=== PATIENT | male | born 1965 | race Caucasian/White ===

== ENCOUNTER 2016-03-24 14:28 | Outpatient (CLI) | payer MEDICAID | END 2016-03-24 14:29 | disposition home or self-care (01) | DX: M51.36 Other intervertebral disc degeneration, lumbar region (principal) ==

== ENCOUNTER 2016-12-12 09:45 | Outpatient (CLI) | payer MEDICAID | END 2016-12-12 10:00 | disposition home or self-care (01) | LOC: RT.N 09:45 | PROVIDERS: ATTEND Nurse Practitioner Gerontology | DX: R07.9 Chest pain, unspecified (principal) | CPT/HCPCS: 93005 ==

== ENCOUNTER 2017-01-16 11:06 | Emergency (ER) | payer MEDICAID ==
--- NOTE | 2017-01-16 11:44 | ED Physician Documentation ---
History of Present Illness - Stated complaint Stated Complaint: R SIDE TINGLE/BACK AND HEAD PX - Chief complaint Chief Complaint: General - Additonal information Additional information: hx from pt 51 male hx CAD AL, also pancreatitis felt fine yesterday today has right rided head jaw neck pain into upper back that feels like an elephant is sitting on him no SOA very weak and dizzy no fever no cough no SOA no bloody black BM no abd pain no recent med changes Review of Systems Constitutional: reports: Fatigue. denies: Fever, Chills Cardiac: denies: Chest pain / pressure Respiratory: denies: Dyspnea GI: denies: Nausea, Vomiting, Diarrhea, Bloody / black stool : denies: Dysuria Musculoskeletal: reports: Neck pain, Back pain Neurologic: reports: Generalized weakness Endocrine: denies: Easy bruising / bleeding Immunocompromised: denies: Immunocompromised PD PAST MEDICAL HISTORY - Past Medical History Cardiovascular: [place], Other Respiratory: None Neuro: Headache/migraine, Head injury, Peripheral neuropathy Endocrine/Autoimmune: None GI: None : None HEENT: None Psych: Depression Musculoskeletal: Osteoarthritis Derm: None - Past Surgical History Past Surgical History: Yes General: Colonoscopy Ortho: Other - Present Medications Home Medications: Ambulatory Orders Medication Instructions Recorded Confirmed Ascorbic Acid/Bioflavonoids [Vit 1,000 mg PO DAILY 08/23/13 09/23/13 C-Bioflavonoids Tab SA] FLUoxetine [PROzac] 40 mg PO DAILY 08/23/13 09/23/13 Gabapentin [Neurontin] 600 mg PO TID 08/23/13 09/23/13 Potassium Gluconate 550 mg PO DAILY 08/23/13 09/23/13 Trazodone HCl 100 mg PO QPM 08/23/13 09/23/13 Vit B12/FA/Pyridoxine HCl/Aa15 2,500 mg PO DAILY 08/23/13 09/23/13 [Glycotrol Capsule] Amox/Clav 875/125 [Augmentin] 1 each PO Q12H #20 tablet 01/16/17 - Allergies Allergies/Adverse Reactions: Allergies Allergy/AdvReac Type Severity Reaction Status Date / Time No Known Drug Allergies Allergy Verified 08/23/13 11:31 - Social History Does the pt smoke?: Yes Smoking Status: Current every day smoker Does the pt drink ETOH?: Yes Does the pt have substance abuse?: No - Immunizations Immunizations are current?: Yes PD ED PE NORMAL - Vitals Vital signs reviewed: Yes - General General: Alert and oriented X 3 - HEENT HEENT: PERRL - Neck Neck: Supple, no meningeal sign - Cardiac Cardiac: RRR - Respiratory Respiratory: No respiratory distress, Clear bilaterally - Abdomen Abdomen: Soft, Non tender, Other (no pulsatile mass) - Derm Derm: Normal color (not pale or diaphoretic) - Extremities Extremities: No deformity - Neuro Neuro: Alert and oriented X 3 Results - Vitals Vitals: Vital Signs - 24 hr 01/16/17 01/16/17 01/16/17 11:19 12:00 12:49 Temperature 36.0 C L Heart Rate 96 74 78 Respiratory 18 19 17 Rate Blood Pressure 63/37 L 88/55 L 81/46 L O2 Saturation 97 100 99 01/16/17 01/16/17 01/16/17 13:05 13:46 15:08 Temperature Heart Rate 62 67 74 Respiratory 12 16 16 Rate Blood Pressure 96/62 107/75 122/68 O2 Saturation 99 97 100 Oxygen O2 Source Room air - EKG (time done) 1145 Rate: Rate (enter#) Rhythm: NSR [place]: RAD Intervals: Prolonged QT Ischemia: Normal ST segments - Labs Labs: Laboratory Tests 01/16/17 01/16/17 01/16/17 11:08 11:40 11:40 WBC 6.6 RBC 3.54 L Hgb 12.7 L Hct 36.7 L MCV 103.6 H MCH 35.8 H MCHC 34.5 RDW 14.1 Plt Count 269 MPV 7.4 Neut # 4.1 Lymph # 1.4 L [place] # 0.8 Eos # 0.1 Baso # 0.1 Absolute Nucleated RBC 0.01 Nucleated RBC % 0.1 Sodium 137 Potassium 3.2 L Chloride 101 Carbon Dioxide 21 Anion Gap 15.0 H BUN 19 Creatinine 1.5 H Estimated GFR (MDRD) 49 L Glucose 101 H Lactic Acid 3.2 H* Calcium 9.4 Total Bilirubin 0.4 AST 69 H ALT 54 Alkaline Phosphatase 56 Troponin I Total Protein 7.6 Albumin 4.2 Globulin 3.4 Albumin/Globulin Ratio 1.2 Lipase 62 H Urine Color Urine Clarity Urine pH Ur Specific [place] Urine Protein Urine Glucose (UA) Urine Ketones Urine Occult Blood Urine Nitrite Urine Bilirubin Urine Urobilinogen Ur Leukocyte Esterase Urine RBC Urine WBC Ur Squamous Epith Cells Urine Bacteria Urine Casts Ur Microscopic Review Urine Culture Comments Urine Opiates Screen Ur Oxycodone Screen Urine Methadone Screen Ur Propoxyphene Screen Ur Barbiturates Screen Ur Tricyclics Screen Ur Phencyclidine Scrn Ur Amphetamine Screen U Methamphetamines Scrn U Benzodiazepines Scrn Urine Cocaine Screen U Cannabinoids Screen 01/16/17 01/16/17 11:40 13:00 WBC RBC Hgb Hct MCV MCH MCHC RDW Plt Count MPV Neut # Lymph # [place] # Eos # Baso # Absolute Nucleated RBC Nucleated RBC % Sodium Potassium Chloride Carbon Dioxide Anion Gap BUN Creatinine Estimated GFR (MDRD) Glucose Lactic Acid Calcium Total Bilirubin AST ALT Alkaline Phosphatase Troponin I < 0.04 Total Protein Albumin Globulin Albumin/Globulin Ratio Lipase Urine Color YELLOW Urine Clarity HAZY Urine pH 6.0 Ur Specific [place] 1.025 Urine Protein NEGATIVE Urine Glucose (UA) NEGATIVE Urine Ketones TRACE Urine Occult Blood NEGATIVE Urine Nitrite NEGATIVE Urine Bilirubin NEGATIVE Urine Urobilinogen 0.2 (NORMAL) Ur Leukocyte Esterase TRACE H Urine RBC 0-5 Urine WBC 4-5 Ur Squamous Epith Cells RARE Squamous Urine Bacteria None Seen Urine Casts >50 Hyaline Casts Ur Microscopic Review INDICATED Urine Culture Comments INDICATED Urine Opiates Screen NEGATIVE Ur Oxycodone Screen NEGATIVE Urine Methadone Screen NEGATIVE Ur Propoxyphene Screen NEGATIVE Ur Barbiturates Screen NEGATIVE Ur Tricyclics Screen NEGATIVE Ur Phencyclidine Scrn NEGATIVE Ur Amphetamine Screen NEGATIVE U Methamphetamines Scrn NEGATIVE U Benzodiazepines Scrn NEGATIVE Urine Cocaine Screen NEGATIVE U Cannabinoids Screen NEGATIVE - Rads (name of study) CXR Radiology: See rad report (no acute) PD MEDICAL DECISION MAKING - ED course ED course: hypotension no fever but elev lactate - possible sepsis - etiology unclear - deneis IVDA, no murmur, neg CXR, neg UA, no skin lesions- gave invanz also c/o neck and back pressure EKG no acute and trop neg denies bloody black BM and nl H/H no recent med changes recommended admit for presumed sepsis and further eval and care such as IVF antibiotics echo etc but pt refuses to stay in the hospital stating he does not like hospitals I explained I cannot fix sepsis and/or hypotension in just an ER visit and that i strongly rec admission and he might if he leaves - he still chooses to leave - he is lucid, does not seem intoxicated, understands what i am saying and can repeat back, appears to have the capacity to sign out AMA so gave 30cc/kg + IVF and invanv pt felt better will dc AMA with augmentin and pt will need to fup [facility] for a recheck and return if worse we spoke at length Departure - Departure Disposition: 07 Against Medical Advice Clinical Impression: Renal insufficiency, Hypokalemia, Prolonged QT interval Hypotension Qualifiers: Hypotension type: unspecified hypotension type Qualified Code(s): I95.9 - Hypotension, unspecified Sepsis Qualifiers: Sepsis type: sepsis due to unspecified organism Qualified Code(s): A41.9 - Sepsis, unspecified organism Condition: Serious Instructions: ED Bacteremia Rule Out, ED Hypotension All Causes Follow-Up: Melanie Cage ARNP [Primary Care Provider] - (Thursday for an ER follow up - say you need urgent ER follow up) Prescriptions: Amox/Clav 875/125 [Augmentin] 1 each PO Q12H #20 tablet Comments: Your blood pressure was dangerously low. I am not certain what caused this, but think infection is a likely cause. Other possibilities would include issues such as internal bleeding and heart problems. I have recommended you be admitted for further care and evaluation but you are declining to be admitted. Even after I explained you might or be injured and lose your present ability to live independently you are declining admission and signing out against advise. If at any point over the weekend you change your mind or feel worse, please come straight back - we are not mad at you and would welcome the opportunity to provide further care Otherwise drink lots of fluids, take your antibiotics and follow up at [facility] Thursday Discharge Date/Time: 01/16/17 15:40
[2017-01-16 11:57] LABS: BASOPHILS # (AUTO) 0.1 10^3/uL (0.0-0.1); BASOPHILS % (AUTO) 1.2 %; EOSINOPHILS # (AUTO) 0.1 10^3/uL (0.0-0.7); HCT - HEMATOCRIT 36.7 % (42.0-52.0); HGB - HEMOGLOBIN 12.7 g/dL (14.0-18.0); LYMPHOCYTES # (AUTO) 1.4 10^3/uL (1.5-3.5); LYMPHOCYTES % (AUTO) 21.4 %; MEAN CORPUSCULAR HEMOGLOBIN 35.8 pg (27.0-31.0); MEAN CORPUSCULAR HGB CONC 34.5 g/dL (32.0-36.0); MEAN CORPUSCULAR VOLUME 103.6 fL (80.0-94.0); MEAN PLATELET VOLUME 7.4 fL (7.4-11.4); MONOCYTES # (AUTO) 0.8 10^3/uL (0.0-1.0); MONOCYTES % (AUTO) 12.5 %; NEUTROPHILS # (AUTO) 4.1 10^3/uL (1.5-6.6); NEUTROPHILS % (AUTO) 62.9 %; NUCLEATED RED BLOOD CELLS AUTO 0.1 /100WBC; RED BLOOD COUNT 3.54 10^6/uL (4.70-6.10); RED CELL DISTRIBUTION WIDTH 14.1 % (12.0-15.0); UNCORRECTED WHITE BLOOD COUNT 6.6 x10^3/uL; WHITE BLOOD COUNT 6.6 x10^3/uL (4.8-10.8)
[2017-01-16] MEDS: SODIUM CHLORIDE 0.9% 1,000 ML IV ONE ×2 (12:00→14:21)
[2017-01-16 12:05] LABS: ALBUMIN/GLOBULIN RATIO 1.2 (1.0-2.2); BILIRUBIN,TOTAL 0.4 mg/dL (0.2-1.0); CALCIUM 9.4 mg/dL (8.5-10.3); CREATININE 1.5 mg/dL (0.6-1.2); POTASSIUM 3.2 mmol/L (3.5-5.0); TOTAL PROTEIN 7.6 g/dL (6.7-8.2)
--- NOTE | 2017-01-16 12:06 | XRAY Preliminary Report ---
Exam: XR CHEST 1 VIEW IMPRESSION: Negative for cardiomegaly or acute cardiopulmonary process. [facility] SITE ID: [id number]
--- NOTE | 2017-01-16 12:09 | XRAY Report ---
EXAM: CHEST RADIOGRAPHY EXAM DATE: 01/16/2017 11:49 AM. CLINICAL HISTORY: Hypotension and chest pain. COMPARISON: No prior chest x-ray for comparison, chest CT on 08/20/2013. TECHNIQUE: 1 view. FINDINGS: Lungs/Pleura: Bilateral moderate emphysematous lengths with pulmonary blebs in the bilateral apical l kamla zone, a hyperdense nodule, likely calcified nodule in the lateral left midlung zone of 6 mm witho ut focal opacities evident. No pleural effusion. No pneumothorax. Mediastinum: Within exam limitations, the cardiomediastinal contour is normal. IMPRESSION: Negative for cardiomegaly or acute cardiopulmonary process. [facility] Referring Provider Line: [phone] SITE ID: [id number]
[2017-01-16] MEDS ORDERED: ERTAPENEM 1 GM in SODIUM CHLORIDE 0.9% MINIBAG 100 ML IV STA (12:41)
[2017-01-16 13:22] LABS: BILIRUBIN,URINE NEGATIVE (NEGATIVE); UA w/ MICROSCOPIC CHARGE YES
[2017-01-16 13:28] LABS: UR CULTURE IF IND INDICATED
[2017-01-16] MEDS ORDERED: SODIUM CHLORIDE 0.9% 2,000 ML IV ONE (14:04)
[2017-01-16 15:09] VITALS: BP 122/68
[2017-01-16] MEDS ORDERED: POTASSIUM CHLORIDE 20 MEQ TABLET PO STA (15:23)
[2017-01-16] MEDS ORDERED: POTASSIUM CHLORIDE 20 MEQ TABLET PO ONE (15:39)
== END 2017-01-16 15:40 | disposition left against medical advice (07) ==
LOC: ED 11:06
DX: I95.9 Hypotension, unspecified (principal); A41.9 Sepsis, unspecified organism; I45.81 Long QT syndrome; N28.9 Disorder of kidney and ureter, unspecified; E87.6 Hypokalemia; I25.10 Atherosclerotic heart disease of native coronary artery without angina pectoris; I25.2 Old myocardial infarction; M19.90 Unspecified osteoarthritis, unspecified site; G62.9 Polyneuropathy, unspecified; F17.200 Nicotine dependence, unspecified, uncomplicated
CPT/HCPCS: 36415; 71010; 80053; 80306; 81001; 83605; 83690; 84484; 85025; 87040; 87086; 93005; 96361; 96365; 99284; A9270; J1335; 81003

== ENCOUNTER 2017-04-25 13:02 | Emergency (ER) | payer MEDICAID ==
--- NOTE | 2017-04-25 13:32 | ED Physician Documentation ---
PD HPI LOWER EXT INJURY - Stated complaint Stated Complaint: KNEE PX - Chief complaint Chief Complaint: Ext Problem - History obtained from History obtained from: Patient - History of Present Illness PD HPI LOW EXT INJURY LOCATION: Left, Knee Type of injury: Twist Where injury occurred: Other (stepping over a log last night) Timing - duration: Days (1) Timing - details: Abrupt onset Pain level max: 10 Pain level now: 7 Improved by: Rest, Ice, Immobilization Worsened by: Moving, Palpating Associated symptoms: No: Weakness, Numbness, Tingling Contributing factors: No: Anticoagulated, Prior ortho surgery Similar symptoms before: Has not had sx before Recently seen: Not recently seen - Additional information Additional information: also complains of L ear pain. Thinks it may be infected. Review of Systems Constitutional: denies: Fever, Chills Ears: reports: Ear pain (L ear) Nose: reports: Rhinorrhea / runny nose, Congestion Cardiac: denies: Chest pain / pressure Respiratory: denies: Cough Skin: denies: Rash PD PAST MEDICAL HISTORY - Past Medical History Past Medical History: Yes Cardiovascular: [place], Other Respiratory: None Neuro: Headache/migraine, Head injury, Peripheral neuropathy Endocrine/Autoimmune: None GI: None : None HEENT: None Psych: Depression Musculoskeletal: Osteoarthritis Derm: None - Past Surgical History Past Surgical History: Yes General: Colonoscopy Ortho: Other - Present Medications Home Medications: Ambulatory Orders Medication Instructions Recorded Confirmed Ascorbic Acid/Bioflavonoids [Vit 1,000 mg PO DAILY 08/23/13 09/23/13 C-Bioflavonoids Tab SA] FLUoxetine [PROzac] 40 mg PO DAILY 08/23/13 09/23/13 Gabapentin [Neurontin] 600 mg PO TID 08/23/13 09/23/13 Potassium Gluconate 550 mg PO DAILY 08/23/13 09/23/13 Trazodone HCl 100 mg PO QPM 08/23/13 09/23/13 Vit B12/FA/Pyridoxine HCl/Aa15 2,500 mg PO DAILY 08/23/13 09/23/13 [Glycotrol Capsule] Amox/Clav 875/125 [Augmentin] 1 each PO Q12H #20 tablet 01/16/17 Azithromycin [Zithromax] 0 mg PO DAILY #6 tablet 04/25/17 Cyclobenzaprine [Flexeril] 10 mg PO TID PRN #20 tablet 04/25/17 Ibuprofen [Motrin] 800 mg PO Q8H PRN #30 tablet 04/25/17 Meloxicam 04/25/17 Omeprazole [PriLOSEC] 04/25/17 - Allergies Allergies/Adverse Reactions: Allergies Allergy/AdvReac Type Severity Reaction Status Date / Time No Known Drug Allergies Allergy Verified 04/25/17 13:15 - Social History Does the pt smoke?: Yes Smoking Status: Current every day smoker Does the pt drink ETOH?: Yes Does the pt have substance abuse?: No - Immunizations Immunizations are current?: Yes - POLST Patient has POLST: No PD ED PE NORMAL - Vitals Vital signs reviewed: Yes - General General: Alert and oriented X 3, No acute distress - HEENT HEENT: Other (L ear - TM is erythematous, dull, bulging with fluid present. R TM normal.) - Derm Derm: Warm and dry - Extremities Extremities: Other (Left knee - Diffusely tender to palpation. Mild joint effusion. ACL, MCL, PCL, LCL intact.) - Neuro Neuro: Alert and oriented X 3 - Psych Psych: Normal mood, Normal affect Results - Vitals Vitals: Vital Signs - 24 hr 04/25/17 04/25/17 13:10 15:23 Temperature 37.1 C Heart Rate 87 89 Respiratory 16 20 Rate Blood Pressure 120/86 H 112/84 H O2 Saturation 94 95 Oxygen O2 Source Room air - Rads (name of study) L knee xray Radiology: Prelim report reviewed, EMP read contemporaneously, See rad report ( No acute fracture or dislocation) PD MEDICAL DECISION MAKING - ED course Complexity details: reviewed results, re-evaluated patient, considered differential, d/w patient ED course: Patient is a 52-year-old gentleman who presents to the emergency department with a left knee sprain. Placed in an David wrap for comfort and given crutches. Will make weightbearing as tolerated. He declines pain medication here. Also appears to have a left acute otitis media. Will place on antibiotics for this. Patient counseled regarding signs and symptoms for which I believe and urgent re-evaluation would be necessary. Patient with good understanding of and agreement to plan and is comfortable going home at this time This document was made in part using voice recognition software. While efforts are made to proofread this document, sound alike and grammatical errors may occur. Departure - Departure Disposition: 01 Home, Self Care Clinical Impression: Left knee sprain Qualifiers: Encounter type: initial encounter Involved ligament of knee: unspecified ligament Qualified Code(s): S83.92XA - Sprain of unspecified site of left knee, initial encounter Otitis media Qualifiers: Otitis media type: suppurative Chronicity: acute Laterality: left Recurrence: not specified as recurrent Spontaneous tympanic membrane rupture: without spontaneous rupture Qualified Code(s): H66.002 - Acute suppurative otitis media without spontaneous rupture of ear drum, left ear Condition: Good Instructions: ED Sprain Knee, ED Otitis Media Acute Adult Follow-Up: Melanie Cage ARNP [Primary Care Provider] - Within 1 week Prescriptions: Azithromycin [Zithromax] 0 mg PO DAILY #6 tablet Cyclobenzaprine [Flexeril] 10 mg PO TID PRN #20 tablet PRN Reason: Spasms Ibuprofen [Motrin] 800 mg PO Q8H PRN #30 tablet PRN Reason: PAIN &/OR FEVER Comments: Your x-rays are normal today. Return if you worsen. You may bear weight as tolerated. Use the medications as needed to help with pain. Forms: Activity restrictions Discharge Date/Time: 04/25/17 15:22
--- NOTE | 2017-04-25 14:28 | XRAY Report ---
EXAM: LEFT KNEE RADIOGRAPHY EXAM DATE: 04/25/2017 02:09 PM. CLINICAL HISTORY: L knee pain, s/p twisting injury. COMPARISON: 06/27/2013. TECHNIQUE: 3 views. FINDINGS: Bones: Normal. No fractures or bone lesions. Joints: No effusion. No dislocation. Minimal osteoarthritis. Soft Tissues: Normal. No soft tissue swelling. IMPRESSION: No acute fracture or dislocation. [facility] Referring Provider Line: [phone] SITE ID: [id number]
[2017-04-25] MEDS ORDERED: CYCLOBENZAPRINE 10 MG TABLET PO STA (14:52)
[2017-04-25] MEDS ORDERED: KETOROLAC 60 MG/2 ML VIAL IM STA (14:52)
[2017-04-25 15:24] VITALS: BP 112/84
== END 2017-04-25 15:22 | disposition home or self-care (01) ==
LOC: ED 13:02
DX: S83.92XA Sprain of unspecified site of left knee, initial encounter (principal); H66.002 Acute suppurative otitis media without spontaneous rupture of ear drum, left ear; X50.9XXA Other and unspecified overexertion or strenuous movements or postures, initial encounter; Y93.01 Activity, walking, marching and hiking; I25.2 Old myocardial infarction; F17.200 Nicotine dependence, unspecified, uncomplicated
CPT/HCPCS: 73564; 96372; 99283; 99284; A9270

== ENCOUNTER 2017-12-02 11:07 | Emergency (ER) | payer MEDICAID ==
[2017-12-02 11:17] VITALS: BP 130/89
--- NOTE | 2017-12-02 11:31 | ED Physician Documentation ---
PD HPI UPPER EXT INJURY - Stated complaint Stated Complaint: LT ARM INJ - Chief complaint Chief Complaint: Ext Problem - History obtained from History obtained from: Patient - History of Present Illness Location: Left, Forearm, Wrist, Hand Type of injury: Fall Where injury occurred: Street Timing - onset: Last night Timing - duration: Hours Timing - details: Abrupt onset, Still present Improved by: Rest, Immobilization Worsened by: Moving, Palpating Associated symptoms: Swelling. No: Weakness, Numbness Contributing factors: No: Anticoagulated Similar symptoms before: Has not had sx before Recently seen: Not recently seen - Additonal information Additional information: Previously well 52-year-old male was walking down a hill last night when he tripped forward and fell onto his outstretched left hand. He is left-handed and has a lot of swelling in the hand wrist and forearm. He has pain from the mid forearm to the hand and the swelling is on the radial aspect of the hand. Review of Systems Constitutional: denies: Fever Eyes: denies: Decreased vision Ears: denies: Ear pain Nose: denies: Congestion Throat: denies: Sore throat Cardiac: denies: Chest pain / pressure Respiratory: denies: Dyspnea, Cough GI: denies: Nausea, Vomiting : denies: Dysuria Skin: denies: Rash Musculoskeletal: reports: Extremity pain, Joint pain, Extremity swelling, Joint swelling. denies: Neck pain, Back pain Neurologic: reports: Head injury. denies: Generalized weakness, Focal weakness, Numbness, Confused, Altered mental status, Headache, LOC PD PAST MEDICAL HISTORY - Past Medical History Cardiovascular: [place], Other Respiratory: None Endocrine/Autoimmune: None GI: None : None HEENT: None Psych: Depression Musculoskeletal: Osteoarthritis Derm: None - Past Surgical History Past Surgical History: Yes General: Colonoscopy Ortho: Other - Present Medications Home Medications: Ambulatory Orders Medication Instructions Recorded Confirmed Ascorbic Acid/Bioflavonoids [Vit 1,000 mg PO DAILY 08/23/13 09/23/13 C-Bioflavonoids Tab SA] FLUoxetine [PROzac] 40 mg PO DAILY 08/23/13 09/23/13 Gabapentin [Neurontin] 600 mg PO TID 08/23/13 09/23/13 Potassium Gluconate 550 mg PO DAILY 08/23/13 09/23/13 Trazodone HCl 100 mg PO QPM 08/23/13 09/23/13 Vit B12/FA/Pyridoxine HCl/Aa15 2,500 mg PO DAILY 08/23/13 09/23/13 [Glycotrol Capsule] Amox/Clav 875/125 [Augmentin] 1 each PO Q12H #20 tablet 01/16/17 Azithromycin [Zithromax] 0 mg PO DAILY #6 tablet 04/25/17 Cyclobenzaprine [Flexeril] 10 mg PO TID PRN #20 tablet 04/25/17 Ibuprofen [Motrin] 800 mg PO Q8H PRN #30 tablet 04/25/17 Meloxicam 04/25/17 Omeprazole [PriLOSEC] 04/25/17 HYDROcod/ACETAM 5/325 [[place] 5/325] 1 - 2 ea PO Q6H PRN #15 tablet 12/02/17 - Allergies Allergies/Adverse Reactions: Allergies Allergy/AdvReac Type Severity Reaction Status Date / Time No Known Drug Allergies Allergy Verified 12/02/17 11:17 - Social History Does the pt smoke?: Yes Smoking Status: Current every day smoker Does the pt drink ETOH?: Yes Does the pt have substance abuse?: No - Immunizations Immunizations are current?: Yes - POLST Patient has POLST: No PD ED PE NORMAL - Vitals Vital signs reviewed: Yes (tachy and hypertensive ) - General General: Alert and oriented X 3, No acute distress, Well developed/nourished - HEENT HEENT: PERRL, EOMI, Other (There is a small bump to the right parietal area with mild tenderness) - Neck Neck: Supple, no meningeal sign, No bony TTP - Respiratory Respiratory: No respiratory distress - Back Back: No CVA TTP - Derm Derm: Normal color, Warm and dry, No rash - Extremities Extremities: Other (There is swelling to the left wrist that extends to about [address] up the forearm. There is swelling to the hand over the radial aspect from the 3rd to the 1st MC. There is significant tenderness especially to the dorsal radial wrist. distal n/v is intact. ) - Neuro Neuro: Alert and oriented X 3, integration architect 2-12 intact, No motor deficit, No sensory deficit, Normal speech Eye Opening: Spontaneous Motor: Obeys Commands Verbal: Oriented GCS Score: 15 - Psych Psych: Normal mood, Normal affect Results - Vitals Vitals: Vital Signs - 24 hr 12/02/17 11:14 Temperature 36.7 C Heart Rate 105 H Respiratory 16 Rate Blood Pressure 130/89 H O2 Saturation 95 Oxygen O2 Source Room air - Rads (name of study) left forearm Radiology: Prelim report reviewed (Impression: Acute fracture of the distal radius in near anatomic alignment.), EMP read indepedently, See rad report left hand Radiology: Prelim report reviewed (Impression: No acute osseous abnormality in the hand.), EMP read indepedently, See rad report PD MEDICAL DECISION MAKING - ED course Complexity details: reviewed results, re-evaluated patient, considered differential, d/w patient ED course: 52-year-old male with a FOOSH has a nondisplaced fracture of the distal left radius. He is placed into a volar splint and will follow up with orthopedics. Departure - Departure Disposition: 01 Home, Self Care Clinical Impression: Distal radius fracture, left Qualifiers: Encounter type: initial encounter Fracture type: closed Fracture morphology: other extra-articular Qualified Code(s): S52.552A - Other extraarticular fracture of lower end of left radius, initial encounter for closed fracture Condition: Stable Instructions: ED Fx Forearm Radius Ulna No Redu Requ Follow-Up: Melanie Cage ARNP [Primary Care Provider] - [facility] [Provider Group] Prescriptions: HYDROcod/ACETAM 5/325 [[place] 5/325] 1 - 2 ea PO Q6H PRN #15 tablet PRN Reason: Pain
--- NOTE | 2017-12-02 12:47 | XRAY Report ---
Reason: FOOSH pain swelling radial hand Procedure Date: 12/02/2017 Accession Number: [id number] / [id number] Procedure: XR - Hand 3 View LT CPT Code: FULL RESULT: EXAM: LEFT HAND RADIOGRAPHY EXAM DATE: 12/02/2017 12:21 PM. CLINICAL HISTORY: FOOSH; pain swelling radial hand. COMPARISON: FOREARM LT 12/02/2017 12:03 PM. TECHNIQUE: 3 views. FINDINGS: Bones: Distal radius fracture detailed on concurrent forearm radiography. No acute fracture in the hand. Chronic deformity from old, healed distal fifth metacarpal fracture. Joints: Mild degenerative change. No dislocation. Soft Tissues: Dorsal soft tissue swelling. IMPRESSION: No acute osseous abnormality in the hand. [facility]
--- NOTE | 2017-12-02 12:48 | XRAY Report ---
Reason: FOOSH pain from mid forearm to hand Procedure Date: 12/02/2017 Accession Number: [id number] / [id number] Procedure: XR - Forearm LT CPT Code: FULL RESULT: EXAM: LEFT FOREARM RADIOGRAPHY EXAM DATE: 12/02/2017 12:21 PM. CLINICAL HISTORY: FOOSH; pain from mid forearm to hand. COMPARISON: None. TECHNIQUE: 2 views. FINDINGS: Bones: Acute, nondisplaced fracture of the distal radial metaphysis without abnormal angulation. Fracture line does not definitely extend to the articular surface. No other acute fracture. Plate and screw fixation of the mid ulnar diaphysis is without evidence of loosening or failure. Joints: No dislocation at the wrist or elbow. Soft Tissues: Distal soft tissue swelling. IMPRESSION: Acute fracture of the distal radius in near anatomic alignment. [facility]
== END 2017-12-02 13:06 | disposition home or self-care (01) ==
LOC: ED 11:07
DX: S52.552A Other extraarticular fracture of lower end of left radius, initial encounter for closed fracture (principal); W01.0XXA Fall on same level from slipping, tripping and stumbling without subsequent striking against object, initial encounter; Y93.01 Activity, walking, marching and hiking; Y92.410 Unspecified street and highway as the place of occurrence of the external cause; I25.2 Old myocardial infarction; F17.200 Nicotine dependence, unspecified, uncomplicated
CPT/HCPCS: 29125; 99283

== ENCOUNTER 2018-04-20 10:48 | Outpatient (CLI) | payer MEDICAID | END 2018-04-20 10:49 | disposition critical access hospital (66) | LOC: EMS 10:48 | PROVIDERS: ATTEND Surgery | DX: S09.90XA Unspecified injury of head, initial encounter (principal); R41.82 Altered mental status, unspecified; M54.2 Cervicalgia; R15.9 Full incontinence of feces; W18.30XA Fall on same level, unspecified, initial encounter; Y93.F2 Activity, caregiving, lifting ==

== ENCOUNTER 2018-04-20 11:03 | Emergency (ER) | payer MEDICAID ==
[2018-04-20] MEDS ORDERED: LACTATED RINGERS 1,000 ML IV STA ×2 (11:14→13:20)
[2018-04-20 11:56] LABS: BASOPHILS # (AUTO) 0.1 10^3/uL (0.0-0.1); EOSINOPHILS % (AUTO) 0.3 %; HGB - HEMOGLOBIN 13.9 g/dL (14.0-18.0); LYMPHOCYTES % (AUTO) 10.6 %; MEAN CORPUSCULAR HEMOGLOBIN 35.3 pg (27.0-31.0); MEAN CORPUSCULAR HGB CONC 33.6 g/dL (32.0-36.0); MEAN PLATELET VOLUME 8.3 fL (7.4-11.4); MONOCYTES # (AUTO) 0.5 10^3/uL (0.0-1.0); MONOCYTES % (AUTO) 5.1 %; NEUTROPHILS # (AUTO) 7.6 10^3/uL (1.5-6.6); PLT - PLATELET COUNT 192 10^3/uL (130-450); RED BLOOD COUNT 3.93 10^6/uL (4.70-6.10); RED CELL DISTRIBUTION WIDTH 14.1 % (12.0-15.0); WHITE BLOOD COUNT 9.2 x10^3/uL (4.8-10.8)
[2018-04-20 12:09] LABS: CALCIUM 8.5 mg/dL (8.5-10.3)
--- NOTE | 2018-04-20 12:31 | CT Report ---
Reason: fall, head injury Procedure Date: 04/20/2018 Accession Number: [id number] / [id number] Procedure: CT - HEAD WO CPT Code: FULL RESULT: EXAM: CT HEAD EXAM DATE: 04/20/2018 11:36 AM. CLINICAL HISTORY: Fall, head injury. COMPARISON: None. TECHNIQUE: Multiaxial CT images were obtained from the foramen magnum to the vertex. Reformats: Sagittal and coronal. IV contrast: None. In accordance with CT protocol optimization, one or more of the following dose reduction techniques were utilized for this exam: automated exposure control, adjustment of mA and/or KV based on patient size, or use of iterative reconstructive technique. FINDINGS: Parenchyma: No intraparenchymal hemorrhage. No evidence of mass, midline shift, or CT findings of infarction. Hunt-white differentiation is distinct. Extraaxial Spaces: Normal for age. No subdural or epidural collections identified. Ventricles: Normal in size and position. Sinuses and Orbits: Imaged paranasal sinuses, orbits, and mastoids show no significant abnormality. Bones: No evidence of fracture or calvarial defect. Other: None. IMPRESSION: Normal noncontrast head CT. [facility]
--- NOTE | 2018-04-20 12:37 | CT Report ---
Reason: fall, neck pain Procedure Date: 04/20/2018 Accession Number: [id number] / [id number] Procedure: CT - CERVICAL SPINE WO CPT Code: FULL RESULT: EXAM: CT CERVICAL SPINE WITHOUT CONTRAST DATE: 04/20/2018 11:36 AM. HISTORY: Fall, neck pain. COMPARISONS: None. TECHNIQUE: Thin-section axial images were acquired of the cervical spine without contrast. Post-processing: Coronal and sagittal reformats. Other: None. In accordance with CT protocol optimization, one or more of the following dose reduction techniques were utilized for this exam: automated exposure control, adjustment of mA and/or KV based on patient size, or use of iterative reconstructive technique. FINDINGS: Alignment: Extensive degenerative changes of the cervical spine are noted in most advanced at the 5 through C7. There is no prevertebral soft tissue swelling. No displaced fracture is identified. There is atherosclerosis of the great vessels. Extensive emphysematous changes are seen within the lungs. Pleural thickening is noted on the right that most likely represents scarring. IMPRESSION: Degenerative changes of the cervical spine without evidence of a displaced fracture. Extensive emphysematous changes in the lung apices. RADIA
[2018-04-20] MEDS ORDERED: PANTOPRAZOLE 40 MG VIAL IVP STA (13:44)
[2018-04-20] MEDS ORDERED: KETOROLAC 30 MG/ML VIAL IVP STA (13:44)
[2018-04-20 15:39] LABS: ALBUMIN 4.6 g/dL (3.2-5.5); ALBUMIN/GLOBULIN RATIO 1.5 (1.0-2.2); BILIRUBIN,TOTAL 0.7 mg/dL (0.2-1.0); CREATININE 1.4 mg/dL (0.6-1.2); TOTAL PROTEIN 7.7 g/dL (6.7-8.2)
--- NOTE | 2018-04-20 15:45 | ED Physician Documentation ---
History of Present Illness - Stated complaint Stated Complaint: GLF/ETOH - Chief complaint Chief Complaint: General - History obtained from History obtained from: Patient, EMS - History of Present Illness Timing: Today Pain level max: 0 Pain level now: 0 Improved by: nothing Worsened by: nothing - Additonal information Additional information: Patient has been drinking heavily for the past 2 days. States that he tried to go help a friend to get up off of the ground when he tripped fell striking his head. Stood up tripped again and fell. Then had an episode of diarrhea on himself. Has no complaints currently. Picked up by EMS and placed in a cervical collar. Review of Systems Unable to obtain: Intoxicated Ten Systems: 10 systems reviewed and negative Constitutional: denies: Fever, Chills Ears: denies: Ear pain Nose: denies: Rhinorrhea / runny nose, Congestion Cardiac: denies: Chest pain / pressure Respiratory: denies: Cough GI: denies: Abdominal Pain, Nausea, Vomiting, Diarrhea Skin: denies: Rash Musculoskeletal: reports: Neck pain Neurologic: reports: Headache PD PAST MEDICAL HISTORY - Past Medical History Cardiovascular: [place], Other Respiratory: None Endocrine/Autoimmune: None GI: None : None HEENT: None Psych: Depression Musculoskeletal: Osteoarthritis Derm: None - Past Surgical History Past Surgical History: Yes General: Colonoscopy Ortho: Other - Present Medications Home Medications: Ambulatory Orders Medication Instructions Recorded Confirmed Ascorbic Acid/Bioflavonoids [Vit 1,000 mg PO DAILY 08/23/13 09/23/13 C-Bioflavonoids Tab SA] FLUoxetine [PROzac] 40 mg PO DAILY 08/23/13 09/23/13 Gabapentin [Neurontin] 600 mg PO TID 08/23/13 09/23/13 Potassium Gluconate 550 mg PO DAILY 08/23/13 09/23/13 Trazodone HCl 100 mg PO QPM 08/23/13 09/23/13 Vit B12/FA/Pyridoxine HCl/Aa15 2,500 mg PO DAILY 08/23/13 09/23/13 [Glycotrol Capsule] Cyclobenzaprine [Flexeril] 10 mg PO TID PRN #20 tablet 04/25/17 Meloxicam 04/25/17 Omeprazole [PriLOSEC] 04/25/17 HYDROcod/ACETAM 5/325 [[place] 5/325] 1 - 2 ea PO Q6H PRN #15 tablet 12/02/17 - Allergies Allergies/Adverse Reactions: Allergies Allergy/AdvReac Type Severity Reaction Status Date / Time carrot Allergy Anaphylaxis Verified 04/20/18 11:14 celery Allergy Anaphylaxis Verified 04/20/18 11:14 - Social History Does the pt smoke?: Yes Smoking Status: Current every day smoker Does the pt drink ETOH?: Yes Does the pt have substance abuse?: No - Immunizations Immunizations are current?: Yes - POLST Patient has POLST: No PD ED PE NORMAL - Vitals Vital signs reviewed: Yes - General General: Alert and oriented X 3, No acute distress, Well developed/nourished - HEENT HEENT: Atraumatic, PERRL, Ears normal, Pharynx benign, Other (Dry lips and tongue) - Neck Neck: Supple, no meningeal sign, Other (Mild diffuse tenderness over the C- spine) - Cardiac Cardiac: RRR, Strong equal pulses - Respiratory Respiratory: No respiratory distress, Clear bilaterally - Abdomen Abdomen: Soft, Non tender, Non distended - Back Back: No spinal TTP - Derm Derm: Warm and dry, No rash - Extremities Extremities: No deformity, Normal ROM s pain - Neuro Neuro: Alert and oriented X 3 Results - Vitals Vitals: Vital Signs - 24 hr 04/20/18 04/20/18 04/20/18 11:09 11:56 13:46 Temperature 35.7 C L 36.5 C Heart Rate 79 99 73 Respiratory 16 16 18 Rate Blood Pressure 95/60 98/57 L 106/67 O2 Saturation 99 99 98 04/20/18 16:02 Temperature 36.7 C Heart Rate 110 H Respiratory 20 Rate Blood Pressure 115/86 H O2 Saturation 100 Oxygen O2 Source Room air - Labs Labs: Laboratory Tests 04/20/18 04/20/18 11:45 11:45 WBC 9.2 RBC 3.93 L Hgb 13.9 L Hct 41.3 L MCV 105.0 H MCH 35.3 H MCHC 33.6 RDW 14.1 Plt Count 192 MPV 8.3 Neut # (Auto) 7.6 H Lymph # (Auto) 1.0 L [place] # (Auto) 0.5 Eos # (Auto) 0.0 Baso # (Auto) 0.1 Absolute Nucleated RBC 0.01 Nucleated RBC % 0.1 Sodium 140 Potassium 3.3 L Chloride 101 Carbon Dioxide 18 L Anion Gap 21.0 H BUN 20 Creatinine 1.4 H Estimated GFR (MDRD) 53 L Glucose 104 H Calcium 8.5 Total Bilirubin 0.7 AST 108 H ALT 68 H Alkaline Phosphatase 76 Total Protein 7.7 Albumin 4.6 Globulin 3.1 Albumin/Globulin Ratio 1.5 Lipase 109 H Ethyl Alcohol 291.8 - Rads (name of study) Head CT Radiology: Prelim report reviewed, EMP read contemporaneously, See rad report (No acute intracranial abnormality) Cervical spine CT Radiology: Prelim report reviewed, EMP read contemporaneously, See rad report (No acute bony abnormality) PD MEDICAL DECISION MAKING - ED course Complexity details: reviewed results, re-evaluated patient, considered differential, d/w patient ED course: 53-year-old male presents to the emergency department with dehydration, alcohol intoxication and a fall with a closed head injury today. No acute findings on CT scan. Feels better after 2 L of fluid. Ambulating well. Has a friend to take him home at this time. Patient counseled regarding signs and symptoms for which I believe and urgent re-evaluation would be necessary. Patient with good understanding of and agreement to plan and is comfortable going home at this time This document was made in part using voice recognition software. While efforts are made to proofread this document, sound alike and grammatical errors may occur. Departure - Departure Disposition: 01 Home, Self Care Clinical Impression: Dehydration Alcohol intoxication Qualifiers: Complication of substance-induced condition: uncomplicated Qualified Code(s): F10.920 - Alcohol use, unspecified with intoxication, uncomplicated Condition: Good Instructions: ED Dehydration, ED Alcohol Intoxication Follow-Up: Melanie Cage ARNP [Primary Care Provider] - Within 1 week Comments: Go home and rest. Drink plenty of water. You need to avoid alcohol. Discharge Date/Time: 04/20/18 16:09
[2018-04-20 16:02] VITALS: BP 115/86
== END 2018-04-20 16:09 | disposition home or self-care (01) ==
LOC: EDBD → EDUNIT# → ED 11:03
DX: E86.0 Dehydration (principal); S09.90XA Unspecified injury of head, initial encounter; W01.0XXA Fall on same level from slipping, tripping and stumbling without subsequent striking against object, initial encounter; F10.920 Alcohol use, unspecified with intoxication, uncomplicated; M54.2 Cervicalgia; R51 Headache; M47.9 Spondylosis, unspecified; F17.200 Nicotine dependence, unspecified, uncomplicated
CPT/HCPCS: 36415; 70450; 72125; 80053; 80320; 83690; 85025; 96361; 96374; 96375; 99284; J7120; 96365; 96366

== ENCOUNTER 2018-07-18 23:04 | Emergency (ER) | payer MEDICAID ==
[2018-07-18] MEDS ORDERED: FOLIC ACID INJ 1 MG, THIAMINE INJ 100 MG, MAGNESIUM SULFATE 2 GM, MULTIVITAMIN 10 ML in... IV STA ×5 (23:53)
--- NOTE | 2018-07-18 23:56 | ED Physician Documentation ---
PD HPI CHEST PAIN - Stated complaint Stated Complaint: AB PX/CP/LIGHTHEADED - Chief complaint Chief Complaint: Cardiac - History obtained from History obtained from: Patient - History of Present Illness Timing - onset: Enter time (1100), Today Timing - onset during: Light activity Timing - duration: Hours (4-5) Timing - details: Abrupt onset, Now resolved Quality: Pressure Location: Substernal, Left chest Radiation: Abdominal. No: Jaw, Neck, Back Improved by: Rest Worsened by: Exertion Associated symptoms: Nausea, Vomiting, Feeling faint / dizzy. No: Shortness of air, Diaphoresis, General Weakness, Palpitations, Cough Similar symptoms before: Diagnosis ([place] 7 yrs ago) Recently seen: Not recently seen - Additional information Additional information: 53-year-old male who reports that he was previously well went through his usual routine this morning and about 11 AM he was outside [employer] when he began to get some abdominal pain nausea and chest pain. He states the chest pain was worse with exertion and that he went inside he did have some vomiting he tried t o drink some Gatorade he continued to have some dry heaving but believes he kept some of the Gatorade down. This evening he has persistence of abdominal pain it is tender and he is here for evaluation. He is currently not having chest pain. He relates that 7 years ago he was hospitalized in [facility] and states that at that time he had an infarction. He did not have angiogram done and he rel ates that he was in the hospital for about 10 days and that there was a question of a mass on his pancreas which was not a cancer. When he came back to [place] he was hospitalized at [facility] for this issue with his pancreas. He denies alcohol withdrawal is a possibility today states that he drinks beer daily but not a lot. Review of Systems Constitutional: reports: Fatigue, Sweats. denies: Fever, Chills, Myalgias Eyes: denies: Decreased vision Ears: denies: Ear pain Nose: denies: Rhinorrhea / runny nose, Congestion Throat: denies: Sore throat Cardiac: reports: Chest pain / pressure. denies: Palpitations, Pedal edema, Calf pain Respiratory: reports: Dyspnea. denies: Cough, Wheezing GI: reports: Abdominal Pain, Nausea, Vomiting, Diarrhea : denies: Dysuria, Frequency PD PAST MEDICAL HISTORY - Past Medical History Past Medical History: No Cardiovascular: Hypertension, [place], Other Respiratory: None Neuro: None Endocrine/Autoimmune: None GI: None : None HEENT: None Psych: Depression Musculoskeletal: Osteoarthritis Derm: None - Past Surgical History Past Surgical History: Yes General: Colonoscopy Ortho: Other - Present Medications Home Medications: Ambulatory Orders Medication Instructions Recorded Confirmed Ascorbic Acid/Bioflavonoids [Vit 1,000 mg PO DAILY 08/23/13 09/23/13 C-Bioflavonoids Tab SA] FLUoxetine [PROzac] 40 mg PO DAILY 08/23/13 09/23/13 Gabapentin [Neurontin] 600 mg PO TID 08/23/13 09/23/13 Potassium Gluconate 550 mg PO DAILY 08/23/13 09/23/13 Trazodone HCl 100 mg PO QPM 08/23/13 09/23/13 Vit B12/FA/Pyridoxine HCl/Aa15 2,500 mg PO DAILY 08/23/13 09/23/13 [Glycotrol Capsule] Cyclobenzaprine [Flexeril] 10 mg PO TID PRN #20 tablet 04/25/17 Meloxicam 7.5 mg PO DAILY 04/25/17 Omeprazole [PriLOSEC] 20 mg PO DAILY 04/25/17 Sucralfate [Carafate] 1 gm PO ACHS #60 tablet 07/19/18 - Allergies Allergies/Adverse Reactions: Allergies Allergy/AdvReac Type Severity Reaction Status Date / Time carrot Allergy Anaphylaxis Verified 07/18/18 23:11 celery Allergy Anaphylaxis Verified 07/18/18 23:11 - Social History Does the pt smoke?: Yes Smoking Status: Current every day smoker Does the pt drink ETOH?: Yes Does the pt have substance abuse?: No - Immunizations Immunizations are current?: Yes - POLST Patient has POLST: No PD ED PE NORMAL - Vitals Vital signs reviewed: Yes (tachy and hypertensive ) - General General: Alert and oriented X 3, No acute distress, Well developed/nourished, Other (Looks like his hair was wet from diaphoresis. Does not appear in distress) - HEENT HEENT: Atraumatic, PERRL, EOMI - Neck Neck: Supple, no meningeal sign, No bony TTP - Cardiac Cardiac: No murmur, Other (tachy to 110) - Respiratory Respiratory: No respiratory distress, Clear bilaterally - Abdomen Abdomen: Soft, Other (epigastric tenderness is specific, reproducible and the source of the patients symptoms. ) - Back Back: No CVA TTP, No spinal TTP - Derm Derm: Normal color, Warm and dry, No rash - Extremities Extremities: No deformity, No edema - Neuro Neuro: Alert and oriented X 3, drawer in stitch bonding machine 2-12 intact, No motor deficit, No sensory deficit, Normal speech Eye Opening: Spontaneous Motor: Obeys Commands Verbal: Oriented GCS Score: 15 - Psych Psych: Normal mood, Normal affect Results - Vitals Vitals: Vital Signs - 24 hr 07/18/18 07/18/18 07/18/18 23:09 23:17 23:41 Temperature 36.4 C L Heart Rate 110 H 88 Respiratory 18 12 Rate Blood Pressure 141/120 H 137/93 H Blood Pressure 158/99 H [Left] O2 Saturation 100 98 07/19/18 07/19/18 07/19/18 00:11 00:30 01:00 Temperature Heart Rate 85 90 84 Respiratory 14 18 16 Rate Blood Pressure 137/88 H 137/77 H 147/88 H Blood Pressure [Left] O2 Saturation 97 98 96 07/19/18 01:30 Temperature Heart Rate 88 Respiratory 17 Rate Blood Pressure 151/93 H Blood Pressure [Left] O2 Saturation 95 Oxygen O2 Source Room air - EKG (time done) 2318 Rate: Rate (enter#) (106) Rhythm: Sinus tachycardia [place]: RAD Ischemia: Other (ST elevation is <1mV and present in multiple leads consistent with veena-carditis) Compare to prior EKG: Changed from prior EKG (STP 1217 rate has increased, QT interval is less today, the ST elevation consistent with veena-carditis is new ) Computer interpretation: Agree with computer - Labs Labs: Laboratory Tests 07/18/18 07/18/18 07/18/18 23:26 23:26 23:26 WBC 6.9 RBC 4.17 L Hgb 14.0 Hct 42.0 MCV 100.8 H MCH 33.7 H MCHC 33.4 RDW 15.2 H Plt Count 377 MPV 8.3 Neut # (Auto) 5.2 Lymph # (Auto) 1.3 L [place] # (Auto) 0.3 Eos # (Auto) 0.0 Baso # (Auto) 0.1 Absolute Nucleated RBC 0.00 Nucleated RBC % 0.0 Sodium 140 Potassium 3.9 Chloride 104 Carbon Dioxide 17 L Anion Gap 19.0 H BUN 21 H Creatinine 1.2 Estimated GFR (MDRD) 63 L Glucose 112 H Calcium 9.1 Magnesium 1.9 Total Bilirubin 0.5 AST 93 H ALT 56 Alkaline Phosphatase 84 Troponin I < 0.04 Total Protein 8.5 H Albumin 4.8 Globulin 3.7 Albumin/Globulin Ratio 1.3 Lipase 41 Urine Color Urine Clarity Urine pH Ur Specific [place] Urine Protein Urine Glucose (UA) Urine Ketones Urine Occult Blood Urine Nitrite Urine Bilirubin Urine Urobilinogen Ur Leukocyte Esterase Ur Microscopic Review Urine Culture Comments Ethyl Alcohol 192.8 07/19/18 00:15 WBC RBC Hgb Hct MCV MCH MCHC RDW Plt Count MPV Neut # (Auto) Lymph # (Auto) [place] # (Auto) Eos # (Auto) Baso # (Auto) Absolute Nucleated RBC Nucleated RBC % Sodium Potassium Chloride Carbon Dioxide Anion Gap BUN Creatinine Estimated GFR (MDRD) Glucose Calcium Magnesium Total Bilirubin AST ALT Alkaline Phosphatase Troponin I Total Protein Albumin Globulin Albumin/Globulin Ratio Lipase Urine Color YELLOW Urine Clarity CLEAR Urine pH 6.0 Ur Specific [place] 1.025 Urine Protein TRACE Urine Glucose (UA) NEGATIVE Urine Ketones 15 H Urine Occult Blood NEGATIVE Urine Nitrite NEGATIVE Urine Bilirubin NEGATIVE Urine Urobilinogen 0.2 (NORMAL) Ur Leukocyte Esterase NEGATIVE Ur Microscopic Review NOT INDICATED Urine Culture Comments NOT INDICATED Ethyl Alcohol - Rads (name of study) chest Radiology: Prelim report reviewed (Impression: COPD without acute process seen in the chest.), Final report received, EMP read indepedently, See rad report Procedures - IVC sono (time) 2340 Bedside IVC sono: IVC measures (cm) (1.2), Dehydration (est 1 liter deficit) PD MEDICAL DECISION MAKING - ED course Complexity details: reviewed old records, reviewed results, re-evaluated patient, considered differential, d/w patient ED course: 53-year-old previously well male complains of some chest and abdominal pain that began today at about 11 AM. His history initially is concerning for acute coronary syndrome but he has resolution of his chest pain prior to coming to the emergency department and he has tenderness on exam to the epigastric area. He is administered a GI cocktail with resolution of his pain. I confronted the patient on his alcohol use with the thought that may be his tachycardia and hypertension were related to alcohol withdrawal and he reassured me that he was not in alcohol withdrawal. He indicated he only drank infrequently and when I confronted him with his blood alcohol level of 192 he indicated that he and his girlfriend had drank quite heavily the night prior. He still indicates he only had one beer today. I suspect his presentation today is gastritis alcohol induced without bleeding and he is administered Carafate as well and we will add that to his regimen of omeprazole. Here in the emergency department the patient was administered a banana bag intravenously as well as the GI cocktail consisting of viscous lidocaine 10 mL's and Mylanta 30 mL's. Departure - Departure Disposition: 01 Home, Self Care Clinical Impression: Gastritis Qualifiers: Gastritis type: alcoholic Chronicity: acute Gastritis bleeding: without bleeding Qualified Code(s): K29.20 - Alcoholic gastritis without bleeding Condition: Stable Instructions: ED PUD Vs Gastritis Follow-Up: Melanie Cage ARNP [Primary Care Provider] - Prescriptions: Sucralfate [Carafate] 1 gm PO ACHS #60 tablet
[2018-07-19 00:05] LABS: BASOPHILS # (AUTO) 0.1 10^3/uL (0.0-0.1); BASOPHILS % (AUTO) 1.3 %; EOSINOPHILS % (AUTO) 0.2 %; LYMPHOCYTES # (AUTO) 1.3 10^3/uL (1.5-3.5); LYMPHOCYTES % (AUTO) 19.1 %; MEAN CORPUSCULAR HEMOGLOBIN 33.7 pg (27.0-31.0); MEAN CORPUSCULAR HGB CONC 33.4 g/dL (32.0-36.0); MEAN CORPUSCULAR VOLUME 100.8 fL (80.0-94.0); MEAN PLATELET VOLUME 8.3 fL (7.4-11.4); MONOCYTES # (AUTO) 0.3 10^3/uL (0.0-1.0); MONOCYTES % (AUTO) 4.5 %; NEUTROPHILS # (AUTO) 5.2 10^3/uL (1.5-6.6); NEUTROPHILS % (AUTO) 74.9 %; PLT - PLATELET COUNT 377 10^3/uL (130-450); RED BLOOD COUNT 4.17 10^6/uL (4.70-6.10); RED CELL DISTRIBUTION WIDTH 15.2 % (12.0-15.0); WHITE BLOOD COUNT 6.9 x10^3/uL (4.8-10.8)
[2018-07-19] MEDS ORDERED: THIAMINE 100 MG/1 ML 2 ML MDV ONE (00:08)
[2018-07-19 00:13] LABS: ALBUMIN 4.8 g/dL (3.2-5.5); ALBUMIN/GLOBULIN RATIO 1.3 (1.0-2.2); BILIRUBIN,TOTAL 0.5 mg/dL (0.2-1.0); CALCIUM 9.1 mg/dL (8.5-10.3); CREATININE 1.2 mg/dL (0.6-1.2); MAGNESIUM 1.9 mg/dL (1.7-2.8); TOTAL PROTEIN 8.5 g/dL (6.7-8.2)
--- NOTE | 2018-07-19 00:24 | XRAY Report ---
Reason: chest pain Procedure Date: 07/19/2018 Accession Number: [id number] / [id number] Procedure: XR - Chest 1 View X-Ray CPT Code: 29732 FULL RESULT: EXAM: CHEST RADIOGRAPHY EXAM DATE: 07/19/2018 12:15 AM. CLINICAL HISTORY: Chest pain. COMPARISON: CHEST 1 VIEW 01/16/2017 11:41 AM, CHEST W/ 08/20/2013 10:45 AM. TECHNIQUE: 1 view. FINDINGS: Lungs/Pleura: Large volumes. No focal pneumonia or overt edema. No pneumothorax or effusion. Calcified left mid lung granuloma is again noted. Mediastinum: Within exam limitations, cardiomediastinal contour is normal. Other: Probable remote left proximal humeral fracture. IMPRESSION: COPD without acute process seen in the chest. RADIA
[2018-07-19 00:25] LABS: BILIRUBIN,URINE NEGATIVE (NEGATIVE); GLUCOSE, URINE (UA) NEGATIVE (NEGATIVE); KETONES,URINE (UA) 15 mg/dL (NEGATIVE); LEUKOCYTE ESTERASE, URINE NEGATIVE (NEGATIVE); NITRITE,URINE NEGATIVE (NEGATIVE); OCCULT BLOOD,URINE NEGATIVE (NEGATIVE); PROTEIN,URINE TRACE mg/dL (NEGATIVE); UROBILINOGEN,URINE 0.2 (NORMAL) E.U./dL (NORMAL)
[2018-07-19 00:26] LABS: CLARITY,URINE CLEAR (CLEAR)
[2018-07-19] MEDS ORDERED: LIDOCAINE VISCOUS 2% 15 ML UDC MM STA (00:36)
[2018-07-19] MEDS ORDERED: MAG HYDROX/AL HYDROX/SIMETH 30 ML UDC PO STA (00:37)
[2018-07-19 01:33] VITALS: BP 151/93
[2018-07-19] MEDS ORDERED: SUCRALFATE 1 GM/10 ML UDC PO STA (01:35)
== END 2018-07-19 01:44 | disposition home or self-care (01) ==
LOC: ED 23:04
DX: K29.20 Alcoholic gastritis without bleeding (principal); E86.0 Dehydration; I10 Essential (primary) hypertension; J44.9 Chronic obstructive pulmonary disease, unspecified; F17.200 Nicotine dependence, unspecified, uncomplicated; I25.2 Old myocardial infarction
CPT/HCPCS: 36415; 71045; 80053; 80320; 81003; 83690; 83735; 84484; 85025; 93005; 96365; 99283; 99284; A9270; J3411; 81001; 87086

== ENCOUNTER 2018-08-10 18:56 | Inpatient (IN) | payer MEDICAID ==
[2018-08-10 19:23] LABS: GLUCOSE, URINE (UA) NEGATIVE (NEGATIVE); KETONES,URINE (UA) TRACE mg/dL (NEGATIVE); LEUKOCYTE ESTERASE, URINE SMALL (NEGATIVE); NITRITE,URINE NEGATIVE (NEGATIVE); OCCULT BLOOD,URINE LARGE (NEGATIVE); PROTEIN,URINE 100 mg/dL (NEGATIVE); UROBILINOGEN,URINE 1 (NORMAL) E.U./dL (NORMAL)
[2018-08-10] MEDS ORDERED: MORPHINE 2 MG/ML CARPUJECT IVP STA (19:26)
[2018-08-10 19:28] LABS: ICTOTEST,URINE POSITIVE
[2018-08-10 19:29] LABS: BILIRUBIN,URINE MODERATE (NEGATIVE); CLARITY,URINE CLOUDY (CLEAR)
--- NOTE | 2018-08-10 19:29 | ED Physician Documentation ---
PD HPI MAJOR TRAUMA - Stated complaint Stated Complaint: GLF - Chief complaint Chief Complaint: Trauma Ch/Bk - History obtained from History obtained from: Patient - History of Present Illness Mechanism of injury: Fell (53-year-old gentleman with history of alcoholism per the chart and chronic back pain got out of the car last night and slipped on his loose shoes and fell backwards hitting his head on the pavement with loss of consciousness. He has a persistent headache and now has neck pain and jaw pain and difficulty chewing because of it. He tried some alcohol today for the pain which was not helpful.) Review of Systems Ten Systems: 10 systems reviewed and negative Constitutional: denies: Fever, Chills Cardiac: denies: Chest pain / pressure, Palpitations Respiratory: denies: Dyspnea, Cough GI: denies: Abdominal Pain, Nausea, Vomiting, Constipation PD PAST MEDICAL HISTORY - Past Medical History Cardiovascular: PA, Other Respiratory: None Neuro: None Endocrine/Autoimmune: None GI: None : None HEENT: None Psych: Depression Musculoskeletal: Osteoarthritis Derm: None - Past Surgical History Past Surgical History: Yes General: Colonoscopy Ortho: Other - Present Medications Home Medications: Ambulatory Orders Medication Instructions Recorded Confirmed Ascorbic Acid/Bioflavonoids [Vit 1,000 mg PO DAILY 08/23/13 09/23/13 C-Bioflavonoids Tab SA] FLUoxetine [PROzac] 40 mg PO DAILY 08/23/13 09/23/13 Gabapentin [Neurontin] 600 mg PO TID 08/23/13 09/23/13 Potassium Gluconate 550 mg PO DAILY 08/23/13 09/23/13 Trazodone HCl 100 mg PO QPM 08/23/13 09/23/13 Vit B12/FA/Pyridoxine HCl/Aa15 2,500 mg PO DAILY 08/23/13 09/23/13 [Glycotrol Capsule] Cyclobenzaprine [Flexeril] 10 mg PO TID PRN #20 tablet 04/25/17 Meloxicam 7.5 mg PO DAILY 04/25/17 Omeprazole [PriLOSEC] 20 mg PO DAILY 04/25/17 Sucralfate [Carafate] 1 gm PO ACHS #60 tablet 07/19/18 - Allergies Allergies/Adverse Reactions: Allergies Allergy/AdvReac Type Severity Reaction Status Date / Time carrot Allergy Anaphylaxis Verified 07/18/18 23:11 celery Allergy Anaphylaxis Verified 07/18/18 23:11 - Social History Does the pt smoke?: Yes Smoking Status: Current every day smoker Does the pt drink ETOH?: Yes Does the pt have substance abuse?: No - Family History Family history: reports: Non contributory - Immunizations Immunizations are current?: Yes - POLST Patient has POLST: No PD ED PE NORMAL - Vitals Vital signs reviewed: Yes - General General: Alert and oriented X 3, No acute distress - HEENT HEENT: Other (He has slight anisocoria, the left pupil is larger than the right, the right pupil is about 2 mm, the left pupil is about 3 mm. He has nystagmus on gaze to either direction. He is tender to both sides of the jaw but without deformity. There is an obvious deformity of the nose, but he says that is old. He has cutaneous scarring to the right parietal area from an old injury, it was not neurosurgical.) - Neck Neck: Other (Quite tender to the mid neck) - Cardiac Cardiac: RRR, No murmur - Respiratory Respiratory: No respiratory distress, Clear bilaterally - Abdomen Abdomen: Normal bowel sounds, Soft, Non tender - Extremities Extremities: No deformity, No tenderness to palpate - Neuro Neuro: Alert and oriented X 3, core man 2-12 intact Eye Opening: Spontaneous Motor: Obeys Commands Verbal: Oriented GCS Score: 15 - Psych Psych: Normal mood, Normal affect Results - Vitals Vitals: Vital Signs - 24 hr 08/10/18 08/10/18 08/10/18 19:04 19:38 20:03 Temperature 36.6 C Heart Rate 111 H 103 H 87 Respiratory 16 16 16 Rate Blood Pressure 99/61 77/50 L 71/53 L O2 Saturation 99 94 94 08/10/18 08/10/18 20:30 21:00 Temperature Heart Rate 86 84 Respiratory 11 L 14 Rate Blood Pressure 84/53 L 86/66 L O2 Saturation 97 99 Oxygen O2 Source Room air - Labs Labs: Laboratory Tests 08/10/18 08/10/18 08/10/18 19:20 19:20 19:26 WBC 7.8 RBC 3.45 L Hgb 11.7 L Hct 35.4 L MCV 102.6 H MCH 33.9 H MCHC 33.1 RDW 15.0 Plt Count 141 MPV 11.1 Neut # (Auto) 5.0 Lymph # (Auto) 1.8 [place] # (Auto) 0.8 Eos # (Auto) 0.2 Baso # (Auto) 0.0 Absolute Nucleated RBC 0.00 Nucleated RBC % 0.0 PT INR VBG pH VBG pCO2 VBG pO2 VBG HCO3 VBG Total CO2 VBG O2 Saturation VBG Base Excess Sodium Potassium Chloride Carbon Dioxide Anion Gap BUN Creatinine Estimated GFR (MDRD) Glucose Lactic Acid Calcium Magnesium Total Bilirubin AST ALT Alkaline Phosphatase Total Protein Albumin Globulin Albumin/Globulin Ratio Lipase Urine Color DARK YELLOW Urine Clarity CLOUDY Urine pH 5.0 Ur Specific [place] >=1.030 H Urine Protein 100 H Urine Glucose (UA) NEGATIVE Urine Ketones TRACE Urine Occult Blood LARGE H Urine Nitrite NEGATIVE Urine Bilirubin MODERATE H Urine Urobilinogen 1 (NORMAL) Ur Leukocyte Esterase SMALL H Urine RBC TNTC H Urine WBC 6-10 H Ur Squamous Epith Cells FEW Squamous Urine Bacteria Few Ur Microscopic Review INDICATED Urine Culture Comments INDICATED Urine Opiates Screen NEGATIVE Ur Oxycodone Screen NEGATIVE Urine Methadone Screen NEGATIVE Ur Propoxyphene Screen NEGATIVE Ur Barbiturates Screen NEGATIVE Ur Tricyclics Screen NEGATIVE Ur Phencyclidine Scrn POSITIVE H Ur Amphetamine Screen NEGATIVE U Methamphetamines Scrn NEGATIVE U Benzodiazepines Scrn NEGATIVE Urine Cocaine Screen NEGATIVE U Cannabinoids Screen NEGATIVE Ethyl Alcohol Serum Ketones 08/10/18 08/10/18 08/10/18 19:26 19:26 20:08 WBC RBC Hgb Hct MCV MCH MCHC RDW Plt Count MPV Neut # (Auto) Lymph # (Auto) [place] # (Auto) Eos # (Auto) Baso # (Auto) Absolute Nucleated RBC Nucleated RBC % PT 10.1 INR 0.9 VBG pH VBG pCO2 VBG pO2 VBG HCO3 VBG Total CO2 VBG O2 Saturation VBG Base Excess Sodium 139 Potassium 3.1 L Chloride 103 Carbon Dioxide 19 L Anion Gap 17.0 H BUN 32 H Creatinine 3.2 H Estimated GFR (MDRD) 20 L Glucose 102 H Lactic Acid Calcium 9.3 Magnesium 1.7 Total Bilirubin 0.5 AST 68 H ALT 38 Alkaline Phosphatase 79 Total Protein 7.2 Albumin 4.2 Globulin 3.0 Albumin/Globulin Ratio 1.4 Lipase 56 H Urine Color Urine Clarity Urine pH Ur Specific [place] Urine Protein Urine Glucose (UA) Urine Ketones Urine Occult Blood Urine Nitrite Urine Bilirubin Urine Urobilinogen Ur Leukocyte Esterase Urine RBC Urine WBC Ur Squamous Epith Cells Urine Bacteria Ur Microscopic Review Urine Culture Comments Urine Opiates Screen Ur Oxycodone Screen Urine Methadone Screen Ur Propoxyphene Screen Ur Barbiturates Screen Ur Tricyclics Screen Ur Phencyclidine Scrn Ur Amphetamine Screen U Methamphetamines Scrn U Benzodiazepines Scrn Urine Cocaine Screen U Cannabinoids Screen Ethyl Alcohol 238.9 Serum Ketones NEGATIVE 08/10/18 08/10/18 20:08 20:08 WBC RBC Hgb Hct MCV MCH MCHC RDW Plt Count MPV Neut # (Auto) Lymph # (Auto) [place] # (Auto) Eos # (Auto) Baso # (Auto) Absolute Nucleated RBC Nucleated RBC % PT INR VBG pH 7.342 VBG pCO2 33.1 L VBG pO2 30.6 VBG HCO3 17.5 L VBG Total CO2 18.6 L VBG O2 Saturation 55.1 L VBG Base Excess -7.2 L Sodium Potassium Chloride Carbon Dioxide Anion Gap BUN Creatinine Estimated GFR (MDRD) Glucose Lactic Acid 3.1 H* Calcium Magnesium Total Bilirubin AST ALT Alkaline Phosphatase Total Protein Albumin Globulin Albumin/Globulin Ratio Lipase Urine Color Urine Clarity Urine pH Ur Specific [place] Urine Protein Urine Glucose (UA) Urine Ketones Urine Occult Blood Urine Nitrite Urine Bilirubin Urine Urobilinogen Ur Leukocyte Esterase Urine RBC Urine WBC Ur Squamous Epith Cells Urine Bacteria Ur Microscopic Review Urine Culture Comments Urine Opiates Screen Ur Oxycodone Screen Urine Methadone Screen Ur Propoxyphene Screen Ur Barbiturates Screen Ur Tricyclics Screen Ur Phencyclidine Scrn Ur Amphetamine Screen U Methamphetamines Scrn U Benzodiazepines Scrn Urine Cocaine Screen U Cannabinoids Screen Ethyl Alcohol Serum Ketones - Rads (name of study) Ct Head/Cervical SPine/Face Radiology: EMP read contemporaneously (Atrophy in the brain without acute trauma, degenerative changes in the neck and advanced emphysema at the lung apices. Chronic deformity of the nose due to old fracture, no acute fractures.) PD MEDICAL DECISION MAKING - ED course ED course: This is a 53-year-old gent with history of alcoholism and fell yesterday. He had head neck and jaw pain but CT imaging of the sites were negative. He is intoxicated he has evidence of acute renal failure with soft evidence of UTI. He was cultured up and given a lot of IV fluid and IV Rocephin. Given the renal failure and electrolyte abnormalities he will need to be admitted for further evaluation and treatment and I spoke with Dr. Yanez for this at 9:30 PM. Departure - Departure Disposition: 66 [facility]H DC/Xfer Clinical Impression: Hypokalemia Alcohol intoxication Qualifiers: Complication of substance-induced condition: uncomplicated Qualified Code(s): F10.920 - Alcohol use, unspecified with intoxication, uncomplicated Renal failure Qualifiers: Renal failure chronicity: acute Acute renal failure type: unspecified Qualified Code(s): N17.9 - Acute kidney failure, unspecified UTI (urinary tract infection) Qualifiers: Urinary tract infection type: site unspecified Hematuria presence: without hematuria Qualified Code(s): N39.0 - Urinary tract infection, site not specified Condition: Serious
[2018-08-10 19:38] LABS: RBC,URINE TNTC /HPF (0-5)
[2018-08-10 19:39] LABS: BACTERIA,URINE Few /HPF (None Seen); SQUAMOUS EPITHELIAL CELL,UR FEW Squamous (<= Few)
[2018-08-10] MEDS ORDERED: SODIUM CHLORIDE 0.9% 1,000 ML IV ONE ×2 (19:39→23:58)
[2018-08-10 19:41] LABS: BASOPHILS % (AUTO) 0.5 %; EOSINOPHILS # (AUTO) 0.2 10^3/uL (0.0-0.7); HGB - HEMOGLOBIN 11.7 g/dL (14.0-18.0); LYMPHOCYTES # (AUTO) 1.8 10^3/uL (1.5-3.5); LYMPHOCYTES % (AUTO) 22.9 %; MEAN CORPUSCULAR HEMOGLOBIN 33.9 pg (27.0-31.0); MEAN CORPUSCULAR HGB CONC 33.1 g/dL (32.0-36.0); MEAN CORPUSCULAR VOLUME 102.6 fL (80.0-94.0); MEAN PLATELET VOLUME 11.1 fL (7.4-11.4); MONOCYTES # (AUTO) 0.8 10^3/uL (0.0-1.0); MONOCYTES % (AUTO) 10.4 %; NEUTROPHILS % (AUTO) 63.7 %; PLT - PLATELET COUNT 141 10^3/uL (130-450); RED BLOOD COUNT 3.45 10^6/uL (4.70-6.10); WHITE BLOOD COUNT 7.8 x10^3/uL (4.8-10.8)
[2018-08-10 19:50] LABS: MUDS CUTOFF CONCENTRATIONS CUTOFF CONC BELOW:
[2018-08-10 19:51] LABS: ALBUMIN 4.2 g/dL (3.2-5.5); ALBUMIN/GLOBULIN RATIO 1.4 (1.0-2.2); BILIRUBIN,TOTAL 0.5 mg/dL (0.2-1.0); CALCIUM 9.3 mg/dL (8.5-10.3); CREATININE 3.2 mg/dL (0.6-1.2); TOTAL PROTEIN 7.2 g/dL (6.7-8.2)
[2018-08-10 19:56] LABS: INR 0.9 (0.8-1.2); PT - PROTHROMBIN TIME 10.1 secs (9.9-12.6)
[2018-08-10] MEDS ORDERED: POTASSIUM CHLOR 10 MEQ/100 ML 10 MEQ/100 ML BAG IV ONE (20:00)
[2018-08-10] MEDS ORDERED: LACTATED RINGERS 1,000 ML IV STA (20:00)
[2018-08-10] MEDS ORDERED: THIAMINE INJ 100 MG in SODIUM CHLORIDE 0.9% 50 ML IV STA (20:01)
[2018-08-10] MEDS ORDERED: cefTRIAXone 1 GM in SODIUM CHLORIDE 0.9% MINIBAG 100 ML IV STA (20:02)
[2018-08-10 20:11] LABS: AMPHETAMINE SCREEN,URINE NEGATIVE (NEGATIVE); BENZODIAZEPINES SCREEN, URINE NEGATIVE (NEGATIVE); COCAINE SCREEN URINE NEGATIVE (NEGATIVE); METHADONE SCREEN, URINE NEGATIVE (NEGATIVE); METHAMPHETAMINES SCREEN, URINE NEGATIVE (NEGATIVE); OPIATE SCREEN, URINE NEGATIVE (NEGATIVE); OXYCODONE SCREEN, URINE NEGATIVE (NEGATIVE); PROPOXYPHENE SCREEN, URINE NEGATIVE (NEGATIVE); TRICYCLIC ANTIDEPRESSANT,URINE NEGATIVE (NEGATIVE)
[2018-08-10 20:19] LABS: VBG BASE EXCESS -7.2 mmol/L (-2 - +2); VBG PCO2 33.1 mmHg (41-51); VBG PH 7.342 (7.31-7.41); VBG PO2 30.6 mmHg (25-47); VBG TOTAL CO2 18.6 mmol/L (24-29)
[2018-08-10 20:22] LABS: MAGNESIUM 1.7 mg/dL (1.7-2.8)
[2018-08-10 20:30] LABS: KETONES, SERUM (ACETEST) NEGATIVE (NEGATIVE)
--- NOTE | 2018-08-10 20:40 | CT Report ---
Reason: head inj Procedure Date: 08/10/2018 Accession Number: [id number] / [id number] Procedure: CT - HEAD WO CPT Code: FULL RESULT: EXAM: CT HEAD EXAM DATE: 08/10/2018 07:56 PM. CLINICAL HISTORY: Fall yesterday with head injury. Possible seizure. COMPARISON: HEAD W/O 04/20/2018 11:29 AM. TECHNIQUE: Multiaxial CT images were obtained from the foramen magnum to the vertex. Reformats: Sagittal and coronal. IV contrast: None. In accordance with CT protocol optimization, one or more of the following dose reduction techniques were utilized for this exam: automated exposure control, adjustment of mA and/or KV based on patient size, or use of iterative reconstructive technique. FINDINGS: Parenchyma: No intraparenchymal hemorrhage. No evidence of mass, midline shift, or CT findings of acute infarction. Hunt-white differentiation is distinct. Extraaxial Spaces: Normal for age. No subdural or epidural collections identified. Ventricles: The ventricles and cortical sulci are prominent. Sinuses and orbits: Imaged paranasal sinuses, orbits, and mastoids show no significant abnormality. Bones: No evidence of fracture or calvarial defect. Other: None. IMPRESSION: Stable age-related cortical atrophic changes without evidence of acute intracranial abnormality. RADIA
--- NOTE | 2018-08-10 20:54 | CT Report ---
Reason: neck pain fall Procedure Date: 08/10/2018 Accession Number: [id number] / [id number] Procedure: CT - CERVICAL SPINE WO CPT Code: FULL RESULT: EXAM: CT CERVICAL SPINE WITHOUT CONTRAST DATE: 08/10/2018 07:56 PM. HISTORY: Neck pain. Fall. COMPARISONS: CERVICAL SPINE W/O 04/20/2018 11:29 AM. TECHNIQUE: Thin-section axial images were acquired of the cervical spine without contrast. Post-processing: Coronal and sagittal reformats. Other: None. In accordance with CT protocol optimization, one or more of the following dose reduction techniques were utilized for this exam: automated exposure control, adjustment of mA and/or KV based on patient size, or use of iterative reconstructive technique. FINDINGS: Alignment: Mild dextroscoliosis. Stable 2 mm anterolisthesis at C4-C5. Bones: No fracture or bone lesion. Interspace Levels/Facets: C1-C2: Unremarkable. C2-C3: Unremarkable. C3-C4: Unremarkable. C4-C5: Mild disk space narrowing with spurring. C5-C6: Advanced disk space narrowing with spurring. C6-C7: Advanced disk space narrowing with spurring. Bilateral foraminal narrowing. C7-T1: Mild disk space narrowing. Musculature: Normal. No fatty atrophy. Other: The paravertebral and prevertebral soft tissues are unremarkable. Advanced emphysema noted in the lung apices. IMPRESSION: 1. No acute cervical spine abnormalities. 2. Multilevel degenerative disk disease, advanced at C5-C6 and C6-C7. 3. Advanced emphysema noted in the lung apices. RADIA
--- NOTE | 2018-08-10 20:57 | CT Report ---
Reason: jaw pain fall Procedure Date: 08/10/2018 Accession Number: [id number] / [id number] Procedure: CT - MAXILLOFACIAL WO CPT Code: FULL RESULT: CT MAXILLOFACIAL WITHOUT CONTRAST INDICATION: 53-year-old male with history of fall yesterday. The patient complains of jaw pain. Please assess. TECHNIQUE: Helical scan through the orbits, maxillofacial region and mandible with reconstruction into 1 mm axial images. In addition, sagittal and coronal reformations have been generated. In accordance with CT protocol optimization, one or more of the following dose reduction techniques were utilized for this exam: automated exposure control, adjustment of mA and/or KV based on patient size, or use of iterative reconstructive technique. COMPARISON: None. FINDINGS: The mandible appears intact and the mandibular condyles are located bilaterally. Noted is periapical lucency surrounding one of the roots for the right mandibular first molar (see image 54 of series #9) consistent with periapical abscess, age indeterminant. There is deformity of the nasal bones. The nose is deviated to the left. These findings are stable when compared to previous head CT 04/20/2018. The deformity is not from an acute nasal fracture. Again demonstrated is deviation of the nasal septum to the right, unchanged. No acute septal fracture is demonstrated. The bony orbital saleem are symmetric and intact. The mid facial structures appear intact. There is mild mucosal thickening scattered throughout the ethmoid air cells. The paranasal sinuses are otherwise clear. Middle ear cavities and imaged mastoid air cells appear clear. The imaged skull base appears intact. No acute fractures identified in the imaged upper/mid cervical spine. Regional soft tissues are unremarkable. IMPRESSION: 1. There is deformity of the nasal bones consistent with the sequela of remote trauma. 2. The facial bones are otherwise unremarkable. No acute fracture is demonstrated.
[2018-08-10] MEDS ORDERED: ONDANSETRON ODT 4 MG TABLET TL PRN (21:47)
[2018-08-10] MEDS ORDERED: LORazepam 2 MG/ML VIAL IVP PRN (21:52)
--- NOTE | 2018-08-10 22:17 | HISTORY & PHYSICAL EXAMINATION ---
Chief Complaint - Chief Complaint Chief Complaint: Status post fall with loss of consciousness and tremors post fall, ETOH use History of Present Illness - Admitted From Admitted From:: ED - History Obtained From Records Reviewed: yes History obtained from: patient Exam Limitations: none - History of Present Illness HPI Comment/Other: 53-year-old gentleman with history of alcoholism per the chart and chronic back pain got out of the car last night and slipped on his loose shoes and fell backwards hitting his head on the pavement with loss of consciousness. He has a persistent headache and now has neck pain and jaw pain and difficulty chewing because of it. He tried some alcohol today for the pain which was not helpful. Patient usually drinks a quart of vodka, previously was drinking beer and whiskey. Patient was found to be hypotensive, hypokalemic, acute kidney injury with a creatinine of 3.2 with baseline running between 1.2-1.4, urine drug screen positive for PCP with a question on false positive of [id number] medication, head CT facial bones and neck were unremarkable with the exception of chronic nasal fracture which patient admits from prior boxing. Serum ketones were negative, lactic acidosis at 3.1, hemoglobin of 11.7, INR of 0.9, alcohol level 238. UA showed pyuria, 6-10 WBCs, RBCs too many count, small leukocyte Esterase, negative nitrite. Lipase 56 with normal LFTs, VBG with metabolic acidosis, INR 0.9. History - Past Medical History Cardiovascular: reports: HI, Other Respiratory: reports: None Neuro: reports: None Endocrine/Autoimmune: reports: None GI: reports: None : reports: None HEENT: reports: None Psych: reports: Depression Musculoskeletal: reports: Osteoarthritis Derm: reports: None MRSA Hx?: No - Past Surgical History General: reports: Colonoscopy Ortho: reports: Other - POLST Patient has POLST: No Meds/Allgy - Home Medications Home Medications: Ambulatory Orders Medication Instructions Recorded Confirmed Ascorbic Acid/Bioflavonoids [Vit 1,000 mg PO DAILY 08/23/13 09/23/13 C-Bioflavonoids Tab SA] FLUoxetine [PROzac] 40 mg PO DAILY 08/23/13 09/23/13 Gabapentin [Neurontin] 600 mg PO TID 08/23/13 09/23/13 Potassium Gluconate 550 mg PO DAILY 08/23/13 09/23/13 Trazodone HCl 100 mg PO QPM 08/23/13 09/23/13 Vit B12/FA/Pyridoxine HCl/Aa15 2,500 mg PO DAILY 08/23/13 09/23/13 [Glycotrol Capsule] Cyclobenzaprine [Flexeril] 10 mg PO TID PRN #20 tablet 04/25/17 Meloxicam 7.5 mg PO DAILY 04/25/17 Omeprazole [PriLOSEC] 20 mg PO DAILY 04/25/17 Sucralfate [Carafate] 1 gm PO ACHS #60 tablet 07/19/18 - Allergies Allergies/Adverse Reactions: Allergies Allergy/AdvReac Type Severity Reaction Status Date / Time carrot Allergy Anaphylaxis Verified 07/18/18 23:11 celery Allergy Anaphylaxis Verified 07/18/18 23:11 Review of Systems - All Other Systems All Other Systems: reports: Reviewed and negative Prior Level of Functionality: Patient has full functional capacity and adequate home ADLs Exam - Vital Signs Reviewed Vital Signs: Yes Vital Signs: Vital Signs x48h Temp Pulse Resp BP Pulse Ox 08/10/18 21:30 83 13 122/78 100 08/10/18 21:00 84 14 86/66 L 99 08/10/18 20:30 86 11 L 84/53 L 97 08/10/18 20:03 87 16 71/53 L 94 08/10/18 19:38 103 H 16 77/50 L 94 08/10/18 19:04 36.6 C 111 H 16 99/61 99 - Physical Exam General Appearance: positive: No acute distress, Alert Eyes Bilateral: positive: Normal inspection, PERRL, EOMI ENT: positive: Pharynx nml, No signs of dehydration, Other (Deviated septum present with abnormality in nasal bone) Neck: positive: Nml inspection, Thyroid nml, No JVD, Trachea midline Respiratory: positive: Chest non-tender, No respiratory distress, Breath sounds nml Cardiovascular: positive: Regular rate & rhythm, No murmur, No gallop, Irregularly irregular Peripheral Pulses: positive: 2+ Abdomen: positive: Non-tender, No organomegaly, Nml bowel sounds, No distention. negative: Tenderness Back: positive: Nml inspection Skin: positive: Color nml, No rash, Warm Extremities: positive: Non-tender, Full ROM, Nml appearance Neurologic/Psychiatric: positive: Oriented x3, CN's nml (2-12), Motor nml, Sensation nml, Mood/affect nml. negative: Facial droop, Slurred/abnml speech, Depressed mood/affect Reflexes: Bicep (R): 2+, Bicep (L): 2+, Knee (R): 2+, Knee (L): 2+, Ankle (R): 2+, Ankle (L): 2+ Babinski Reflex: Right: Absent, Left: Absent Conclusion/Plan - Problem List (1) Sepsis Conclusion/Plan: Patient with a lactic acid of 3.1 not an alcoholic ketosis, blood cultures and urine cultures drawn, UA shows pyuria with too many to count RBCs. Would continue on IV Rocephin. Patient is not tachycardic but is hypotensive. Would initiate early goal-directed therapy. Surprisingly patient does not appear to be toxic appearing. He does look dehydrated though. LA trending. Qualifiers: Sepsis type: sepsis due to unspecified organism Qualified Code(s): A41.9 - Sepsis, unspecified organism (2) UTI (urinary tract infection) Conclusion/Plan: Patient's UA shows only 6-10 WBCs per high-power field. Small leukocyte esterase with negative nitrite. RBCs too many to count. Patient with lactic acidosis likely as a result of multifactorial cause and not necessarily sepsis. Urine culture to follow, treat empirically with IV Rocephin. Qualifiers: Urinary tract infection type: site unspecified Hematuria presence: with hematuria Qualified Code(s): N39.0 - Urinary tract infection, site not specified; R31.9 - Hematuria, unspecified (3) Acute kidney injury Conclusion/Plan: Likely related to acute dehydration with electrolyte disturbances from patient's alcohol intoxication. Will place on aggressive IV fluid resuscitation. Bannana bag, electrolyte correction, Avoidance of nephrotoxic agents. Daily renal panel. Patient appears hypovolemic with underlying dehydration (4) Metabolic acidosis Conclusion/Plan: Continue with IV fluids, likely secondary to acute kidney injury with underlying effects of alcohol intoxication diuresis. Continue with lactic acid trending. (5) Macrocytic anemia Conclusion/Plan: Patient currently denies hematemesis, melena or hematochezia. Baseline hemoglobin ranges between 10.5-14.0. Continue to monitor. Patient displays macrocytosis, consider b12, FA or iron testing. (6) Fall from ground level Conclusion/Plan: With associated neck, posterior head pain with mild concussion related symptoms, Head CT, facial bones and C-spine negative other than a old broken nose from prior trauma. Supportive care, norco plus flexeril prn. May need PT/OT. (7) Alcohol intoxication Conclusion/Plan: Patient with hx alcohol abuse that appears to be chronic with intoxication and etoh level of [address] on CIWA protocol with IV ativan, IV banana bag, then may switch to PO MVI's, thiamine and FA. Qualifiers: Complication of substance-induced condition: uncomplicated Qualified Code(s): F10.920 - Alcohol use, unspecified with intoxication, uncomplicated (8) Loss of consciousness Conclusion/Plan: Mentions some tremors that were witnessed by GF, seizures? Would provide neurochecks, CIWA protocol, CT head neg. (9) Hypokalemia Conclusion/Plan: Correct K levels, check and correct other lytes, mag and daily renal panel. - Lab Results Lab results reviewed: Yes Fish Bones: 08/10/18 19:26 08/10/18 19:26 - Diagnostic Imaging Results Diagnostic Imaging Results: positive: Final report reviewed - EKG Results EKG Interpreted Independently: No Core Measures - Anticipated LOS I expect patient to be DC'd or transferred within 96 hours.: Yes - Issues Hospital Issues and Management Plan: Patient to be admitted for IV antibiotics, IV fluids, correction of electrolytes, correction of acidemia, blood cultures and urine cultures to follow in the setting of UTI and sepsis, Lactic acidosis with alcohol intoxication - DVT/VTE - Prophylaxis VTE/DVT Device ordered at admit?: Yes VTE/DVT Prophylaxis med ordered at admit?: No Not Ordered - Medical Reason: Not indicated - Stroke - Rehab Assessment Rehab services assessment to be ordered?: No Not Ordered - Medical Reason: Not indicated - AMI - Statin at Admit Aspirin Prescribed on Admit: No Not Ordered - Medical Reason: Not indicated
[2018-08-10] MEDS ORDERED: MULTIVITAMIN 10 ML, THIAMINE INJ 100 MG, FOLIC ACID INJ 1 MG in SODIUM CHLORIDE 0.9% 1,... IV SCH (22:32)
[2018-08-10] MEDS ORDERED: MIDODRINE 2.5 MG TABLET PO PRN (22:32)
[2018-08-10] MEDS ORDERED: traZODone 50 MG TABLET PO SCH (23:41)
[2018-08-10] MEDS: CYCLOBENZAPRINE 10 MG TABLET PO PRN (23:47)
[2018-08-10] MEDS: HYDROcod/ACETAM 5/325 MG TABLET PO PRN (23:47)
[2018-08-10] MEDS ORDERED: THIAMINE 100 MG/1 ML 2 ML MDV ONE (23:58)
[2018-08-11] MEDS ORDERED: THIAMINE 100 MG/1 ML 2 ML MDV ONE (00:08)
[2018-08-11] MEDS: SODIUM CHLORIDE FLUSH 0.9% 10 ML SYRINGE IVP SCH ×3 (00:49→19:13)
[2018-08-11] MEDS: SODIUM CHLORIDE FLUSH 0.9% 10 ML SYRINGE IVP PRN ×2 (00:49→09:37)
[2018-08-11 05:58] LABS: BASOPHILS % (AUTO) 0.7 %; EOSINOPHILS # (AUTO) 0.2 10^3/uL (0.0-0.7); HGB - HEMOGLOBIN 9.7 g/dL (14.0-18.0); LYMPHOCYTES # (AUTO) 1.5 10^3/uL (1.5-3.5); MEAN CORPUSCULAR HEMOGLOBIN 33.1 pg (27.0-31.0); MEAN CORPUSCULAR HGB CONC 31.8 g/dL (32.0-36.0); MEAN CORPUSCULAR VOLUME 104.1 fL (80.0-94.0); MEAN PLATELET VOLUME 11.3 fL (7.4-11.4); MONOCYTES # (AUTO) 0.4 10^3/uL (0.0-1.0); MONOCYTES % (AUTO) 7.8 %; NEUTROPHILS # (AUTO) 3.3 10^3/uL (1.5-6.6); PLT - PLATELET COUNT 110 10^3/uL (130-450); RED BLOOD COUNT 2.93 10^6/uL (4.70-6.10); RED CELL DISTRIBUTION WIDTH 15.2 % (12.0-15.0); WHITE BLOOD COUNT 5.5 x10^3/uL (4.8-10.8)
[2018-08-11 06:00] LABS: CALCIUM 8.5 mg/dL (8.5-10.3); TOTAL PROTEIN 5.8 g/dL (6.7-8.2); URIC ACID 8.4 mg/dL (2.6-7.2)
[2018-08-11 06:04] LABS: INR 0.9 (0.8-1.2); PT - PROTHROMBIN TIME 10.3 secs (9.9-12.6)
[2018-08-11] MEDS: HYDROcod/ACETAM 5/325 MG TABLET PO PRN ×2 (06:16→14:05)
[2018-08-11 06:29] LABS: ALBUMIN 3.2 g/dL (3.2-5.5); ALBUMIN/GLOBULIN RATIO 1.2 (1.0-2.2); BILIRUBIN,TOTAL 0.4 mg/dL (0.2-1.0); CREATININE 1.5 mg/dL (0.6-1.2); MAGNESIUM 1.5 mg/dL (1.7-2.8)
[2018-08-11] MEDS: MAGNESIUM OXIDE 400 MG TABLET PO SCH ×2 (07:55→13:53)
--- NOTE | 2018-08-11 08:05 | PROVIDER PROGRESS NOTE ---
Subjective - Prog Note Date Prog Note Date: 08/11/18 Prog Note Time: 11:00 - Subjective Pt reports feeling: Improved Subjective: He is tired. Feels a little shaky. But no headaches. No blurred vision. No change in mental status. Current Medications - Current Medications Current Medications: Active Medications Hydrocodone Bitart/Acetaminophen ([place] 5/325) 1 tab PO Q4HR PRN PRN Reason: Pain 5 to 7 Last Admin: 08/11/18 06:16 Dose: 1 tab Hydrocodone Bitart/Acetaminophen ([place] 7.5/325) 1 tab PO Q4HR PRN PRN Reason: PAIN >7 Cyclobenzaprine HCl (Flexeril) 10 mg PO TID PRN PRN Reason: Spasms Last Admin: 08/10/18 23:47 Dose: 10 mg Famotidine (Pepcid) 20 mg PO DAILY [facility] Multivitamins 10 ml/ Thiamine HCl 100 mg/ Folic Acid 1 mg/Sodium Chloride 1,011.2 mls @ 100 mls/hr IV DAILY [facility] Last Admin: 08/11/18 00:45 Dose: 100 mls/hr Ceftriaxone Sodium 1 gm/ (Sodium Chloride) 100 mls @ 200 mls/hr IV DAILY [facility] Lorazepam (Ativan Inj (Vial)) 2 mg IVP Q30M PRN; Protocol PRN Reason: CIWA >8 Magnesium Oxide (Mag Ox) 400 mg PO Q6H RENUKA; Protocol Stop: 08/11/18 14:01 Last Admin: 08/11/18 07:55 Dose: 400 mg Midodrine () 10 mg PO TID PRN PRN Reason: SBP<100 Ondansetron HCl (Zofran Odt) 4 mg TL Q6HR PRN PRN Reason: Nausea / Vomiting Polyethylene Glycol (Miralax) 17 gm PO DAILY [facility] Sodium Chloride (Normal Saline Flush 0.9%) 10 ml IVP PRN PRN PRN Reason: NEEDED PER PROVIDER ORDERS Last Admin: 08/11/18 00:49 Dose: 10 ml Sodium Chloride (Normal Saline Flush 0.9%) 10 ml IVP 0100,0900,1700 [facility] Last Admin: 08/11/18 00:49 Dose: 10 ml Trazodone HCl (Desyrel) 100 mg PO QPM [facility] Last Admin: 08/11/18 00:31 Dose: 100 mg Ascorbic Acid/Bioflavonoids [Vit C-Bioflavonoids Tab SA] 1,000 mg PO DAILY 08/23/13 FLUoxetine [PROzac] 40 mg PO DAILY 08/23/13 Gabapentin [Neurontin] 600 mg PO TID 08/23/13 Potassium Gluconate 550 mg PO DAILY 08/23/13 Trazodone HCl 100 mg PO QPM 08/23/13 Vit B12/FA/Pyridoxine HCl/Aa15 [Glycotrol Capsule] 2,500 mg PO DAILY 08/23/13 Meloxicam 7.5 mg PO DAILY 04/25/17 Omeprazole [PriLOSEC] 20 mg PO DAILY 04/25/17 Objective - Vital Signs/Intake & Output Vital Signs: Vital Signs x48h Temp Pulse Pulse Pulse Pulse Resp BP 08/11/18 08:00 85 20 139/95 H 08/11/18 07:52 36.5 C 86 18 139/95 H 08/11/18 07:00 75 15 113/81 H 08/11/18 06:00 97 18 118/78 08/11/18 05:00 36.9 C 95 14 107/71 08/11/18 04:00 80 20 103/66 08/11/18 03:00 86 17 96/64 08/11/18 02:00 87 16 102/70 08/11/18 01:00 36.8 C 88 19 112/70 08/11/18 00:21 74 95 77 BP BP BP Pulse Ox 08/11/18 08:00 95 08/11/18 07:52 95 08/11/18 07:00 92 08/11/18 06:00 92 08/11/18 05:00 97 08/11/18 04:00 93 08/11/18 03:00 93 08/11/18 02:00 91 L 08/11/18 01:00 94 08/11/18 00:21 114/81 H 110/81 H 108/76 Intake & Output: Intake & Output 08/08/18 08/09/18 08/10/18 08/11/18 23:59 23:59 23:59 23:59 Intake Total 2251 850 Output Total 225 Balance 2251 625 - Objective General Appearance: positive: No acute distress, Alert Eyes Bilateral: positive: PERRL ENT: positive: Pharynx nml Neck: positive: No JVD Respiratory: positive: Chest non-tender. negative: Wheezes, Rales, Rhonchi Cardiovascular: positive: Regular rate & rhythm. negative: Tachycardia, Gallop/S4, Friction rub Abdomen: positive: Non-tender, No organomegaly, Nml bowel sounds, No distention Skin: positive: Warm, Dry Extremities: positive: Non-tender, No pedal edema Neurologic/Psychiatric: positive: Oriented x3, CN's nml (2-12), Motor nml - Lab Results Fish Bones: 08/11/18 05:35 08/11/18 05:35 Other Labs: Lab Results x24hrs 08/11/18 08/11/18 08/11/18 Range/Units 05:35 05:35 05:35 WBC 5.5 (4.8-10.8) x10^3/uL RBC 2.93 L (4.70-6.10) 10^6/uL Hgb 9.7 L (14.0-18.0) g/dL Hct 30.5 L (42.0-52.0) % MCV 104.1 H (80.0-94.0) fL MCH 33.1 H (27.0-31.0) pg MCHC 31.8 L (32.0-36.0) g/dL RDW 15.2 H (12.0-15.0) % Plt Count 110 L (130-450) 10^3/uL MPV 11.3 (7.4-11.4) fL Neut # (Auto) 3.3 (1.5-6.6) 10^3/uL Lymph # (Auto) 1.5 (1.5-3.5) 10^3/uL [place] # (Auto) 0.4 (0.0-1.0) 10^3/uL Eos # (Auto) 0.2 (0.0-0.7) 10^3/uL Baso # (Auto) 0.0 (0.0-0.1) 10^3/uL Absolute Nucleated RBC 0.00 x10^3/uL Nucleated RBC % 0.0 /100WBC PT (9.9-12.6) secs INR (0.8-1.2) VBG pH (7.31-7.41) VBG pCO2 (41-51) mmHg VBG pO2 (25-47) mmHg VBG HCO3 (23-28) mmol/L VBG Total CO2 (24-29) mmol/L VBG O2 Saturation (60-80) % VBG Base Excess (-2 - +2) mmol/L Sodium 137 (135-145) mmol/L Potassium 3.5 (3.5-5.0) mmol/L Chloride 108 (101-111) mmol/L Carbon Dioxide 19 L (21-32) mmol/L Anion Gap 10.0 (6-13) BUN 22 H (6-20) mg/dL Creatinine 1.5 H (0.6-1.2) mg/dL Estimated GFR (MDRD) 49 L (>89) Glucose 102 H (70-100) mg/dL Lactic Acid 0.9 (0.5-2.2) mmol/L Uric Acid 8.4 H (2.6-7.2) mg/dL Calcium 8.5 (8.5-10.3) mg/dL Magnesium 1.5 L (1.7-2.8) mg/dL Total Bilirubin 0.4 (0.2-1.0) mg/dL AST 45 H (10-42) IU/L ALT 30 (10-60) IU/L Alkaline Phosphatase 64 (42-121) IU/L Total Protein 5.8 L (6.7-8.2) g/dL Albumin 3.2 (3.2-5.5) g/dL Globulin 2.6 (2.1-4.2) g/dL Albumin/Globulin Ratio 1.2 (1.0-2.2) Lipase (22-51) U/L Urine Color Urine Clarity (CLEAR) Urine pH (5.0-7.5) PH Ur Specific [place] (1.002-1.030) Urine Protein (NEGATIVE) mg/dL Urine Glucose (UA) (NEGATIVE) mg/dL Urine Ketones (NEGATIVE) mg/dL Urine Occult Blood (NEGATIVE) Urine Nitrite (NEGATIVE) Urine Bilirubin (NEGATIVE) Urine Urobilinogen (NORMAL) E.U./dL Ur Leukocyte Esterase (NEGATIVE) Urine RBC (0-5) /HPF Urine WBC (0-3) /HPF Ur Squamous Epith Cells (<= Few) Urine Bacteria (None Seen) /HPF Ur Microscopic Review Urine Culture Comments Nasal Screen MRSA (PCR) (NEGATIVE) Urine Opiates Screen (NEGATIVE) Ur Oxycodone Screen (NEGATIVE) Urine Methadone Screen (NEGATIVE) Ur Propoxyphene Screen (NEGATIVE) Ur Barbiturates Screen (NEGATIVE) Ur Tricyclics Screen (NEGATIVE) Ur Phencyclidine Scrn (NEGATIVE) Ur Amphetamine Screen (NEGATIVE) U Methamphetamines Scrn (NEGATIVE) U Benzodiazepines Scrn (NEGATIVE) Urine Cocaine Screen (NEGATIVE) U Cannabinoids Screen (NEGATIVE) Ethyl Alcohol mg/dL Serum Ketones (NEGATIVE) 08/11/18 08/11/18 08/11/18 Range/Units 05:35 03:00 00:40 WBC (4.8-10.8) x10^3/uL RBC (4.70-6.10) 10^6/uL Hgb (14.0-18.0) g/dL Hct (42.0-52.0) % MCV (80.0-94.0) fL MCH (27.0-31.0) pg MCHC (32.0-36.0) g/dL RDW (12.0-15.0) % Plt Count (130-450) 10^3/uL MPV (7.4-11.4) fL Neut # (Auto) (1.5-6.6) 10^3/uL Lymph # (Auto) (1.5-3.5) 10^3/uL [place] # (Auto) (0.0-1.0) 10^3/uL Eos # (Auto) (0.0-0.7) 10^3/uL Baso # (Auto) (0.0-0.1) 10^3/uL Absolute Nucleated RBC x10^3/uL Nucleated RBC % /100WBC PT 10.3 (9.9-12.6) secs INR 0.9 (0.8-1.2) VBG pH (7.31-7.41) VBG pCO2 (41-51) mmHg VBG pO2 (25-47) mmHg VBG HCO3 (23-28) mmol/L VBG Total CO2 (24-29) mmol/L VBG O2 Saturation (60-80) % VBG Base Excess (-2 - +2) mmol/L Sodium (135-145) mmol/L Potassium (3.5-5.0) mmol/L Chloride (101-111) mmol/L Carbon Dioxide (21-32) mmol/L Anion Gap (6-13) BUN (6-20) mg/dL Creatinine (0.6-1.2) mg/dL Estimated GFR (MDRD) (>89) Glucose (70-100) mg/dL Lactic Acid 1.6 (0.5-2.2) mmol/L Uric Acid (2.6-7.2) mg/dL Calcium (8.5-10.3) mg/dL Magnesium (1.7-2.8) mg/dL Total Bilirubin (0.2-1.0) mg/dL AST (10-42) IU/L ALT (10-60) IU/L Alkaline Phosphatase (42-121) IU/L Total Protein (6.7-8.2) g/dL Albumin (3.2-5.5) g/dL Globulin (2.1-4.2) g/dL Albumin/Globulin Ratio (1.0-2.2) Lipase (22-51) U/L Urine Color Urine Clarity (CLEAR) Urine pH (5.0-7.5) PH Ur Specific [place] (1.002-1.030) Urine Protein (NEGATIVE) mg/dL Urine Glucose (UA) (NEGATIVE) mg/dL Urine Ketones (NEGATIVE) mg/dL Urine Occult Blood (NEGATIVE) Urine Nitrite (NEGATIVE) Urine Bilirubin (NEGATIVE) Urine Urobilinogen (NORMAL) E.U./dL Ur Leukocyte Esterase (NEGATIVE) Urine RBC (0-5) /HPF Urine WBC (0-3) /HPF Ur Squamous Epith Cells (<= Few) Urine Bacteria (None Seen) /HPF Ur Microscopic Review Urine Culture Comments Nasal Screen MRSA (PCR) NEGATIVE (NEGATIVE) Urine Opiates Screen (NEGATIVE) Ur Oxycodone Screen (NEGATIVE) Urine Methadone Screen (NEGATIVE) Ur Propoxyphene Screen (NEGATIVE) Ur Barbiturates Screen (NEGATIVE) Ur Tricyclics Screen (NEGATIVE) Ur Phencyclidine Scrn (NEGATIVE) Ur Amphetamine Screen (NEGATIVE) U Methamphetamines Scrn (NEGATIVE) U Benzodiazepines Scrn (NEGATIVE) Urine Cocaine Screen (NEGATIVE) U Cannabinoids Screen (NEGATIVE) Ethyl Alcohol mg/dL Serum Ketones (NEGATIVE) 08/10/18 08/10/18 08/10/18 Range/Units 20:08 20:08 20:08 WBC (4.8-10.8) x10^3/uL RBC (4.70-6.10) 10^6/uL Hgb (14.0-18.0) g/dL Hct (42.0-52.0) % MCV (80.0-94.0) fL MCH (27.0-31.0) pg MCHC (32.0-36.0) g/dL RDW (12.0-15.0) % Plt Count (130-450) 10^3/uL MPV (7.4-11.4) fL Neut # (Auto) (1.5-6.6) 10^3/uL Lymph # (Auto) (1.5-3.5) 10^3/uL [place] # (Auto) (0.0-1.0) 10^3/uL Eos # (Auto) (0.0-0.7) 10^3/uL Baso # (Auto) (0.0-0.1) 10^3/uL Absolute Nucleated RBC x10^3/uL Nucleated RBC % /100WBC PT (9.9-12.6) secs INR (0.8-1.2) VBG pH 7.342 (7.31-7.41) VBG pCO2 33.1 L (41-51) mmHg VBG pO2 30.6 (25-47) mmHg VBG HCO3 17.5 L (23-28) mmol/L VBG Total CO2 18.6 L (24-29) mmol/L VBG O2 Saturation 55.1 L (60-80) % VBG Base Excess -7.2 L (-2 - +2) mmol/L Sodium (135-145) mmol/L Potassium (3.5-5.0) mmol/L Chloride (101-111) mmol/L Carbon Dioxide (21-32) mmol/L Anion Gap (6-13) BUN (6-20) mg/dL Creatinine (0.6-1.2) mg/dL Estimated GFR (MDRD) (>89) Glucose (70-100) mg/dL Lactic Acid 3.1 H* (0.5-2.2) mmol/L Uric Acid (2.6-7.2) mg/dL Calcium (8.5-10.3) mg/dL Magnesium 1.7 (1.7-2.8) mg/dL Total Bilirubin (0.2-1.0) mg/dL AST (10-42) IU/L ALT (10-60) IU/L Alkaline Phosphatase (42-121) IU/L Total Protein (6.7-8.2) g/dL Albumin (3.2-5.5) g/dL Globulin (2.1-4.2) g/dL Albumin/Globulin Ratio (1.0-2.2) Lipase (22-51) U/L Urine Color Urine Clarity (CLEAR) Urine pH (5.0-7.5) PH Ur Specific [place] (1.002-1.030) Urine Protein (NEGATIVE) mg/dL Urine Glucose (UA) (NEGATIVE) mg/dL Urine Ketones (NEGATIVE) mg/dL Urine Occult Blood (NEGATIVE) Urine Nitrite (NEGATIVE) Urine Bilirubin (NEGATIVE) Urine Urobilinogen (NORMAL) E.U./dL Ur Leukocyte Esterase (NEGATIVE) Urine RBC (0-5) /HPF Urine WBC (0-3) /HPF Ur Squamous Epith Cells (<= Few) Urine Bacteria (None Seen) /HPF Ur Microscopic Review Urine Culture Comments Nasal Screen MRSA (PCR) (NEGATIVE) Urine Opiates Screen (NEGATIVE) Ur Oxycodone Screen (NEGATIVE) Urine Methadone Screen (NEGATIVE) Ur Propoxyphene Screen (NEGATIVE) Ur Barbiturates Screen (NEGATIVE) Ur Tricyclics Screen (NEGATIVE) Ur Phencyclidine Scrn (NEGATIVE) Ur Amphetamine Screen (NEGATIVE) U Methamphetamines Scrn (NEGATIVE) U Benzodiazepines Scrn (NEGATIVE) Urine Cocaine Screen (NEGATIVE) U Cannabinoids Screen (NEGATIVE) Ethyl Alcohol mg/dL Serum Ketones NEGATIVE (NEGATIVE) 08/10/18 08/10/18 08/10/18 Range/Units 19:26 19:26 19:26 WBC 7.8 (4.8-10.8) x10^3/uL RBC 3.45 L (4.70-6.10) 10^6/uL Hgb 11.7 L (14.0-18.0) g/dL Hct 35.4 L (42.0-52.0) % MCV 102.6 H (80.0-94.0) fL MCH 33.9 H (27.0-31.0) pg MCHC 33.1 (32.0-36.0) g/dL RDW 15.0 (12.0-15.0) % Plt Count 141 (130-450) 10^3/uL MPV 11.1 (7.4-11.4) fL Neut # (Auto) 5.0 (1.5-6.6) 10^3/uL Lymph # (Auto) 1.8 (1.5-3.5) 10^3/uL [place] # (Auto) 0.8 (0.0-1.0) 10^3/uL Eos # (Auto) 0.2 (0.0-0.7) 10^3/uL Baso # (Auto) 0.0 (0.0-0.1) 10^3/uL Absolute Nucleated RBC 0.00 x10^3/uL Nucleated RBC % 0.0 /100WBC PT 10.1 (9.9-12.6) secs INR 0.9 (0.8-1.2) VBG pH (7.31-7.41) VBG pCO2 (41-51) mmHg VBG pO2 (25-47) mmHg VBG HCO3 (23-28) mmol/L VBG Total CO2 (24-29) mmol/L VBG O2 Saturation (60-80) % VBG Base Excess (-2 - +2) mmol/L Sodium 139 (135-145) mmol/L Potassium 3.1 L (3.5-5.0) mmol/L Chloride 103 (101-111) mmol/L Carbon Dioxide 19 L (21-32) mmol/L Anion Gap 17.0 H (6-13) BUN 32 H (6-20) mg/dL Creatinine 3.2 H (0.6-1.2) mg/dL Estimated GFR (MDRD) 20 L (>89) Glucose 102 H (70-100) mg/dL Lactic Acid (0.5-2.2) mmol/L Uric Acid (2.6-7.2) mg/dL Calcium 9.3 (8.5-10.3) mg/dL Magnesium (1.7-2.8) mg/dL Total Bilirubin 0.5 (0.2-1.0) mg/dL AST 68 H (10-42) IU/L ALT 38 (10-60) IU/L Alkaline Phosphatase 79 (42-121) IU/L Total Protein 7.2 (6.7-8.2) g/dL Albumin 4.2 (3.2-5.5) g/dL Globulin 3.0 (2.1-4.2) g/dL Albumin/Globulin Ratio 1.4 (1.0-2.2) Lipase 56 H (22-51) U/L Urine Color Urine Clarity (CLEAR) Urine pH (5.0-7.5) PH Ur Specific [place] (1.002-1.030) Urine Protein (NEGATIVE) mg/dL Urine Glucose (UA) (NEGATIVE) mg/dL Urine Ketones (NEGATIVE) mg/dL Urine Occult Blood (NEGATIVE) Urine Nitrite (NEGATIVE) Urine Bilirubin (NEGATIVE) Urine Urobilinogen (NORMAL) E.U./dL Ur Leukocyte Esterase (NEGATIVE) Urine RBC (0-5) /HPF Urine WBC (0-3) /HPF Ur Squamous Epith Cells (<= Few) Urine Bacteria (None Seen) /HPF Ur Microscopic Review Urine Culture Comments Nasal Screen MRSA (PCR) (NEGATIVE) Urine Opiates Screen (NEGATIVE) Ur Oxycodone Screen (NEGATIVE) Urine Methadone Screen (NEGATIVE) Ur Propoxyphene Screen (NEGATIVE) Ur Barbiturates Screen (NEGATIVE) Ur Tricyclics Screen (NEGATIVE) Ur Phencyclidine Scrn (NEGATIVE) Ur Amphetamine Screen (NEGATIVE) U Methamphetamines Scrn (NEGATIVE) U Benzodiazepines Scrn (NEGATIVE) Urine Cocaine Screen (NEGATIVE) U Cannabinoids Screen (NEGATIVE) Ethyl Alcohol 238.9 mg/dL Serum Ketones (NEGATIVE) 08/10/18 08/10/18 Range/Units 19:20 19:20 WBC (4.8-10.8) x10^3/uL RBC (4.70-6.10) 10^6/uL Hgb (14.0-18.0) g/dL Hct (42.0-52.0) % MCV (80.0-94.0) fL MCH (27.0-31.0) pg MCHC (32.0-36.0) g/dL RDW (12.0-15.0) % Plt Count (130-450) 10^3/uL MPV (7.4-11.4) fL Neut # (Auto) (1.5-6.6) 10^3/uL Lymph # (Auto) (1.5-3.5) 10^3/uL [place] # (Auto) (0.0-1.0) 10^3/uL Eos # (Auto) (0.0-0.7) 10^3/uL Baso # (Auto) (0.0-0.1) 10^3/uL Absolute Nucleated RBC x10^3/uL Nucleated RBC % /100WBC PT (9.9-12.6) secs INR (0.8-1.2) VBG pH (7.31-7.41) VBG pCO2 (41-51) mmHg VBG pO2 (25-47) mmHg VBG HCO3 (23-28) mmol/L VBG Total CO2 (24-29) mmol/L VBG O2 Saturation (60-80) % VBG Base Excess (-2 - +2) mmol/L Sodium (135-145) mmol/L Potassium (3.5-5.0) mmol/L Chloride (101-111) mmol/L Carbon Dioxide (21-32) mmol/L Anion Gap (6-13) BUN (6-20) mg/dL Creatinine (0.6-1.2) mg/dL Estimated GFR (MDRD) (>89) Glucose (70-100) mg/dL Lactic Acid (0.5-2.2) mmol/L Uric Acid (2.6-7.2) mg/dL Calcium (8.5-10.3) mg/dL Magnesium (1.7-2.8) mg/dL Total Bilirubin (0.2-1.0) mg/dL AST (10-42) IU/L ALT (10-60) IU/L Alkaline Phosphatase (42-121) IU/L Total Protein (6.7-8.2) g/dL Albumin (3.2-5.5) g/dL Globulin (2.1-4.2) g/dL Albumin/Globulin Ratio (1.0-2.2) Lipase (22-51) U/L Urine Color DARK YELLOW Urine Clarity CLOUDY (CLEAR) Urine pH 5.0 (5.0-7.5) PH Ur Specific [place] >=1.030 H (1.002-1.030) Urine Protein 100 H (NEGATIVE) mg/dL Urine Glucose (UA) NEGATIVE (NEGATIVE) mg/dL Urine Ketones TRACE (NEGATIVE) mg/dL Urine Occult Blood LARGE H (NEGATIVE) Urine Nitrite NEGATIVE (NEGATIVE) Urine Bilirubin MODERATE H (NEGATIVE) Urine Urobilinogen 1 (NORMAL) (NORMAL) E.U./dL Ur Leukocyte Esterase SMALL H (NEGATIVE) Urine RBC TNTC H (0-5) /HPF Urine WBC 6-10 H (0-3) /HPF Ur Squamous Epith Cells FEW Squamous (<= Few) Urine Bacteria Few (None Seen) /HPF Ur Microscopic Review INDICATED Urine Culture Comments INDICATED Nasal Screen MRSA (PCR) (NEGATIVE) Urine Opiates Screen NEGATIVE (NEGATIVE) Ur Oxycodone Screen NEGATIVE (NEGATIVE) Urine Methadone Screen NEGATIVE (NEGATIVE) Ur Propoxyphene Screen NEGATIVE (NEGATIVE) Ur Barbiturates Screen NEGATIVE (NEGATIVE) Ur Tricyclics Screen NEGATIVE (NEGATIVE) Ur Phencyclidine Scrn POSITIVE H (NEGATIVE) Ur Amphetamine Screen NEGATIVE (NEGATIVE) U Methamphetamines Scrn NEGATIVE (NEGATIVE) U Benzodiazepines Scrn NEGATIVE (NEGATIVE) Urine Cocaine Screen NEGATIVE (NEGATIVE) U Cannabinoids Screen NEGATIVE (NEGATIVE) Ethyl Alcohol mg/dL Serum Ketones (NEGATIVE) ABX Reporting Has patient been on IV antibiotics over the past 48 hours?: Yes Assessment/Plan - Problem List (1) Sepsis Impression: He meets criteria with a lactic acid of 3.1 (not an alcoholic ketosis), hypotension, and a probable source with his UTI. But he may have simple severe dehydration and liver disease causing this as well. Blood cultures and urine cultures drawn, UA shows pyuria with too many to count RBCs. Would continue on IV Rocephin. Today is Day #2. Early goal-directed therapy was inititated. Surprisingly patient did not appear to be toxic appearing. He does look dehydrated though. Followup lactic acids are now normal. Plan: Continue abx but change to quinolone (male sex) untiil urine culture declares itself then change abx to po Since I am change to levaquin and interacts w meds for prolonged QT, check EKG Qualifiers: Sepsis type: sepsis due to unspecified organism Qualified Code(s): A41.9 - Sepsis, unspecified organism (2) UTI (urinary tract infection) Conclusion/Plan: Patient's UA shows only 6-10 WBCs per high-power field. Small leukocyte esterase with negative nitrite. RBCs too many to count. Patient with lactic acidosis likely as a result of multifactorial cause and not necessarily sepsis. Urine culture to follow, treat empirically with IV quinolone Qualifiers: Urinary tract infection type: site unspecified Hematuria presence: with hematuria Qualified Code(s): N39.0 - Urinary tract infection, site not specified; R31.9 - Hematuria, unspecified (3) Acute kidney injury, improving Conclusion/Plan: Likely related to acute dehydration with electrolyte disturbances from patient's alcohol intoxication. Will place on aggressive IV fluid resuscitation. Bannana bag, electrolyte correction, Avoidance of nephrotoxic agents. Daily renal panel. Patient appears hypovolemic with underlying dehydration. After less than 24 hours much improved with Creatinine 3.2>1.5 (4) Metabolic acidosis, resolved Conclusion/Plan: Continue with IV fluids, likely secondary to acute kidney injury with underlying effects of alcohol intoxication diuresis. Continue with lactic acid trending. (5) Macrocytic anemia in a patient with alcohol abuse Conclusion/Plan: Patient currently denies hematemesis, melena or hematochezia. Baseline hemoglobin ranges between 10.5-14.0. Continue to monitor. Patient displays macrocytosis, will do anemia panel for am tomorrow since today's labs already done. (6) Fall from ground level Conclusion/Plan: With associated neck, posterior head pain with mild concussion related symptoms, Head CT, facial bones and C-spine negative other than a old broken nose from prior trauma. Supportive care, norco plus flexeril prn. May need PT/OT. (7) Alcohol intoxication Conclusion/Plan: Patient with hx alcohol abuse that appears to be chronic with intoxication and etoh level of [address] on CIWA protocol with IV ativan, IV banana bag, then may switch to PO MVI's, thiamine and FA. Qualifiers: Complication of substance-induced condition: uncomplicated Qualified Code(s): F10.920 - Alcohol use, unspecified with intoxication, uncomplicated (8) Loss of consciousness Conclusion/Plan: Mentions some tremors that were witnessed by GF, seizures? Would provide neurochecks, CIWA protocol, CT head neg. (9) Hypokalemia Conclusion/Plan: Correct K levels, check and correct other lytes, mag and daily renal panel. Qualifiers: Qualified Code(s): A41.9 - Sepsis, unspecified organism
[2018-08-11] MEDS ORDERED: POLYETHYLENE GLYCOL 3350 17 GM PACKET PO SCH (09:00)
[2018-08-11] MEDS ORDERED: MULTIVITAMIN 10 ML, THIAMINE INJ 100 MG, FOLIC ACID INJ 1 MG in SODIUM CHLORIDE 0.9% 1,... IV SCH (09:00)
[2018-08-11] MEDS: cefTRIAXone 1 GM in SODIUM CHLORIDE 0.9% MINIBAG 100 ML IV SCH (09:06)
[2018-08-11] MEDS: FAMOTIDINE 20 MG TABLET PO SCH (09:06)
[2018-08-11] MEDS: levoFLOXacin 500 MG/100 ML 500 MG/100 ML BAG IV SCH (09:32)
[2018-08-11] MEDS: CYCLOBENZAPRINE 10 MG TABLET PO PRN (14:06)
[2018-08-11] MEDS ORDERED: traZODone 50 MG TABLET PO SCH (21:00)
[2018-08-11] MEDS ORDERED: GABAPENTIN 300 MG CAPSULE PO SCH (21:00)
[2018-08-11] MEDS: HYDROcod/ACETAM 7.5 MG/325 MG TABLET PO PRN (21:15)
[2018-08-12] MEDS: SODIUM CHLORIDE FLUSH 0.9% 10 ML SYRINGE IVP SCH ×2 (06:06→09:27)
[2018-08-12 08:17] LABS: ABSOLUTE RETICS # AUTO 0.053 10^6/uL (0.020-0.110); RED BLOOD COUNT 3.03 10^6/uL (4.70-6.10)
[2018-08-12] MEDS: CYCLOBENZAPRINE 10 MG TABLET PO PRN (08:23)
[2018-08-12] MEDS: HYDROcod/ACETAM 7.5 MG/325 MG TABLET PO PRN (08:23)
[2018-08-12] MEDS: FAMOTIDINE 20 MG TABLET PO SCH (08:24)
[2018-08-12 08:30] VITALS: BP 146/100
[2018-08-12 08:56] LABS: FERRITIN 224.4 ng/mL (23.9-336.2)
[2018-08-12] MEDS ORDERED: LISINOPRIL 20 MG TABLET PO SCH (09:00)
[2018-08-12] MEDS ORDERED: MULTIVITAMIN 10 ML, THIAMINE INJ 100 MG, FOLIC ACID INJ 1 MG in SODIUM CHLORIDE 0.9% 1,... IV SCH (09:00)
[2018-08-12] MEDS ORDERED: FLUoxetine 10 MG CAPSULE PO SCH (09:00)
[2018-08-12] MEDS: cefTRIAXone 1 GM in SODIUM CHLORIDE 0.9% MINIBAG 100 ML IV SCH (09:26)
[2018-08-12] MEDS: levoFLOXacin 500 MG/100 ML 500 MG/100 ML BAG IV SCH (09:59)
[2018-08-12 10:06] LABS: % IRON SATURATION 37 % (20-50); IRON 92 ug/dL (45-182); TOTAL IRON BINDING CAPACITY 251 ug/dL (250-450); TRANSFERRIN 179 mg/dL (180-329)
--- NOTE | 2018-08-12 11:23 | Discharge Plan ---
Discharge Plan Problem Reviewed?: Yes Disposition: Home, Self Care Condition: Stable Prescriptions: Levofloxacin [Levaquin] 500 mg PO DAILY #14 tablet Diet: Regular Activity Restrictions: Additional Comments (Absolutely no alcohol intake) Shower Restrictions: No Driving Restrictions: Yes (Do not drink and drive) Instruction Topics: Alcoholism Get Help Health Concerns: Generalized weakness and fatigue that was from dehydration, liver failure from alcohol abuse, and early alcohol withdrawal. Also identified as having an abnormal urinalysis with possible urinary tract infection. Cultures are negative. Plan of Treatment: You were able to be successfully treated for your low blood pressure with IV fluids, vitamin B12 vitamins and folate vitamins, and antibiotics. We also treated you for early alcohol withdrawal with occasional tranquilizers and you did well. Care Goals: Finish antibiotics. Make sure you take all 2 weeks worth. In gentleman it is difficult to treat urinary tract infections and you have to finish the antibiotics. Please refrain from any alcohol use whatsoever. Make sure you see [facility] in follow-up for your alcohol abuse history. Assessment: You have expressed the understanding of no more alcohol use. You plan to follow through with [facility] and have declined going to Alcoholics Anonymous. Please see your primary care provider and follow-up in the next 1 to 2 weeks. No Smoking: If you smoke, Please STOP! Call for help. Follow-up with: Melanie Cage ARNP [Primary Care Provider] -
--- NOTE | 2018-08-16 03:19 | DISCHARGE SUMMARY ---
Physician: Evon Singh MD DATE OF ADMISSION: 08/10/2018 DATE OF DISCHARGE: 08/12/2018 DISCHARGE DIAGNOSES 1. Sepsis criteria met. 2. Dehydration, acute. 3. Urinary tract infection as a source of infection. 4. Acute kidney injury. 5. Metabolic acidosis. 6. Macrocytic anemia. 7. Alcohol abuse with intoxication. 8. Fall on level ground. 9. Episode of loss of consciousness. 10. Hypokalemia. DISCHARGE MEDICATIONS 1. Bioflavonoid capsules 1000 mg daily. 2. Prozac 20 mg daily. 3. Gabapentin 300 mg at bedtime. 4. Lisinopril 10 mg daily. 5. Meloxicam 7.5 mg daily. 6. Prilosec 20 mg daily. 7. Trazodone 100 mg daily. 8. Vitamin B12 with pyridoxine 2500 mg daily. 9. Levaquin 500 mg tablets daily for #14. PRINCIPAL PROCEDURES 1. Urine culture without any aerobic growth at 24 hours. 2. Blood cultures negative after [address]erv[address] spine CT, facial bone CT, and head CT do not show any acute fractures after a fall. Unr emarkable multilevel degenerative disk changes of the C-spine, advanced emphysema noted at both lung apices. HOSPITAL COURSE: This is a 53-year-old gentleman who has a history of alcoholism. He also has chron ic back pain. He usually drinks beer and whiskey and, for some unknown rationale, decided to switch to vodka in the last week. He has been binge drinking on a daily basis for over a week. On the h t of admission, he got out of the car and slipped on his loose shoes as he tried to get out of the ca r, and fell backwards, hitting his head on the pavement with loss of consciousness. He had a persist ent headache, and had neck pain and jaw pain, and difficulty chewing because of it. He came to the e mergency room, where he was found to have acute alcohol intoxication, elevated lactic acid, acute kid kasia injury with a creatinine of 3.2, and all of the above x-rays were done and negative. Urinalysis had abnormal urinary constituents, and eventually ended up having no growth. He met the criteria for sepsis on the basis of his hypotension, lactic acid, and a possible source of the UTI, but we also felt that he may have simple severe dehydration in the face of acute alcohol ab use that was quite severe with probable chronic liver disease. He was treated with IV Rocephin initi ally and then switched over to Levaquin. We felt that it would be better to just continue treating h im for his possible UTI. With hydration and antibiotics, his sepsis criteria resolved, his dehydrati on and acute kidney injury also resolved. He came in at 3.2 and at discharge his creatinine was 1.5. His usual baseline is down to 0.8 in 2013, and he has crept up to 1.1 by 2016. We did iron studies because of anemia and his iron is 92, TIBC 251, percent saturation 37, transferri n 179. Ferritin is 224. Vitamin B12 333. Hemoglobin is 9.7, with an MCV of 104. He is not having hemolysis. His metabolic acidosis slowly resolved. Again, we really started leaning more toward alcohol abuse a nd dehydration as the cause of his acidosis, and not true sepsis. Patient was offered counseling and alcohol cessation advice. He received the names of many facilities from Social Work, but the patien t declined Alcoholics Anonymous. Hypokalemia that was present during admission was supplemented. He also received thiamine and folate. He did not go through withdrawal. He had some mild shakiness, but then did not require true CIWA pro tocol. He was discharged in stable condition and asked to refrain from ever drinking again, and seek counseling for alcohol abuse. PHYSICAL EXAMINATION VITAL SIGNS: Orthostatics on the day of discharge showed a supine blood pressure of 154/84, sitting blood pressure of 156/92, standing blood pressure 135/95. He was 36.6 temperature, respirations 18, 95% on room air. GENERAL: He is an alert, oriented, white male, at 6 feet 1 inch tall and 72 kg. NECK: Supple with shotty adenopathy. LUNGS: Clear to auscultation and percussion. No crackles, rhonchi, or wheezing, and he did not have any increased respiratory effort. He was at times bradycardic on his heart rate, but was also in th e 90s on the day of discharge. ABDOMEN: Soft, nontender. Normal bowel sounds. His main complaint was a 4/10 back pain that made h im stiff and achy, but he said it was present all of his life. He was oriented to person, place and time. No edema present in his legs. He was discharged in stable condition with instructions to see his primary care provider, Melanie pope. Greater than 30 minutes was spent coordinating discharge. cc: STEPHANIE Daniel TD: 08/15/2018 20:10
== END 2018-08-12 14:15 | disposition home or self-care (01) | DRG 872 ==
LOC: ED 18:56 → ICU 21:47
PROVIDERS: ADMIT Family Medicine; ATTEND Specialist
DX: A41.9 Sepsis, unspecified organism (principal); N39.0 Urinary tract infection, site not specified; N17.9 Acute kidney failure, unspecified; S06.0X9A Concussion with loss of consciousness of unspecified duration, initial encounter; E87.2 Acidosis; F10.239 Alcohol dependence with withdrawal, unspecified; F10.229 Alcohol dependence with intoxication, unspecified; Y90.7 Blood alcohol level of 200-239 mg/100 ml; K70.9 Alcoholic liver disease, unspecified; E86.0 Dehydration; E87.6 Hypokalemia; D53.9 Nutritional anemia, unspecified; R51 Headache; R68.84 Jaw pain; W18.30XA Fall on same level, unspecified, initial encounter; R74.0 Nonspecific elevation of levels of transaminase and lactic acid dehydrogenase [LDH]; R31.9 Hematuria, unspecified; J43.9 Emphysema, unspecified; M50.30 Other cervical disc degeneration, unspecified cervical region; G89.29 Other chronic pain; M54.9 Dorsalgia, unspecified; F32.9 Major depressive disorder, single episode, unspecified; F17.200 Nicotine dependence, unspecified, uncomplicated; M95.0 Acquired deformity of nose; I25.2 Old myocardial infarction
CPT/HCPCS: 36415; 70450; 70486; 72125; 80053; 80306; 80320; 81001; 82009; 82607; 82728; 82803; 83540; 83605; 83615; 83690; 83735; 84466; 84550; 85025; 85044; 85610; 87040; 87086; 87150; 93005; 96365; 96368; 96375; 99284; A9270; J3411; J7040; J7120; 81003

== ENCOUNTER 2018-08-26 23:56 | Outpatient (CLI) | payer MEDICAID | END 2018-08-26 23:57 | disposition critical access hospital (66) | LOC: EMS 23:56 | PROVIDERS: ATTEND Surgery | DX: R56.9 Unspecified convulsions (principal); R07.89 Other chest pain; R19.5 Other fecal abnormalities; R53.1 Weakness | CPT/HCPCS: A0425; A0427; A0999 ==

== ENCOUNTER 2018-08-27 00:09 | Observation (INO) | payer MEDICAID ==
[2018-08-27] MEDS ORDERED: SODIUM CHLORIDE 0.9% 1,000 ML IV ONE ×2 (00:19→02:55)
[2018-08-27 00:45] LABS: BASOPHILS % (AUTO) 0.7 %; EOSINOPHILS # (AUTO) 0.1 10^3/uL (0.0-0.7); EOSINOPHILS % (AUTO) 2.7 %; HGB - HEMOGLOBIN 10.1 g/dL (14.0-18.0); LYMPHOCYTES # (AUTO) 0.8 10^3/uL (1.5-3.5); LYMPHOCYTES % (AUTO) 17.4 %; MEAN CORPUSCULAR HEMOGLOBIN 34.5 pg (27.0-31.0); MEAN CORPUSCULAR HGB CONC 33.4 g/dL (32.0-36.0); MEAN CORPUSCULAR VOLUME 103.1 fL (80.0-94.0); MEAN PLATELET VOLUME 10.4 fL (7.4-11.4); MONOCYTES # (AUTO) 0.7 10^3/uL (0.0-1.0); MONOCYTES % (AUTO) 16.9 %; NEUTROPHILS # (AUTO) 2.7 10^3/uL (1.5-6.6); NEUTROPHILS % (AUTO) 60.7 %; PLT - PLATELET COUNT 115 10^3/uL (130-450); RED BLOOD COUNT 2.93 10^6/uL (4.70-6.10); RED CELL DISTRIBUTION WIDTH 16.1 % (12.0-15.0); WHITE BLOOD COUNT 4.4 x10^3/uL (4.8-10.8)
--- NOTE | 2018-08-27 00:48 | ED Physician Documentation ---
PD HPI SEIZURE - Stated complaint Stated Complaint: SZ - Chief complaint Chief Complaint: Neuro - History obtained from History obtained from: Patient, Family - History of Present Illness Timing - onset: Today Witnessed: Witnessed Number of seizures: Lasted minutes Description of seizure activity: Generalized, Incontinent Injury during seizure: None. No: Fell Associated symptoms: Unknown Contributing factors: Head injury. No: Low blood sugar Treatment GLOVE PAIRER: Other (None) Similar symptoms before: No diagnosis Recently seen: Admitted - Additional information Additional information: This is a 53-year-old man who presents with his fiance complains that they were eating at home today he was sitting in a chair when he just suddenly passed out into his plate of chicken wings and started "convulsing". The fianc says it lasted for at least 5 minutes during that time he was not coherent but if she called his name he would look at her. He was incontinent of stool. Another member of the household called 911. By the time they got there the fianc had gotten him up changed his pants and had him waiting outside for the ambulance. Apparently this is the third episode of this today and he has had increasing episodes over the past couple of weeks. He thinks he has been experiencing seizures for at least that timeframe but has not seen his primary care provider or ever been evaluated by an. Interestingly the patient fell in the parking lot at [facility] on Father's Day reportedly fell straight back hitting his neck and head on the concrete and had a "immediate seizure" per the fianc. He did not come into the emergency department at that time but subsequently was evaluated the next day. He is not sure what work-up they did at that time.Patient continues to be disoriented. He was a drinker up until Father's Day and he says he has not touched any since then. He did have an episode of vomiting 4 days ago has been diagnosed with gastric ulcers. Denies stuffy nose, sore throat, cough, shortness of breath, palpitations or dysuria.He is not diabetic. Review of Systems Constitutional: denies: Fever Ears: denies: Drainage/discharge Nose: denies: Rhinorrhea / runny nose Throat: denies: Sore throat Cardiac: denies: Chest pain / pressure, Palpitations, Pedal edema Respiratory: denies: Dyspnea, Cough GI: denies: Nausea, Vomiting, Diarrhea : denies: Dysuria, Frequency Skin: denies: Rash Musculoskeletal: reports: Neck pain, Back pain Neurologic: reports: Generalized weakness, Syncope, Seizure, Confused, Headache, Head injury. denies: Focal weakness Endocrine: reports: Other (He is not diabetic.) PD PAST MEDICAL HISTORY - Past Medical History Cardiovascular: RI, Other Respiratory: None Neuro: Head injury Endocrine/Autoimmune: None GI: None : None HEENT: None Psych: Depression Musculoskeletal: Osteoarthritis Derm: None - Past Surgical History Past Surgical History: Yes General: Colonoscopy Ortho: Other - Present Medications Home Medications: Ambulatory Orders Medication Instructions Recorded Confirmed Ascorbic Acid/Bioflavonoids [Vit 1,000 mg PO DAILY 08/23/13 08/11/18 C-Bioflavonoids Tab SA] Trazodone HCl 100 mg PO QPM 08/23/13 08/11/18 Vit B12/FA/Pyridoxine HCl/Aa15 2,500 mg PO DAILY 08/23/13 08/11/18 [Glycotrol Capsule] Meloxicam 7.5 mg PO DAILY 04/25/17 08/11/18 Omeprazole [PriLOSEC] 20 mg PO QDAC 04/25/17 08/11/18 Fluoxetine HCl [Prozac] 20 mg PO DAILY 08/11/18 08/11/18 Gabapentin [Neurontin] 300 mg PO HS 08/11/18 08/11/18 Lisinopril 10 mg PO DAILY 08/11/18 08/11/18 Levofloxacin [Levaquin] 500 mg PO DAILY #14 tablet 08/12/18 - Allergies Allergies/Adverse Reactions: Allergies Allergy/AdvReac Type Severity Reaction Status Date / Time carrot Allergy Anaphylaxis Verified 08/27/18 00:16 celery Allergy Anaphylaxis Verified 08/27/18 00:16 - Social History Does the pt smoke?: Yes Smoking Status: Current every day smoker Does the pt drink ETOH?: Yes Does the pt have substance abuse?: No - Immunizations Immunizations are current?: Yes - POLST Patient has POLST: No PD ED PE NORMAL - Vitals Vital signs reviewed: Yes - General General: Alert and oriented X 3, No acute distress, Well developed/nourished - HEENT HEENT: Atraumatic, PERRL, Moist mucous membranes, Pharynx benign, Other (No tongue or intraoral laceration.) - Neck Neck: Other (Complains of pain with palpation along the cervical spinous processes) - Cardiac Cardiac: RRR, No murmur, Other (Mild tachycardia) - Respiratory Respiratory: No respiratory distress, Clear bilaterally - Abdomen Abdomen: Normal bowel sounds, Soft, Non tender, Non distended, No organomegaly - Derm Derm: Normal color, Warm and dry, No rash - Extremities Extremities: No edema - Neuro Neuro: Alert and oriented X 3, returns processor 2-12 intact, No motor deficit, No sensory deficit, Normal speech, Other (He does have some tremulousness. Reflexes are symmetrical.) - Psych Psych: Normal mood, Normal affect Results - Vitals Vitals: Vital Signs - 24 hr 08/27/18 08/27/18 08/27/18 00:12 00:53 01:52 Temperature 36.7 C Heart Rate 104 H 102 H 101 H Respiratory 21 19 19 Rate Blood Pressure 96/59 L 108/66 95/66 O2 Saturation 100 100 100 08/27/18 08/27/18 02:52 02:57 Temperature Heart Rate 97 Respiratory 18 Rate Blood Pressure 96/65 O2 Saturation 91 L 93 Oxygen O2 Source Room air - EKG (time done) 0025 Rate: Rate (enter#) Rhythm: NSR Intervals: Normal DC Ischemia: Non specific changes Compare to prior EKG: Old EKG unavailable - Labs Labs: Laboratory Tests 08/27/18 08/27/18 08/27/18 00:17 00:35 00:35 WBC 4.4 L RBC 2.93 L Hgb 10.1 L Hct 30.2 L MCV 103.1 H MCH 34.5 H MCHC 33.4 RDW 16.1 H Plt Count 115 L MPV 10.4 Neut # (Auto) 2.7 Lymph # (Auto) 0.8 L [place] # (Auto) 0.7 Eos # (Auto) 0.1 Baso # (Auto) 0.0 Absolute Nucleated RBC 0.00 Nucleated RBC % 0.0 Sodium 133 L Potassium 2.9 L Chloride 96 L Carbon Dioxide 20 L Anion Gap 17.0 H BUN 37 H Creatinine 2.9 H Estimated GFR (MDRD) 23 L Glucose 154 H Calcium 8.5 Phosphorus 4.4 Magnesium 1.2 L Total Bilirubin 0.2 AST 33 ALT 27 Alkaline Phosphatase 68 Total Protein 6.4 L Albumin 3.5 Globulin 2.9 Albumin/Globulin Ratio 1.2 Lipase 67 H Urine Color Urine Clarity Urine pH Ur Specific [place] Urine Protein Urine Glucose (UA) Urine Ketones Urine Occult Blood Urine Nitrite Urine Bilirubin Urine Urobilinogen Ur Leukocyte Esterase Ur Microscopic Review Urine Culture Comments Urine Opiates Screen Ur Oxycodone Screen Urine Methadone Screen Ur Propoxyphene Screen Ur Barbiturates Screen Ur Tricyclics Screen Ur Phencyclidine Scrn Ur Amphetamine Screen U Methamphetamines Scrn U Benzodiazepines Scrn Urine Cocaine Screen U Cannabinoids Screen Ethyl Alcohol < 5.0 08/27/18 01:47 WBC RBC Hgb Hct MCV MCH MCHC RDW Plt Count MPV Neut # (Auto) Lymph # (Auto) [place] # (Auto) Eos # (Auto) Baso # (Auto) Absolute Nucleated RBC Nucleated RBC % Sodium Potassium Chloride Carbon Dioxide Anion Gap BUN Creatinine Estimated GFR (MDRD) Glucose Calcium Phosphorus Magnesium Total Bilirubin AST ALT Alkaline Phosphatase Total Protein Albumin Globulin Albumin/Globulin Ratio Lipase Urine Color YELLOW Urine Clarity CLEAR Urine pH 5.5 Ur Specific [place] <=1.005 Urine Protein TRACE Urine Glucose (UA) NEGATIVE Urine Ketones NEGATIVE Urine Occult Blood TRACE-INTA Urine Nitrite NEGATIVE Urine Bilirubin NEGATIVE Urine Urobilinogen 0.2 (NORMAL) Ur Leukocyte Esterase NEGATIVE Ur Microscopic Review NOT INDICATED Urine Culture Comments NOT INDICATED Urine Opiates Screen NEGATIVE Ur Oxycodone Screen NEGATIVE Urine Methadone Screen NEGATIVE Ur Propoxyphene Screen NEGATIVE Ur Barbiturates Screen NEGATIVE Ur Tricyclics Screen NEGATIVE Ur Phencyclidine Scrn NEGATIVE Ur Amphetamine Screen NEGATIVE U Methamphetamines Scrn NEGATIVE U Benzodiazepines Scrn NEGATIVE Urine Cocaine Screen NEGATIVE U Cannabinoids Screen NEGATIVE Ethyl Alcohol PD MEDICAL DECISION MAKING - ED course Complexity details: reviewed old records, reviewed results, re-evaluated patient, considered differential, d/w patient, d/w family ED course: The patient's potassium was low at 3.2 and he had a low magnesium of 1.2. His CBC was essentially normal. He does have elevation of the BUN and creatinine. He was tachycardic and received a liter of fluids and I ordered potassium IV as well as p.o. as well as the magnesium IV. Patient remained tremulous and tachycardic after the first liter fluids he was given 2 mg of Ativan IV. I felt that the most likely source of his symptoms was alcohol withdrawal. He initially told me he had not drank anything since Father's Day but then upon further questioning said that he drank just a little bit about a week ago. His fiance has a different story about the amount that he consumed and so getting a real accurate picture of his last alcohol intake is not possible. When he was admitted in late July he actually had an extensive work-up including head CT and neck CT. Both of those were normal. He had renal failure at that time as well and was intoxicated with an alcohol level over 200. I gave him 2 mg of Ativan and he subsequently was very somnolent would only arouse to heavy tactile stimulation. His blood pressures were in the upper 70s and low 80s so an additional liter of saline was given and it improved to 95 systolic. He did not have any infectious complaints but apparently he had a urinary tract infection and sepsis on his most recent visit as well. I discussed with Dr. Penn who is on for the hospitalist and he is agreed to accept the patient for an observation admit. Departure - Departure Disposition: 66 [facility] DC/Xfer Clinical Impression: Seizure Condition: Good
[2018-08-27 00:57] LABS: ALBUMIN 3.5 g/dL (3.2-5.5); ALBUMIN/GLOBULIN RATIO 1.2 (1.0-2.2); BILIRUBIN,TOTAL 0.2 mg/dL (0.2-1.0); CALCIUM 8.5 mg/dL (8.5-10.3); CREATININE 2.9 mg/dL (0.6-1.2); TOTAL PROTEIN 6.4 g/dL (6.7-8.2)
[2018-08-27 01:49] LABS: MAGNESIUM 1.2 mg/dL (1.7-2.8); PHOSPHORUS 4.4 mg/dL (2.5-4.6)
[2018-08-27] MEDS ORDERED: POTASSIUM CHLOR 20 MEQ/100 ML 20 MEQ/100 ML BAG IV ONE (01:54)
[2018-08-27] MEDS ORDERED: POTASSIUM CHLORIDE 20 MEQ TABLET PO ONE (01:55)
[2018-08-27] MEDS ORDERED: MAGNESIUM SULFATE 2 GRAM 2 GM/50 ML BAG IV ONE (01:55)
[2018-08-27 01:56] LABS: MUDS CUTOFF CONCENTRATIONS CUTOFF CONC BELOW:
[2018-08-27 01:59] LABS: BILIRUBIN,URINE NEGATIVE (NEGATIVE); GLUCOSE, URINE (UA) NEGATIVE (NEGATIVE); KETONES,URINE (UA) NEGATIVE (NEGATIVE); LEUKOCYTE ESTERASE, URINE NEGATIVE (NEGATIVE); NITRITE,URINE NEGATIVE (NEGATIVE); OCCULT BLOOD,URINE TRACE-INTA (NEGATIVE); PH,URINE 5.5 PH (5.0-7.5); PROTEIN,URINE TRACE mg/dL (NEGATIVE); UROBILINOGEN,URINE 0.2 (NORMAL) E.U./dL (NORMAL)
[2018-08-27 02:00] LABS: CLARITY,URINE CLEAR (CLEAR)
[2018-08-27] MEDS ORDERED: LORazepam 2 MG/ML VIAL IVP STA (02:06)
[2018-08-27 02:09] LABS: AMPHETAMINE SCREEN,URINE NEGATIVE (NEGATIVE); BENZODIAZEPINES SCREEN, URINE NEGATIVE (NEGATIVE); COCAINE SCREEN URINE NEGATIVE (NEGATIVE); METHADONE SCREEN, URINE NEGATIVE (NEGATIVE); METHAMPHETAMINES SCREEN, URINE NEGATIVE (NEGATIVE); OPIATE SCREEN, URINE NEGATIVE (NEGATIVE); OXYCODONE SCREEN, URINE NEGATIVE (NEGATIVE); PROPOXYPHENE SCREEN, URINE NEGATIVE (NEGATIVE); TRICYCLIC ANTIDEPRESSANT,URINE NEGATIVE (NEGATIVE)
[2018-08-27] MEDS ORDERED: SODIUM CHLORIDE FLUSH 0.9% 10 ML SYRINGE IVP PRN (03:46)
[2018-08-27] MEDS ORDERED: LORazepam 2 MG/ML VIAL IVP PRN (03:53)
--- NOTE | 2018-08-27 04:05 | HISTORY & PHYSICAL EXAMINATION ---
Chief Complaint - Chief Complaint Chief Complaint: Seizure History of Present Illness - Admitted From Admitted From:: Home - History Obtained From Records Reviewed: Yes History obtained from: ER Physician, EMR Exam Limitations: Patient somnolent, significant other no longer at bedside - History of Present Illness HPI Comment/Other: This is a 53 year old male with a past medical history significant for alcoholism who presents from home via EMS after his significant other noticed seizure activity. History is obtained from review of the EMR and the ER physician as the patient is somnolent and unable to participate in giving a medical history after receiving Ativan and the significant other is not at bed side currently. He was reportedly doing well today when he passed out and had seizure like activity. He had stool incontinence at the same time. His significant other reported being able to say his name and the patient would be able to look at her. He was admitted August 10 for tremors and acute kidney injury after suffering a fall. He had imaging of his brain and neck which were unremarkable for an acute process. His alcohol level at that time >200. He reportedly told the ER physician that he has not had alcohol since that time although his significant other stated he did have a drink last week. In the emergency department, he was found to be tachycardic and tremulous on exam. He was given 2mg of Ativan which caused him to be quite somnolent and only react to painful stimuli. His labs were significant for a negative alcohol level, elevated creatinine along with hypokalemia and magnesemia. He received 2L of normal saline. Medicine was consulted for admission for the significant lab abnormalities and concern of alcohol withdrawal. History - Past Medical History Cardiovascular: reports: MD, Other Respiratory: reports: None Neuro: reports: Head injury Endocrine/Autoimmune: reports: None GI: reports: None : reports: None HEENT: reports: None Psych: reports: Depression Musculoskeletal: reports: Osteoarthritis Derm: reports: None MRSA Hx?: No - Past Surgical History General: reports: Colonoscopy Ortho: reports: Other - Family & Social History Family History Comment/Other: Unable to obtain due to mental status. Living arrangement: At home Social History Notes: Unable to obtain due to mental status. - Substance History Abuse: Recurrent use of substance despite neg consequences: Alcohol - POLST Patient has POLST: No Meds/Allgy - Home Medications Home Medications: Ambulatory Orders Medication Instructions Recorded Confirmed Ascorbic Acid/Bioflavonoids [Vit 1,000 mg PO DAILY 08/23/13 08/11/18 C-Bioflavonoids Tab SA] Trazodone HCl 100 mg PO QPM 08/23/13 08/11/18 Vit B12/FA/Pyridoxine HCl/Aa15 2,500 mg PO DAILY 08/23/13 08/11/18 [Glycotrol Capsule] Meloxicam 7.5 mg PO DAILY 04/25/17 08/11/18 Omeprazole [PriLOSEC] 20 mg PO QDAC 04/25/17 08/11/18 Fluoxetine HCl [Prozac] 20 mg PO DAILY 08/11/18 08/11/18 Gabapentin [Neurontin] 300 mg PO HS 08/11/18 08/11/18 Lisinopril 10 mg PO DAILY 08/11/18 08/11/18 Levofloxacin [Levaquin] 500 mg PO DAILY #14 tablet 08/12/18 - Allergies Allergies/Adverse Reactions: Allergies Allergy/AdvReac Type Severity Reaction Status Date / Time carrot Allergy Anaphylaxis Verified 08/27/18 00:16 celery Allergy Anaphylaxis Verified 08/27/18 00:16 Review of Systems - Other Findings Other Findings: Unable to obtain due to mental status. Prior Level of Functionality: Independent with ADL's. Exam - Vital Signs Reviewed Vital Signs: Yes Vital Signs: Vital Signs x48h Temp Pulse Resp BP Pulse Ox 08/27/18 02:57 93 08/27/18 02:52 97 18 96/65 91 L 08/27/18 01:52 101 H 19 95/66 100 08/27/18 00:53 102 H 19 108/66 100 08/27/18 00:12 36.7 C 104 H 21 96/59 L 100 - Physical Exam General Appearance: positive: Other (Somnolent. Withdraws to painful stimuli otherwise is asleep. Does not open his eyes to command.) Eyes Bilateral: positive: Other (Pupils constricted at 1-2mm.) ENT: positive: Dry mucous membranes, Other (No evidence of tongue trauma) Neck: positive: Nml inspection Respiratory: positive: No respiratory distress, Breath sounds nml Cardiovascular: positive: Regular rate & rhythm, No murmur Abdomen: positive: Non-tender, No distention. negative: Guarding, Hepatomegaly, Splenomegaly Skin: positive: No rash, Warm Extremities: positive: No pedal edema Neurologic/Psychiatric: positive: Other (Appears to have no focal deficit on my limited neurological exam. Withdraws to painful stimuli. He did receive Ativan prior to my evaluation.) Conclusion/Plan - Problem List (1) Seizure Conclusion/Plan: It is not clear if this was a true seizure or if this could be alcohol withdrawal as his alcohol level is negative and it has always been positive during his prior admissions including the most recent near the end of July. He is currently not tremulous after receiving Ativan. CT of the head/neck back in July did not show an acute process. - Will hold off on loading with Keppra at this time - Initiate [facility] protocol - Ativan PRN - Neurochecks - Check CK's (2) Alcoholism Conclusion/Plan: He has history of alcohol abuse with his last drink reportedly being a week ago. His alcohol level is negative today. - [facility] Protocol - Ativan PRN - Banana bag - home mission worker consult (3) Acute kidney injury Conclusion/Plan: This is likely pre-renal in nature given his alcohol use and evidence of dehydration on exam. It appears his baseline creatinine is 1.2. He is on Kay nopril at home as well. Urinalysis unremarkable. His creatinine was elevated last admission as well and improved with IV hydration. - Continue with IV hydration - Hold Lisinopril - If no improvement in renal function with hydration, will obtain urine electrolytes and rule out other etiologies. (4) Metabolic acidosis Conclusion/Plan: He has an elevated anion gap metabolic acidosis. This may be due to acute kidney vs lactic acidosis or toxic ingestion. - IV hydration with LR - Check VBG - Check lactic acid and serum osm - Daily BMP (5) Prolonged QT interval Conclusion/Plan: Secondary to hypokalemia and hypomagnesemia. QTc is 563 which is quite longer compared to prior EKG although his QRS remains prolonged. - Replace electrolytes aggressively - Avoid QT prolonging medications - Repeat EKG (6) Macrocytic anemia Conclusion/Plan: His hemoglobin is stable compared to prior admission. B12/Folic were previously checked and within normal limits - Monitor CBC (7) Hypomagnesemia Conclusion/Plan: Magnesium was low at 1.2 but received replacements in the ER - Recheck at 0800 - Replace aggressively given EKG findings (8) Hypokalemia Conclusion/Plan: His K is <3 although he received replacement in the ER - Recheck at 0800 - Replace aggressively given EKG findings - Daily labs - Lab Results Lab results reviewed: Yes Fish Bones: 08/27/18 00:35 08/27/18 00:35 - EKG Results EKG Interpreted Independently: Yes EKG Comparison: Changed from prior EKG (EKG reveals a sinus rhythm with heart rate's in the 90's. His QTc is prolonged at 563. QRS is 119ms. No ST segment changes.) Core Measures - Anticipated LOS I expect patient to be DC'd or transferred within 96 hours.: Yes - Issues Hospital Issues and Management Plan: New seizures? Possibly alcohol withdrawal. Acute kidney injury. Requires IV hydration and monitoring for withdrawal. - DVT/VTE - Prophylaxis VTE/DVT Device ordered at admit?: Yes VTE/DVT Prophylaxis med ordered at admit?: Yes
[2018-08-27 04:22] LABS: PT - PROTHROMBIN TIME 11.3 secs (9.9-12.6)
[2018-08-27] MEDS: LACTATED RINGERS 1,000 ML IV SCH ×4 (04:47→22:12)
[2018-08-27 05:46] LABS: VBG BASE EXCESS -7.6 mmol/L (-2 - +2); VBG PCO2 32.5 mmHg (41-51); VBG PH 7.341 (7.31-7.41); VBG PO2 125.5 mmHg (25-47); VBG TOTAL CO2 18.2 mmol/L (24-29)
[2018-08-27] MEDS: SODIUM CHLORIDE FLUSH 0.9% 10 ML SYRINGE IVP SCH ×2 (08:09→17:22)
[2018-08-27 08:15] LABS: CALCIUM 8.3 mg/dL (8.5-10.3); CREATININE 1.9 mg/dL (0.6-1.2); MAGNESIUM 2.1 mg/dL (1.7-2.8)
[2018-08-27] MEDS: HEPARIN 5,000 UNIT/ML VIAL SUBQ SCH ×2 (08:21→20:27)
[2018-08-27] MEDS: MULTIVITAMIN 10 ML, THIAMINE INJ 100 MG, FOLIC ACID INJ 1 MG in SODIUM CHLORIDE 0.9% 1,... IV SCH (08:50)
[2018-08-27] MEDS ORDERED: ACETAMINOPHEN 325 MG TABLET PO PRN (12:13)
[2018-08-27] MEDS ORDERED: oxyCODONE 5 MG TABLET PO PRN (12:14)
[2018-08-27] MEDS ORDERED: ALBUTEROL NEB 2.5 MG/3 ML INH PRN (18:00)
[2018-08-28] MEDS: SODIUM CHLORIDE FLUSH 0.9% 10 ML SYRINGE IVP SCH ×2 (01:39→07:43)
[2018-08-28 04:53] LABS: BASOPHILS % (AUTO) 0.8 %; EOSINOPHILS # (AUTO) 0.3 10^3/uL (0.0-0.7); EOSINOPHILS % (AUTO) 6.8 %; HGB - HEMOGLOBIN 9.3 g/dL (14.0-18.0); LYMPHOCYTES # (AUTO) 1.5 10^3/uL (1.5-3.5); LYMPHOCYTES % (AUTO) 39.9 %; MEAN CORPUSCULAR HEMOGLOBIN 34.1 pg (27.0-31.0); MEAN CORPUSCULAR HGB CONC 32.4 g/dL (32.0-36.0); MEAN CORPUSCULAR VOLUME 105.1 fL (80.0-94.0); MEAN PLATELET VOLUME 9.9 fL (7.4-11.4); MONOCYTES # (AUTO) 0.8 10^3/uL (0.0-1.0); NEUTROPHILS % (AUTO) 27.5 %; PLT - PLATELET COUNT 137 10^3/uL (130-450); RED BLOOD COUNT 2.73 10^6/uL (4.70-6.10); RED CELL DISTRIBUTION WIDTH 16.2 % (12.0-15.0); WHITE BLOOD COUNT 3.7 x10^3/uL (4.8-10.8)
[2018-08-28 05:05] LABS: CALCIUM 8.9 mg/dL (8.5-10.3); CREATININE 1.2 mg/dL (0.6-1.2); MAGNESIUM 1.5 mg/dL (1.7-2.8); PHOSPHORUS 3.8 mg/dL (2.5-4.6)
[2018-08-28] MEDS: LACTATED RINGERS 1,000 ML IV SCH (05:41)
[2018-08-28 07:28] VITALS: BP 156/76
[2018-08-28] MEDS ORDERED: MAGNESIUM SULFATE 1 GM in SODIUM CHLORIDE 0.9% 50 ML IV ONE (07:45)
[2018-08-28] MEDS ORDERED: MAGNESIUM OXIDE 400 MG TABLET PO SCH (08:00)
[2018-08-28] MEDS: HEPARIN 5,000 UNIT/ML VIAL SUBQ SCH (08:41)
[2018-08-28] MEDS: MULTIVITAMIN 10 ML, THIAMINE INJ 100 MG, FOLIC ACID INJ 1 MG in SODIUM CHLORIDE 0.9% 1,... IV SCH (10:42)
--- NOTE | 2018-08-28 10:53 | Discharge Plan ---
Discharge Plan Problem Reviewed?: Yes Disposition: Home, Self Care Condition: Poor Prescriptions: Magnesium Oxide [Mag Ox] 400 mg PO DAILYWM #10 tablet Thiamine HCl [Vitamin B-1] 100 mg PO DAILY #10 tablet Diet: Regular Activity Restrictions: Activity as Tolerated Shower Restrictions: No (fall precaution) Instruction Topics: Alcoholism Impact, Dehydration, Epilepsy Dx Health Concerns: seizure relative to alcoholism, dehydration Plan of Treatment: discussed with you about quitting of alcoholism. it is very important for you to quit your alcoholism at this point. Keeping your hydration is also important thing for you. you do not have seizure at hospital. we believe it is relative to your alcoholic intoxication with withdrawal, advise you followup neurologist if you continue to have this problem Care Goals: stabilization of your medical conditions Assessment: assessment as the above Additional Instructions or Follow Up instructions: you may followup your PCP in one week. Should your symptoms return or worsen, you may present ER, call 911 or your PCP for help No Smoking: If you smoke, Please STOP! Call for help. Follow-up with: Melanie Cage ARNP [Primary Care Provider] -
--- NOTE | 2018-08-28 11:15 | DISCHARGE SUMMARY ---
Discharge Summary Discharge Date: 08/28/18 Discharging Provider: DUMONT Primary Care Provider: Melanie Reyes Condition at Discharge: Poor Discharge Disposition: 01 Home, Self Care Discharge Facility Name: home - DIAGNOSES Admission Diagnoses: (1) Seizure (2) Alcoholism (3) Acute kidney injury (4) Metabolic acidosis (5) Prolonged QT interval (6) Macrocytic anemia (7) Hypomagnesemia (8) Hypokalemia Discharge Diagnoses with Status of Each Condition: 1) Seizure resolved. (2) Alcoholism advise pt quit. pt state he will. consulted with psych social worker to help pt (3) Acute kidney injury resolved (4) Metabolic acidosis resolved (5) Prolonged QT interval stable. (6) Macrocytic anemia stable (7) Hypomagnesemia Placed. pt is prescribed Mag Oxide (8) Hypokalemia resolved - HPI History of Present Illness: This is a 53 year old male with a past medical history significant for alcoholism who presents from home via EMS after his significant other noticed seizure activity. History is obtained from review of the EMR and the ER physician as the patient is somnolent and unable to participate in giving a medical history after receiving Ativan and the significant other is not at bed side currently. He was reportedly doing well today when he passed out and had seizure like activity. He had stool incontinence at the same time. His significant other reported being able to say his name and the patient would be able to look at her. He was admitted August 10 for tremors and acute kidney injury after suffering a fall. He had imaging of his brain and neck which were unremarkable for an acute process. His alcohol level at that time >200. He reportedly told the ER physician that he has not had alcohol since that time al though his significant other stated he did have a drink last week. In the emergency department, he was found to be tachycardic and tremulous on exam. He was given 2mg of Ativan which caused him to be quite somnolent and only react to painful stimuli. His labs were significant for a negative alcohol level, elevated creatinine along with hypokalemia and magnesemia. He received 2L of normal saline. Medicine was consulted for admission for the significant lab abnormalities and concern of alcohol withdrawal. - HOSPITAL COURSE Hospital Course: pt was admitted for seizure from alcoholism withdrawal/intoxication. pt was also found to have low potassium and magnesium. After pt was admitted in hospital, pt has no seizure activity, no significant alcohol withdrawal symptoms. pt's electrolytic was placed and resolved. pt strongly request to be d/c to home t jovana. pt is alert and oriented to self, location, and time. transition social worker was consulted for pt. pt promised to me he will quit alcohol. - ALLERGIES Allergies/Adverse Reactions: Allergies Allergy/AdvReac Type Severity Reaction Status Date / Time carrot Allergy Anaphylaxis Verified 08/27/18 00:16 celery Allergy Anaphylaxis Verified 08/27/18 00:16 - MEDICATIONS Home Medications: Ambulatory Orders Medication Instructions Recorded Confirmed Trazodone HCl 100 mg PO QPM 08/23/13 08/27/18 Meloxicam 7.5 mg PO DAILY 04/25/17 08/27/18 Omeprazole [PriLOSEC] 20 mg PO QDAC 04/25/17 08/27/18 Fluoxetine HCl [Prozac] 20 mg PO DAILY 08/11/18 08/27/18 Gabapentin [Neurontin] 300 mg PO HS 08/11/18 08/27/18 Lisinopril 10 mg PO DAILY 08/11/18 08/27/18 Levofloxacin [Levaquin] 500 mg PO DAILY #14 tablet 08/12/18 08/27/18 Cetirizine [ZyrTEC] 10 mg PO DAILY 08/27/18 08/27/18 Magnesium Oxide [Mag Ox] 400 mg PO DAILYWM #10 tablet 08/28/18 Thiamine HCl [Vitamin B-1] 100 mg PO DAILY #10 tablet 08/28/18 - PHYSICAL EXAM AT DISCHARGE General Appearance: positive: No acute distress, Alert. negative: Lethargic Eyes Bilateral: positive: Normal inspection, PERRL, No lid inflammation, Conjunctivae nml ENT: positive: ENT inspection nml, Pharynx nml, No signs of dehydration. negative: Purulent nasal drainage, Pharyngeal erythema, Oral lesions Neck: positive: Nml inspection, Thyroid nml, No JVD, Trachea midline. negative: Thyromegaly, Lymphadenopathy (R), Lymphadenopathy (L), Stiff neck, Swelling/bruising, Tracheal deviation Respiratory: positive: Chest non-tender, No respiratory distress, Breath sounds nml. negative: Wheezes, Rales, Rhonchi Cardiovascular: positive: Regular rate & rhythm, No murmur, No gallop. negat sean: Irregularly irregular, Extrasystoles, Tachycardia, Bradycardia, JVD present, Systolic murmur, Diastolic murmur Peripheral Pulses: positive: 2+ Abdomen: positive: Non-tender, No organomegaly, Nml bowel sounds, No distention. negative: Tenderness, Guarding, Rebound Back: positive: Nml inspection. negative: CVA tenderness (R), CVA tenderness (L) Skin: positive: Color nml, No rash, Warm, Dry. negative: Cyanosis, Diaphoresis, Pallor Extremities: positive: Non-tender, Full ROM, Nml appearance. negative: Pedal edema, Calf tenderness, Joint swelling, Abel's sign/cords Neurologic/Psychiatric: positive: Oriented x3, Motor nml, Sensation nml, Mood/affect nml. negative: Weakness, Sensory loss, Facial droop, Slurred/abnml speech, Depressed mood/affect - LABS Result Diagrams: 08/28/18 04:45 08/28/18 04:45 - FOLLOW UP Follow Up: discussed with you about quitting of alcoholism. it is very important for you to quit your alcoholism at this point. Keeping your hydration is also important thing for you. you do not have seizure at hospital. we believe it is relative to your alcoholic intoxication with withdrawal, advise you followup neurologist if you continue to have this problem. you may followup your PCP in one week. Should your symptoms return or worsen, you may present ER, call 911 or your PCP for help - TIME SPENT Time Spent in Discharge (Minutes): 55
== END 2018-08-28 11:50 | disposition home or self-care (01) ==
LOC: EDUNIT# → ED 00:09 → MS3 03:46
PROVIDERS: ADMIT Internal Medicine; ATTEND Nurse Practitioner Gerontology
DX: F10.239 Alcohol dependence with withdrawal, unspecified (principal); R56.9 Unspecified convulsions; F10.229 Alcohol dependence with intoxication, unspecified; N17.9 Acute kidney failure, unspecified; E86.0 Dehydration; E87.2 Acidosis; I45.81 Long QT syndrome; D53.9 Nutritional anemia, unspecified; E83.42 Hypomagnesemia; E87.6 Hypokalemia; K25.9 Gastric ulcer, unspecified as acute or chronic, without hemorrhage or perforation; F32.9 Major depressive disorder, single episode, unspecified; F17.200 Nicotine dependence, unspecified, uncomplicated; I25.2 Old myocardial infarction; Y90.0 Blood alcohol level of less than 20 mg/100 ml; Z79.899 Other long term (current) drug therapy; Z91.81 History of falling; Z87.440 Personal history of urinary (tract) infections
CPT/HCPCS: 36415; 80048; 80053; 80306; 80320; 81003; 82550; 82803; 83605; 83690; 83735; 83930; 84100; 85025; 85610; 93005; 96361; 96365; 96366; 96367; 96368; 96372; 96375; 99285; A9270; G0378; J2060; J3411; J7040; J7120; 81001; 87086

== ENCOUNTER 2018-09-15 07:28 | Outpatient (CLI) | payer MEDICAID ==
--- NOTE | 2018-09-15 17:29 | MRI Report ---
Reason: BACK PAIN, LOW Procedure Date: 09/15/2018 Accession Number: [id number] / [id number] Procedure: MRI - Lumbar Spine W/O CPT Code: FULL RESULT: EXAM: MRI LUMBAR SPINE WITHOUT CONTRAST EXAM DATE: 09/15/2018 08:20 AM. CLINICAL HISTORY: Back pain, low. COMPARISON: None. TECHNIQUE: Multiplanar, multisequence T1-weighted and fluid-sensitive sequences of the lumbar spine from T12 to S1 without contrast. Other: None. FINDINGS: Spinal Canal: The conus terminates at T12. The conus medullaris and cauda equina are unremarkable. Alignment: No scoliosis or spondylolisthesis. Bone Marrow: Five [id number] lumbar vertebral bodies are assumed. No gross fractures or bone lesions. No bone marrow replacement. Disk Levels/Facets: T12-L1: Unremarkable. L1-L2: Mild broad-based disk bulge is seen. Prominent facets. No stenosis. L2-L3: Some disk dehydration. Minimal bulge. No stenosis. L3-L4: Some disk dehydration and prominent facets. No central stenosis. Mild bilateral foraminal stenosis. L4-L5: Mild broad-based disk bulge, some minimal endplate sclerosis. Prominent facets. No central stenosis. Moderate bilateral foraminal stenosis. L5-S1: Broad-based disk bulge is seen. Prominent facets. No central and no foraminal stenosis. Musculature: Moderate fatty atrophy of the multifidus muscle is noted. Other: The partially visualized retroperitoneum is unremarkable. IMPRESSION: 1. Spinal cord terminates at T12 which is normal. No scoliosis or listhesis. 2. L2-L3 shows disk dehydration, minimal bulge and no stenosis. 3. L3-L4 shows broad-based bulge, no central stenosis and mild bilateral foraminal stenosis. 4. L4-L5 shows some endplate sclerosis, prominent facets. No central stenosis and moderate bilateral foraminal stenosis. 5. L5-S1 shows broad-based disk bulge, no central or foraminal stenosis. Comment: The following findings are so common in adults without low back pain that while we report their presence, they must be interpreted with caution and in the context of the clinical situation. (Reference Elsyk et al, Spine 2001) Prevalence of findings in patients without low back pain: Disk degeneration (any evidence): 92% Disk desiccation/T2 signal loss: 83% Disk height loss: 56% Disk bulge: 64% Disk protrusion: 32% Annular tear/high intensity zone: 38% RADIA
== END 2018-09-15 07:29 | disposition home or self-care (01) ==
LOC: DI 07:28
PROVIDERS: ATTEND Nurse Practitioner Gerontology
DX: M51.36 Other intervertebral disc degeneration, lumbar region (principal); M48.061 Spinal stenosis, lumbar region without neurogenic claudication
CPT/HCPCS: 72148

== ENCOUNTER 2018-10-04 22:09 | Outpatient (CLI) | payer MEDICAID | END 2018-10-04 22:10 | disposition critical access hospital (66) | LOC: EMS 22:09 | PROVIDERS: ATTEND Surgery | DX: R56.9 Unspecified convulsions (principal) | CPT/HCPCS: A0425; A0427; A0999 ==

== ENCOUNTER 2018-10-04 22:20 | Emergency (ER) | payer MEDICAID ==
--- NOTE | 2018-10-04 22:28 | ED Physician Documentation ---
PD HPI SEIZURE - Stated complaint Stated Complaint: SIEZURE - Chief complaint Chief Complaint: Neuro - History obtained from History obtained from: Patient, EMS - History of Present Illness Timing - onset: How many minutes ago (30), Today Witnessed: Witnessed (family heard a yell type sound and went into bedroom to see patient with seizure activity. Lasted a minute and then he was confused after. EMS saw patient post ictal. He is alert gisela rrival to ER. He says he has prior recent seizures, and has MRI brain and Neurology appt in next couple weeks.) Number of seizures: Single, Lasted minutes (1) Description of seizure activity: Generalized, Tonic clonic, Postictal Injury during seizure: None Associated symptoms: Nausea / vomiting (few days ago, was improving today but still feeling dehydrated.). No: Dyspnea History of seizures: Known seizure disorder (just in the past few months, workup progressing.) Contributing factors: No: Low blood sugar, EtOH withdrawal, Fever, Sleep deprivation Similar symptoms before: No diagnosis (new onset seizures recently) Review of Systems Constitutional: denies: Fever, Chills Nose: denies: Rhinorrhea / runny nose, Congestion Throat: denies: Sore throat Respiratory: denies: Cough GI: reports: Nausea (3 days ago for 1 1/2 days, along with diarrhea.), Vomiting Neurologic: reports: Generalized weakness. denies: Focal weakness, Numbness, Altered mental status, Headache PD PAST MEDICAL HISTORY - Past Medical History Cardiovascular: [place], Other Respiratory: None Neuro: Head injury Endocrine/Autoimmune: None GI: None : None HEENT: None Psych: Depression Musculoskeletal: Osteoarthritis Derm: None - Past Surgical History Past Surgical History: Yes General: Colonoscopy Ortho: Other - Present Medications Home Medications: Ambulatory Orders Medication Instructions Recorded Confirmed Trazodone HCl 100 mg PO QPM 08/23/13 08/27/18 Meloxicam 7.5 mg PO DAILY 04/25/17 08/27/18 Omeprazole [PriLOSEC] 20 mg PO QDAC 04/25/17 08/27/18 Fluoxetine HCl [Prozac] 20 mg PO DAILY 08/11/18 08/27/18 Gabapentin [Neurontin] 300 mg PO HS 08/11/18 08/27/18 Lisinopril 10 mg PO DAILY 08/11/18 08/27/18 Levofloxacin [Levaquin] 500 mg PO DAILY #14 tablet 08/12/18 08/27/18 Cetirizine [ZyrTEC] 10 mg PO DAILY 08/27/18 08/27/18 Magnesium Oxide [Mag Ox] 400 mg PO DAILYWM #10 tablet 08/28/18 Thiamine HCl [Vitamin B-1] 100 mg PO DAILY #10 tablet 08/28/18 Famotidine 20 mg PO DAILY #30 tablet 10/05/18 Ondansetron Odt [Zofran] 4 mg TL Q6H PRN #10 tablet 10/05/18 - Allergies Allergies/Adverse Reactions: Allergies Allergy/AdvReac Type Severity Reaction Status Date / Time carrot Allergy Anaphylaxis Verified 10/04/18 22:28 celery Allergy Anaphylaxis Verified 10/04/18 22:28 - Social History Does the pt smoke?: Yes Smoking Status: Current every day smoker Does the pt drink ETOH?: Yes Does the pt have substance abuse?: No - Immunizations Immunizations are current?: Yes - POLST Patient has POLST: No PD ED PE NORMAL - Vitals Vital signs reviewed: Yes - General General: Alert and oriented X 3, No acute distress, Well developed/nourished - HEENT HEENT: Pharynx benign - Neck Neck: Supple, no meningeal sign, No adenopathy - Cardiac Cardiac: RRR, No murmur - Respiratory Respiratory: Clear bilaterally - Abdomen Abdomen: Normal bowel sounds, Soft, Non tender, Non distended - Rectal Rectal: Other (brown stool that is trace guiac positive. ) - Back Back: No CVA TTP - Derm Derm: Normal color, Warm and dry - Extremities Extremities: Normal ROM s pain, No edema, No calf tenderness / cord - Neuro Neuro: Alert and oriented X 3, activity therapy specialist 2-12 intact, No motor deficit, No sensory deficit, Normal speech Results - Vitals Vitals: Vital Signs - 24 hr 10/04/18 10/04/18 10/04/18 22:57 23:27 23:57 Temperature Heart Rate 109 H 97 87 Respiratory 15 21 18 Rate Blood Pressure 122/94 H 115/70 115/70 O2 Saturation 92 93 97 10/05/18 10/05/18 10/05/18 00:00 00:30 01:00 Temperature Heart Rate 87 86 80 Respiratory 14 18 16 Rate Blood Pressure 114/70 110/62 117/68 O2 Saturation 93 98 98 10/05/18 10/05/18 10/05/18 01:30 02:00 02:30 Temperature Heart Rate 88 115 H 96 Respiratory 14 14 18 Rate Blood Pressure 118/68 128/81 H O2 Saturation 99 99 95 10/05/18 03:10 Temperature 36.7 C Heart Rate 99 Respiratory 20 Rate Blood Pressure 103/70 O2 Saturation 97 Oxygen O2 Source Room air - Labs Labs: Laboratory Tests 10/05/18 10/05/18 00:13 00:13 WBC 10.1 RBC 3.22 L Hgb 10.9 L Hct 32.4 L MCV 100.6 H MCH 33.9 H MCHC 33.6 RDW 13.8 Plt Count 126 L MPV 10.3 Neut # (Auto) 8.2 H Lymph # (Auto) 1.0 L [place] # (Auto) 0.8 Eos # (Auto) 0.1 Baso # (Auto) 0.0 Absolute Nucleated RBC 0.00 Nucleated RBC % 0.0 Sodium 134 L Potassium 2.8 L Chloride 99 L Carbon Dioxide 20 L Anion Gap 15.0 H BUN 29 H Creatinine 1.4 H Estimated GFR (MDRD) 53 L Glucose 95 Calcium 8.8 Magnesium 1.7 Total Bilirubin 0.7 AST 63 H ALT 49 Alkaline Phosphatase 62 Total Protein 6.6 L Albumin 3.9 Globulin 2.7 Albumin/Globulin Ratio 1.4 Lipase 600 H Ethyl Alcohol < 5.0 PD MEDICAL DECISION MAKING - ED course Complexity details: considered differential (brown stool that is guiac positive. Had vomiting and diarrhea few days ago, so presume some gastritis. Good vitals and blood count. recent seizures with workup in progress. Did not see need for imaging. ), d/w patient Departure - Departure Disposition: 01 Home, Self Care Clinical Impression: Seizure, Nausea vomiting and diarrhea, Dehydration Episode of syncope Qualifiers: Syncope type: unspecified Qualified Code(s): R55 - Syncope and collapse GI bleeding Qualifiers: GI bleed type/associated pathology: unspecified gastrointestinal hemorrhage type Qualified Code(s): K92.2 - Gastrointestinal hemorrhage, unspecified Condition: Stable Record reviewed to determine appropriate education?: Yes Instructions: ED Dehydration, ED Bleed UGI Stable Follow-Up: Melanie Cage ARNP [Primary Care Provider] - Prescriptions: Famotidine 20 mg PO DAILY #30 tablet Ondansetron Odt [Zofran] 4 mg TL Q6H PRN #10 tablet PRN Reason: Nausea / Vomiting Comments: Stay well-hydrated. Ondansetron if needed for nausea. It sounds like you had a fainting episode likely from being under hydrated and your blood pressure went low. You do have some trace of blood in your stool but your blood count is adequate enough at this point. Use famotidine acid reducing medicine daily for presumption of some irritated stomach (gastritis) from your recent stomach flu type symptoms. Recheck with your primary care in the next few days and they could recheck your blood count to ensure it still doing okay. Return if worse symptoms. Regarding your seizure with this, continue with the current plan of your MRI brain and neurology appointment in the near future as planned. Return if further seizure episodes. Discharge Date/Time: 10/05/18 03:12
[2018-10-04] MEDS ORDERED: ONDANSETRON 4 MG/2 ML VIAL IVP STA (23:11)
[2018-10-04] MEDS ORDERED: SODIUM CHLORIDE 0.9% 1,000 ML IV ONE (23:11)
[2018-10-04] MEDS ORDERED: FAMOTIDINE 20 MG/2 ML VIAL IVP STA (23:12)
[2018-10-05 00:19] LABS: BASOPHILS % (AUTO) 0.4 %; EOSINOPHILS # (AUTO) 0.1 10^3/uL (0.0-0.7); EOSINOPHILS % (AUTO) 1.1 %; HGB - HEMOGLOBIN 10.9 g/dL (14.0-18.0); LYMPHOCYTES % (AUTO) 9.6 %; MEAN CORPUSCULAR HEMOGLOBIN 33.9 pg (27.0-31.0); MEAN CORPUSCULAR HGB CONC 33.6 g/dL (32.0-36.0); MEAN CORPUSCULAR VOLUME 100.6 fL (80.0-94.0); MEAN PLATELET VOLUME 10.3 fL (7.4-11.4); MONOCYTES # (AUTO) 0.8 10^3/uL (0.0-1.0); MONOCYTES % (AUTO) 7.6 %; NEUTROPHILS # (AUTO) 8.2 10^3/uL (1.5-6.6); PLT - PLATELET COUNT 126 10^3/uL (130-450); RED BLOOD COUNT 3.22 10^6/uL (4.70-6.10); RED CELL DISTRIBUTION WIDTH 13.8 % (12.0-15.0); WHITE BLOOD COUNT 10.1 x10^3/uL (4.8-10.8)
[2018-10-05] MEDS ORDERED: SODIUM CHLORIDE 0.9% 1,000 ML IV ONE (00:36)
[2018-10-05 01:07] LABS: ALBUMIN 3.9 g/dL (3.2-5.5); ALBUMIN/GLOBULIN RATIO 1.4 (1.0-2.2); ALKALINE PHOSPHATASE 62 IU/L (42-121); ALT ALANINE AMINOTRANSFERASE 49 IU/L (10-60); AST ASPARTATE AMINOTRANSFERASE 63 IU/L (10-42); BILIRUBIN,TOTAL 0.7 mg/dL (0.2-1.0); BUN - BLOOD UREA NITROGEN 29 mg/dL (6-20); CALCIUM 8.8 mg/dL (8.5-10.3); CARBON DIOXIDE - CO2 20 mmol/L (21-32); CHLORIDE 99 mmol/L (101-111); CREATININE 1.4 mg/dL (0.6-1.2); GFR - MDRD 53 (>89); GLUCOSE 95 mg/dL (70-100); LIPASE 600 U/L (22-51); MAGNESIUM 1.7 mg/dL (1.7-2.8); SODIUM 134 mmol/L (135-145); TOTAL PROTEIN 6.6 g/dL (6.7-8.2)
[2018-10-05] MEDS ORDERED: POTASSIUM CHLOR 10 MEQ/100 ML 10 MEQ/100 ML BAG IV ONE (01:13)
[2018-10-05] MEDS ORDERED: ONDANSETRON ODT 4 MG Prepack 2 TL PRN (02:48)
[2018-10-05 03:10] VITALS: BP 103/70
== END 2018-10-05 03:12 | disposition home or self-care (01) ==
LOC: EDUNIT# → ED 22:20
DX: G40.909 Epilepsy, unspecified, not intractable, without status epilepticus (principal); E86.0 Dehydration; R55 Syncope and collapse; K92.1 Melena; R11.2 Nausea with vomiting, unspecified; R19.7 Diarrhea, unspecified; F17.200 Nicotine dependence, unspecified, uncomplicated
CPT/HCPCS: 36415; 80053; 80320; 83690; 83735; 85025; 96361; 96374; 96375; 99283

== ENCOUNTER 2018-11-19 09:04 | Emergency (ER) | payer MEDICAID ==
--- NOTE | 2018-11-19 09:33 | ED Physician Documentation ---
History of Present Illness - Stated complaint Stated Complaint: NOSE LAC - Chief complaint Chief Complaint: General - History obtained from History obtained from: Patient - History of Present Illness Timing: How many days ago (2) Pain level max: 6 Pain level now: 5 - Additonal information Additional information: 53-year-old male presents to the emergency department after a fall 2 days ago. States that he lacerated his nose and forehead. Has had left-sided facial and head pain since that time. Also neck pain. No numbness or tingling. Has been using alcohol to "deal with the pain". Has not taken anything else for the pain. Does have a history of alcoholism. No abdominal pain. No nausea or vomiting. No diarrhea or constipation. No back pain. Worse with movement and better with rest Review of Systems Ten Systems: 10 systems reviewed and negative Constitutional: denies: Fever, Chills GI: denies: Vomiting, Diarrhea Skin: denies: Rash Musculoskeletal: reports: Neck pain. denies: Back pain Neurologic: reports: Headache. denies: Focal weakness, Numbness, Confused, Altered mental status, LOC PD PAST MEDICAL HISTORY - Past Medical History Cardiovascular: [place], Other Respiratory: None Neuro: Head injury Endocrine/Autoimmune: None GI: None : None HEENT: None Psych: Depression Musculoskeletal: Osteoarthritis Derm: None - Past Surgical History Past Surgical History: Yes General: Colonoscopy Ortho: Other - Present Medications Home Medications: Ambulatory Orders Medication Instructions Recorded Confirmed Trazodone HCl 100 mg PO QPM 08/23/13 08/27/18 Meloxicam 7.5 mg PO DAILY 04/25/17 08/27/18 Omeprazole [PriLOSEC] 20 mg PO QDAC 04/25/17 08/27/18 Fluoxetine HCl [Prozac] 20 mg PO DAILY 08/11/18 08/27/18 Gabapentin [Neurontin] 300 mg PO HS 08/11/18 08/27/18 Lisinopril 10 mg PO DAILY 08/11/18 08/27/18 Cetirizine [ZyrTEC] 10 mg PO DAILY 08/27/18 08/27/18 Magnesium Oxide [Mag Ox] 400 mg PO DAILYWM #10 tablet 08/28/18 Thiamine HCl [Vitamin B-1] 100 mg PO DAILY #10 tablet 08/28/18 Famotidine 20 mg PO DAILY #30 tablet 10/05/18 Ondansetron Odt [Zofran] 4 mg TL Q6H PRN #10 tablet 10/05/18 - Allergies Allergies/Adverse Reactions: Allergies Allergy/AdvReac Type Severity Reaction Status Date / Time carrot Allergy Anaphylaxis Verified 11/19/18 09:25 celery Allergy Anaphylaxis Verified 11/19/18 09:25 - Social History Does the pt smoke?: Yes Smoking Status: Current every day smoker Does the pt drink ETOH?: Yes Does the pt have substance abuse?: No - Immunizations Immunizations are current?: Yes - POLST Patient has POLST: No PD ED PE NORMAL - Vitals Vital signs reviewed: Yes - General General: Alert and oriented X 3, No acute distress, Well developed/nourished - HEENT HEENT: PERRL, EOMI, Ears normal, Moist mucous membranes, Pharynx benign, Other (Healing laceration to the bridge of the nose and the left forehead. Diffuse tenderness across the forehead and left periorbital area. Extraocular movements are normal. No crepitus. No ecchymosis.) - Neck Neck: Supple, no meningeal sign, Other (Mild diffuse tenderness over the cervic al spine.) - Cardiac Cardiac: RRR, Strong equal pulses - Respiratory Respiratory: No respiratory distress, Clear bilaterally - Abdomen Abdomen: Soft, Non tender, Non distended - Back Back: No spinal TTP - Derm Derm: Warm and dry - Extremities Extremities: No deformity, Normal ROM s pain - Neuro Neuro: Alert and oriented X 3, automotive worker 2-12 intact, No motor deficit, No sensory deficit, Normal speech - Psych Psych: Normal mood, Normal affect Results - Vitals Vitals: Vital Signs - 24 hr 11/19/18 11/19/18 11/19/18 09:06 09:14 09:44 Temperature 36 C L Heart Rate 97 90 83 Respiratory 16 18 18 Rate Blood Pressure 118/77 125/94 H 107/75 O2 Saturation 95 98 95 11/19/18 10:14 Temperature Heart Rate 84 Respiratory 16 Rate Blood Pressure 119/87 H O2 Saturation 97 Oxygen O2 Source Room air - Rads (name of study) head CT Radiology: Prelim report reviewed, EMP read contemporaneously, See rad report (No acute intracranial abnormality. Acute nasal bone fracture as described above. See separate report. ) maxillofacial CT Radiology: Prelim report reviewed, EMP read contemporaneously, See rad report (Acute and chronic fractures at the nasal bone. No additional fractures detected.. ) cervical spine CT Radiology: Prelim report reviewed, EMP read contemporaneously, See rad report (No acute fracture of the cervical spine. 2. Multilevel degenerative changes, worst at C5-C6 and C6-C7. 3. Other findings as above. ) PD MEDICAL DECISION MAKING - ED course Complexity details: reviewed results, re-evaluated patient, considered differential, d/w patient ED course: 53-year-old male presents the emergency department after a fall several days ago. Has nasal bone fractures but no other findings on CT scan. Neurovascularly intact. Wounds are without infection. Patient counseled regarding signs of infection. No neurological deficits. Patient counseled regarding signs and symptoms for which I believe and urgent re-evaluation would be necessary. Patient with good understanding of and agreement to plan and is comfortable going home at this time This document was made in part using voice recognition software. While efforts are made to proofread this document, sound alike and grammatical errors may occur. Departure - Departure Disposition: 01 Home, Self Care Clinical Impression: Alcoholism Nasal bone fracture Qualifiers: Encounter type: initial encounter Fracture type: closed Qualified Code(s): S02.2XXA - Fracture of nasal bones, initial encounter for closed fracture Facial laceration Qualifiers: Encounter type: initial encounter Qualified Code(s): S01.81XA - Laceration without foreign body of other part of head, initial encounter Condition: Good Instructions: ED Head Injury Closed Follow-Up: Melanie Cage FLOAT BUILDER [Primary Care Provider] - Within 1 week Comments: Keep the wound clean. You can use Motrin or Tylenol as needed for pain. Your CT scans do not show any acute abnormalities other than a nasal bone fracture today. Follow-up with your doctor for further care. Return if you notice redness, swelling or drainage from your wounds Discharge Date/Time: 11/19/18 10:58
--- NOTE | 2018-11-19 10:37 | CT Report ---
Reason: fall 2 days ago, head, neck, face pain Procedure Date: 11/19/2018 Accession Number: [id number] / [id number] Procedure: CT - MAXILLOFACIAL WO CPT Code: FULL RESULT: EXAM: CT MAXILLOFACIAL WITHOUT CONTRAST EXAM DATE: 11/19/2018 09:58 AM. CLINICAL HISTORY: Fall 2 days ago, head, neck, face pain. COMPARISONS: CERVICAL SPINE W/O 08/10/2018 7:51 PM HEAD W/O 08/10/2018 7:51 PM. TECHNIQUE: Thin-section axial images were acquired of the face without contrast. Post-processing: Coronal and sagittal reformats. Other: None. In accordance with CT protocol optimization, one or more of the following dose reduction techniques were utilized for this exam: automated exposure control, adjustment of mA and/or KV based on patient size, or use of iterative reconstructive technique. FINDINGS: There are both acute and chronic appearing fractures of the nasal bone. The nose is deviated to the left. No significant opacification of the facial or paranasal sinuses. No additional fractures identified. The mastoid air cells appear appropriately aerated. The TMJs appear stable and within normal limits. IMPRESSION: Acute and chronic fractures at the nasal bone. No additional fractures detected.. RADIA
--- NOTE | 2018-11-19 10:37 | CT Report ---
Reason: fall 2 days ago, head, neck, face pain Procedure Date: 11/19/2018 Accession Number: [id number] / [id number] Procedure: CT - HEAD WO CPT Code: FULL RESULT: EXAM: CT HEAD EXAM DATE: 11/19/2018 09:58 AM. CLINICAL HISTORY: Fall 2 days ago, head, neck, face pain. COMPARISON: CERVICAL SPINE W/O 08/10/2018 7:[address] head 08/10/2018. TECHNIQUE: Multiaxial CT images were obtained from the foramen magnum to the vertex. Reformats: Sagittal and coronal. IV contrast: None. In accordance with CT protocol optimization, one or more of the following dose reduction techniques were utilized for this exam: automated exposure control, adjustment of mA and/or KV based on patient size, or use of iterative reconstructive technique. FINDINGS: Parenchyma: No intraparenchymal hemorrhage. No evidence of mass, midline shift, or CT findings of infarction. Hunt-white differentiation is distinct. Extraaxial Spaces: Normal for age. No subdural or epidural collections identified. Ventricles: Normal in size and position. Sinuses and Orbits: Imaged paranasal sinuses, orbits, and mastoids show no significant abnormality. Bones: Left-sided nasal bone fracture. There is a tiny drop of adjacent superior midline subcutaneous air which is of doubtful clinical significance. There is no evidence of sinus wall fracture or sinus opacification Other: None. IMPRESSION: 1. No acute intracranial abnormality. 2. Acute nasal bone fracture as described above. See separate report. RADIA
[2018-11-19 10:38] VITALS: BP 119/87
--- NOTE | 2018-11-19 10:39 | CT Report ---
Reason: fall 2 days ago, head, neck, face pain Procedure Date: 11/19/2018 Accession Number: [id number] / [id number] Procedure: CT - CERVICAL SPINE WO CPT Code: FULL RESULT: EXAM: CT CERVICAL SPINE WITHOUT CONTRAST DATE: 11/19/2018 09:58 AM. HISTORY: Fall 2 days ago, head, neck, face pain. COMPARISONS: CERVICAL SPINE W/O 08/10/2018 7:51 PM. TECHNIQUE: Thin-section axial images were acquired of the cervical spine without contrast. Post-processing: Coronal and sagittal reformats. Other: None. In accordance with CT protocol optimization, one or more of the following dose reduction techniques were utilized for this exam: automated exposure control, adjustment of mA and/or KV based on patient size, or use of iterative reconstructive technique. FINDINGS: Alignment: Mild dextroscoliosis, similar to prior exam. Stable 2 mm of anterolisthesis at C4-C5. There is some focal kyphosis at this level, also unchanged. Stable 2 mm of retrolisthesis of C5 on C6 and C6 on C7. Bones: No acute fracture. Multilevel degenerative changes with severe disk space narrowing, endplate sclerosis, and anterior osteophyte formation at C5-C6 and C6-C7. Degenerative changes are seen to a lesser degree and C7-T1. Mild disk space narrowing is also seen at C4-C5. Musculature: Normal. No fatty atrophy. Other: The paravertebral and prevertebral soft tissues are unremarkable. Severe emphysematous changes are seen in the bilateral lung apices. Visualized intracranial contents and facial bones evaluated on concurrent CT head and facial bones (separate reports). IMPRESSION: 1. No acute fracture of the cervical spine. 2. Multilevel degenerative changes, worst at C5-C6 and C6-C7. 3. Other findings as above. [facility]
[2018-11-19] MEDS ORDERED: ACETAMINOPHEN 325 MG TABLET PO STA (10:49)
== END 2018-11-19 10:58 | disposition home or self-care (01) ==
LOC: ED 09:04
DX: S01.81XA Laceration without foreign body of other part of head, initial encounter (principal); S02.2XXA Fracture of nasal bones, initial encounter for closed fracture; W19.XXXA Unspecified fall, initial encounter; F10.20 Alcohol dependence, uncomplicated; F17.200 Nicotine dependence, unspecified, uncomplicated
CPT/HCPCS: 70450; 70486; 72125; 99284; A9270

== ENCOUNTER 2018-12-23 23:06 | Outpatient (CLI) | payer MEDICAID | END 2018-12-23 23:07 | disposition critical access hospital (66) | LOC: EMS 23:06 | PROVIDERS: ATTEND Surgery | DX: I46.9 Cardiac arrest, cause unspecified (principal) | CPT/HCPCS: A0425; A0433; A0999 ==

== ENCOUNTER 2018-12-23 23:15 | Emergency (ER) | payer MEDICAID ==
[2018-12-23] MEDS ORDERED: FOLIC ACID INJ 1 MG, THIAMINE INJ 100 MG, MAGNESIUM SULFATE 2 GM, MULTIVITAMIN 10 ML in... IV STA ×5 (23:24)
[2018-12-23] MEDS ORDERED: MAGNESIUM SULFATE 2 GRAM 2 GM/50 ML BAG IV ONE (23:25)
--- NOTE | 2018-12-23 23:34 | ED Physician Documentation ---
PD HPI CPR - Stated complaint Stated Complaint: POST ARREST - Chief complaint Chief Complaint: Critical Care - History obtained from History obtained from: EMS - History of Present Illness Timing - onset: Today Timing - onset during: Rest Preceding symptoms: Other (siezure) Contributing factors: Other (alcoholism and seizure disorder) Recently seen: Emergency Dept Witnessed: Arrest witnessed Bystander CPR: Bystander CPR EMS findings: Unresponsive, Apneic, Pulseless, V fib Treatment LABORATORY ANALYST: CPR, Defibrillated, Intubated, Epi, Dopamine, C spine immobilization, IV, IO Advanced directive: No advanced directive - Additional information Additional information: Report from medics indicates the patient was sitting on his couch watching tel evision when he had a seizure fell to the ground and became unresponsive.The patient had an unknown length of time down and when first responders arrived two shocks were indicated by the AED and when medics arrived they found the patient in ventricular fibrillation and begun a resuscitation to include multiple shocks return of circulation loss of return of circulation further shocks and return of circulation. The patient initially was on a dopamine drip on arrival to the emergency department. The patient has a history of alcoholism and prior holiday heart in [place] in 2012. He has been having seizures this past month. Review of Systems Unable to obtain: Intubated PD PAST MEDICAL HISTORY - Past Medical History Cardiovascular: DE, Other Respiratory: None Neuro: Head injury Endocrine/Autoimmune: None GI: None : None HEENT: None Psych: Depression Musculoskeletal: Osteoarthritis Derm: None - Past Surgical History Past Surgical History: Yes General: Colonoscopy Ortho: Other - Present Medications Home Medications: Ambulatory Orders Medication Instructions Recorded Confirmed Trazodone HCl 100 mg PO QPM 08/23/13 08/27/18 Meloxicam 7.5 mg PO DAILY 04/25/17 08/27/18 Omeprazole [PriLOSEC] 20 mg PO QDAC 04/25/17 08/27/18 Fluoxetine HCl [Prozac] 20 mg PO DAILY 08/11/18 08/27/18 Gabapentin [Neurontin] 300 mg PO HS 08/11/18 08/27/18 Lisinopril 10 mg PO DAILY 08/11/18 08/27/18 Cetirizine [ZyrTEC] 10 mg PO DAILY 08/27/18 08/27/18 Magnesium Oxide [Mag Ox] 400 mg PO DAILYWM #10 tablet 07/13/19 Thiamine HCl [Vitamin B-1] 100 mg PO DAILY #10 tablet 08/28/18 Famotidine 20 mg PO DAILY #30 tablet 10/05/18 Ondansetron Odt [Zofran] 4 mg TL Q6H PRN #10 tablet 10/05/18 - Allergies Allergies/Adverse Reactions: Allergies Allergy/AdvReac Type Severity Reaction Status Date / Time carrot Allergy Anaphylaxis Verified 11/19/18 09:25 celery Allergy Anaphylaxis Verified 11/19/18 09:25 - Social History Does the pt smoke?: Yes Smoking Status: Current every day smoker Does the pt drink ETOH?: Yes Does the pt have substance abuse?: No - Immunizations Immunizations are current?: Yes - POLST Patient has POLST: No PD ED PE NORMAL - Vitals Vital signs reviewed: Yes (ON arrival heart rate is 100) - General General: Well developed/nourished, Other (ET tube in place making effort to breath) - HEENT HEENT: Atraumatic, PERRL, Other (pupils are pinpoint) - Neck Neck: Supple, no meningeal sign - Cardiac Cardiac: No murmur, Other (tachy ) - Respiratory Respiratory: Other (equal breath sounds symetric rise diminished breath sounds) - Abdomen Abdomen: Soft, Non tender - Derm Derm: Normal color, Warm and dry, No rash - Extremities Extremities: No deformity, No edema - Neuro Eye Opening: None Motor: None Verbal: None GCS Score: 3 Results - Vitals Vitals: Vital Signs - 24 hr 12/23/18 12/23/18 12/23/18 23:14 23:25 23:31 Temperature 34.0 C L Heart Rate 101 H 108 H Respiratory 20 Rate Blood Pressure 130/86 H O2 Saturation 100 100 12/23/18 12/23/18 12/23/18 23:35 23:36 23:53 Temperature 35.5 C L Heart Rate 108 H 95 Respiratory 20 20 Rate Blood Pressure 142/89 H 102/72 O2 Saturation 100 100 12/24/18 12/24/18 00:00 00:02 Temperature Heart Rate 94 94 Respiratory 20 20 Rate Blood Pressure 110/74 O2 Saturation 100 Oxygen O2 Source Mechanical ventilator - EKG (time done) 2335 Rate: Rate (enter#) (107) Rhythm: Sinus tachycardia Lorenzo: LAD Intervals: Prolonged QT Compare to prior EKG: Unchanged from prior EKG (SPT 7-12-19 no sig change) Computer interpretation: Agree with computer - Labs Labs: Laboratory Tests 12/23/18 12/23/18 12/23/18 23:22 23:22 23:22 WBC 7.8 RBC 2.84 L Hgb 9.5 L Hct 30.4 L MCV 107.0 H MCH 33.5 H MCHC 31.3 L RDW 16.5 H Plt Count 198 MPV 9.2 Neut # (Auto) Not Reportable Lymph # (Auto) Not Reportable [place] # (Auto) Not Reportable Eos # (Auto) Not Reportable Baso # (Auto) Not Reportable Absolute Nucleated RBC Not Reportable Total Counted 100 Band Neuts % (Manual) 7 Abnorm Lymph % (Manual) 0 Metamyelocytes % 2 H Myelocytes % 2 H Nucleated RBC % Not Reportable Neutrophils # (Manual) 4.3 Lymphocytes # (Manual) 2.2 Monocytes # (Manual) 0.7 Eosinophils # (Manual) 0.2 Basophils # (Manual) 0.1 Differential Comment MANUAL DIFFERENTIAL WBC Morphology 1+ TOXIC GRANULATION Platelet Estimate NORMAL (130-450,000) RBC Morph Micro Appear NORMAL APPEARANCE Sodium 141 Potassium 2.5 L* Chloride 103 Carbon Dioxide 19 L Anion Gap 19.0 H BUN 5 L Creatinine 0.9 Estimated GFR (MDRD) 88 L Glucose 287 H Lactic Acid Calcium 7.2 L Magnesium 1.6 L Total Bilirubin 0.6 AST 119 H ALT < 10 L Alkaline Phosphatase 86 Total Creatine Kinase 123 CK-MB (CK-2) 3.6 B-Natriuretic Peptide Total Protein 5.4 L Albumin 2.7 L Globulin 2.7 Albumin/Globulin Ratio 1.0 Lipase 47 Urine Color Urine Clarity Urine pH Ur Specific [place] Urine Protein Urine Glucose (UA) Urine Ketones Urine Occult Blood Urine Nitrite Urine Bilirubin Urine Urobilinogen Ur Leukocyte Esterase Urine RBC Urine WBC Ur Squamous Epith Cells Urine Bacteria Ur Microscopic Review Urine Culture Comments Urine Opiates Screen Ur Oxycodone Screen Urine Methadone Screen Ur Propoxyphene Screen Ur Barbiturates Screen Ur Tricyclics Screen Ur Phencyclidine Scrn Ur Amphetamine Screen U Methamphetamines Scrn U Benzodiazepines Scrn Urine Cocaine Screen U Cannabinoids Screen Ethyl Alcohol < 5.0 12/23/18 12/23/18 12/23/18 23:22 23:30 23:37 WBC RBC Hgb Hct MCV MCH MCHC RDW Plt Count MPV Neut # (Auto) Lymph # (Auto) [place] # (Auto) Eos # (Auto) Baso # (Auto) Absolute Nucleated RBC Total Counted Band Neuts % (Manual) Abnorm Lymph % (Manual) Metamyelocytes % Myelocytes % Nucleated RBC % Neutrophils # (Manual) Lymphocytes # (Manual) Monocytes # (Manual) Eosinophils # (Manual) Basophils # (Manual) Differential Comment WBC Morphology Platelet Estimate RBC Morph Micro Appear Sodium Potassium Chloride Carbon Dioxide Anion Gap BUN Creatinine Estimated GFR (MDRD) Glucose Lactic Acid 8.9 H* Calcium Magnesium Total Bilirubin AST ALT Alkaline Phosphatase Total Creatine Kinase CK-MB (CK-2) B-Natriuretic Peptide 455 H Total Protein Albumin Globulin Albumin/Globulin Ratio Lipase Urine Color YELLOW Urine Clarity HAZY Urine pH 8.0 H Ur Specific [place] 1.020 Urine Protein >=300 H Urine Glucose (UA) 500 H Urine Ketones NEGATIVE Urine Occult Blood MODERATE H Urine Nitrite NEGATIVE Urine Bilirubin NEGATIVE Urine Urobilinogen 0.2 (NORMAL) Ur Leukocyte Esterase NEGATIVE Urine RBC 11-25 H Urine WBC 0-3 Ur Squamous Epith Cells FEW Squamous Urine Bacteria Rare Ur Microscopic Review INDICATED Urine Culture Comments NOT INDICATED Urine Opiates Screen NEGATIVE Ur Oxycodone Screen NEGATIVE Urine Methadone Screen NEGATIVE Ur Propoxyphene Screen NEGATIVE Ur Barbiturates Screen NEGATIVE Ur Tricyclics Screen NEGATIVE Ur Phencyclidine Scrn NEGATIVE Ur Amphetamine Screen NEGATIVE U Methamphetamines Scrn NEGATIVE U Benzodiazepines Scrn NEGATIVE Urine Cocaine Screen NEGATIVE U Cannabinoids Screen NEGATIVE Ethyl Alcohol - Rads (name of study) chest Radiology: Prelim report reviewed (Impression: New endotracheal tube located 6 cm above the isadora. New pulmonary venous congestion and mild diffuse bilateral airspace disease consistent with pulmonary edema), EMP read indepedently, See rad report CT head without Radiology: EMP read indepedently (no bleed) PD MEDICAL DECISION MAKING - ED course Complexity details: reviewed old records, reviewed results, re-evaluated patient, considered differential, d/w family ED course: 53-year-old male resuscitated in the field is brought to the emergency department intubated with dopamine running having been given 6 shocks 4 mg of epinephrine. The patient is making some effort to breathe here in the emergency department and has pinpoint pupils. His electrocardiogram here is similar to his prior. There is no evidence of infarction no ST elevation or depression. His laboratory studies are remarkable for a lactic acidosis hypo-kalemia and hypomagnesemia. He does not have alcohol on board today. His urine drug screen is negative. Our institution does not have a drug screen capable of detecting fentanyl. Departure - Departure Disposition: 02 Transfer Acute Care Hosp Clinical Impression: Ventricular fibrillation, Cardiac arrest, Prolonged QT interval, Alcoholism, Loss of consciousness, Seizure, Hypokalemia, Hypomagnesemia
[2018-12-23 23:37] LABS: BASOPHILS % (AUTO) 0.4 %; EOSINOPHILS % (AUTO) 0.6 %; HGB - HEMOGLOBIN 9.5 g/dL (14.0-18.0); MEAN CORPUSCULAR HEMOGLOBIN 33.5 pg (27.0-31.0); MEAN CORPUSCULAR HGB CONC 31.3 g/dL (32.0-36.0); MEAN PLATELET VOLUME 9.2 fL (7.4-11.4); MONOCYTES % (AUTO) 8.1 %; NEUTROPHILS % (AUTO) 50.5 %; PLT - PLATELET COUNT 198 10^3/uL (130-450); RED BLOOD COUNT 2.84 10^6/uL (4.70-6.10); RED CELL DISTRIBUTION WIDTH 16.5 % (12.0-15.0); WHITE BLOOD COUNT 7.8 x10^3/uL (4.8-10.8)
[2018-12-23 23:39] LABS: ABNORMAL LYMPHS % (MANUAL) 0 %
[2018-12-23 23:41] LABS: MUDS CUTOFF CONCENTRATIONS CUTOFF CONC BELOW:
[2018-12-23 23:42] LABS: BILIRUBIN,URINE NEGATIVE (NEGATIVE); GLUCOSE, URINE (UA) 500 mg/dL (NEGATIVE); KETONES,URINE (UA) NEGATIVE (NEGATIVE); LEUKOCYTE ESTERASE, URINE NEGATIVE (NEGATIVE); NITRITE,URINE NEGATIVE (NEGATIVE); OCCULT BLOOD,URINE MODERATE (NEGATIVE); PROTEIN,URINE >=300 mg/dL (NEGATIVE); UROBILINOGEN,URINE 0.2 (NORMAL) E.U./dL (NORMAL)
[2018-12-23 23:44] LABS: CLARITY,URINE HAZY (CLEAR)
[2018-12-23] MEDS ORDERED: POTASSIUM CHLOR 10 MEQ/100 ML 10 MEQ/100 ML BAG IV SCH (23:45)
[2018-12-23 23:50] LABS: ALBUMIN 2.7 g/dL (3.2-5.5); ALKALINE PHOSPHATASE 86 IU/L (42-121); AST ASPARTATE AMINOTRANSFERASE 119 IU/L (10-42); BILIRUBIN,TOTAL 0.6 mg/dL (0.2-1.0); BUN - BLOOD UREA NITROGEN 5 mg/dL (6-20); CALCIUM 7.2 mg/dL (8.5-10.3); CARBON DIOXIDE - CO2 19 mmol/L (21-32); CHLORIDE 103 mmol/L (101-111); CK- CREATINE KINASE 123 IU/L (22-269); CREATININE 0.9 mg/dL (0.6-1.2); GFR - MDRD 88 (>89); GLUCOSE 287 mg/dL (70-100); LIPASE 47 U/L (22-51); MAGNESIUM 1.6 mg/dL (1.7-2.8); SODIUM 141 mmol/L (135-145); TOTAL PROTEIN 5.4 g/dL (6.7-8.2)
[2018-12-23 23:52] LABS: AMPHETAMINE SCREEN,URINE NEGATIVE (NEGATIVE); BENZODIAZEPINES SCREEN, URINE NEGATIVE (NEGATIVE); COCAINE SCREEN URINE NEGATIVE (NEGATIVE); METHAMPHETAMINES SCREEN, URINE NEGATIVE (NEGATIVE); OPIATE SCREEN, URINE NEGATIVE (NEGATIVE)
[2018-12-23 23:53] LABS: ALT ALANINE AMINOTRANSFERASE < 10 IU/L (10-60)
[2018-12-23 23:53] LABS: METHADONE SCREEN, URINE NEGATIVE (NEGATIVE); OXYCODONE SCREEN, URINE NEGATIVE (NEGATIVE); PROPOXYPHENE SCREEN, URINE NEGATIVE (NEGATIVE); TRICYCLIC ANTIDEPRESSANT,URINE NEGATIVE (NEGATIVE)
[2018-12-23 23:58] LABS: BACTERIA,URINE Rare /HPF (None Seen); SQUAMOUS EPITHELIAL CELL,UR FEW Squamous (<= Few)
[2018-12-24 00:02] VITALS: BP 110/74
--- NOTE | 2018-12-24 00:04 | XRAY Report ---
Reason: chest pain Procedure Date: 12/23/2018 Accession Number: [id number] / [id number] Procedure: XR - Chest 1 View X-Ray CPT Code: 22710 Final Report FULL RESULT: EXAM: CHEST RADIOGRAPHY EXAM DATE: 12/23/2018 11:30 PM. CLINICAL HISTORY: Chest pain. COMPARISON: CHEST 1 VIEW 07/18/2018 11:56 PM. TECHNIQUE: 1 view. FINDINGS: New endotracheal tube located 6 cm above the isadora. Lungs/Pleura: New pulmonary venous congestion and mild diffuse bilateral airspace disease consistent with pulmonary edema. No pleural effusion or pneumothorax. A couple of left mid lateral calcified pulmonary nodules appear unchanged. Mediastinum: Within exam limitations, the cardiomediastinal contour is normal. IMPRESSION: New endotracheal tube located 6 cm above the isadora. New pulmonary venous congestion and mild diffuse bilateral airspace disease consistent with pulmonary edema. [facility]
[2018-12-24 00:12] LABS: BAND NEUTROPHILS % (MANUAL) 7 %; BASOPHILS # (MANUAL) 0.1 10^3/uL (0-0.1); BASOPHILS % (MANUAL) 1 %; DIFFERENTIAL COMMENT MANUAL DIFFERENTIAL; EOSINOPHILS # (MANUAL) 0.2 10^3/uL (0-0.7); LYMPHOCYTES # (MANUAL) 2.2 10^3/uL (1.5-3.5); LYMPHOCYTES % (MANUAL) 28 %; METAMYELOCYTES % (MANUAL) 2 %; MONOCYTES # (MANUAL) 0.7 10^3/uL (0.0-1.0); MYELOCYTES % (MANUAL) 2 %; PLATELET ESTIMATE, MANUAL NORMAL (130-450,000) (NORMAL); RBC MORPHOLOGY (MULTIPLE) NORMAL APPEARANCE (NORMAL)
--- NOTE | 2018-12-24 00:26 | CT Report ---
Reason: seizure arrest Procedure Date: 12/23/2018 Accession Number: [id number] / [id number] Procedure: CT - HEAD WO CPT Code: Final Report FULL RESULT: EXAM: CT HEAD EXAM DATE: 12/23/2018 11:53 PM. CLINICAL HISTORY: Seizure, arrest. COMPARISON: CT HEAD W/O 11/19/2018 9:46 AM. TECHNIQUE: Multiaxial CT images were obtained from the foramen magnum to the vertex. Reformats: Sagittal and coronal. IV contrast: None. In accordance with CT protocol optimization, one or more of the following dose reduction techniques were utilized for this exam: automated exposure control, adjustment of mA and/or KV based on patient size, or use of iterative reconstructive technique. FINDINGS: Parenchyma: No intraparenchymal hemorrhage. No evidence of mass, midline shift, or CT findings of acute territorial infarction. Hunt-white differentiation is indistinct. Extraaxial Spaces: Normal for age. No subdural or epidural collections identified. Ventricles: Normal in size and position. Sinuses and Orbits: Scattered mucosal thickening in the visualized paranasal sinuses. Bones: Stable chronic bone fractures. No evidence of skull fracture or calvarial defect. Other: None. IMPRESSION: 1. No intracranial hemorrhage, mass-effect or midline shift. 2. Indistinct hunt-white matter differentiation which could be related to technical artifact or early changes of anoxic brain injury/cerebral edema following cardiac arrest. Recommend clinical correlation and follow-up imaging to reassess as clinically indicated. 3. Old nasal bone fractures. [facility] The call report notification system was initiated by Dr. Melissa Hemphill at 12:19 AM on 12/24/2018. The above call report findings were discussed with ED Physician by Dr. Melissa Hemphill at 12:25 AM on 12/24/2018.
== END 2018-12-24 00:15 | disposition short-term general hospital (02) ==
LOC: EDUNIT# → ED 23:15
DX: I49.01 Ventricular fibrillation (principal); I46.9 Cardiac arrest, cause unspecified; I45.81 Long QT syndrome; R56.9 Unspecified convulsions; R55 Syncope and collapse; R00.0 Tachycardia, unspecified; F10.20 Alcohol dependence, uncomplicated; E87.2 Acidosis; E87.6 Hypokalemia; E83.42 Hypomagnesemia; I25.2 Old myocardial infarction; F17.200 Nicotine dependence, unspecified, uncomplicated
CPT/HCPCS: 36415; 70450; 71045; 80053; 80306; 80320; 81001; 82550; 82553; 83605; 83690; 83735; 83880; 85025; 93005; 96365; 99285; J3411; 81003; 87086; 94770

== ENCOUNTER 2018-12-24 00:19 | Outpatient (CLI) | payer MEDICAID | END 2018-12-24 00:20 | disposition short-term general hospital (02) | LOC: EMS 00:19 | PROVIDERS: ATTEND Surgery | DX: I46.9 Cardiac arrest, cause unspecified (principal) | CPT/HCPCS: A0425; A0428 ==